=== PATIENT | female | born 1955 | race Caucasian/White ===

== ENCOUNTER → 2020-02-21 11:41 | Outpatient (CLI) | payer MEDICARE, SELFPAY ==
[2013-06-19 18:54] VITALS: BMI 17.9
[2020-02-21 15:34] LABS: Absolute Lymphocyte Count 1.12 X10^3/uL (0.83-4.51); Basophil# 0.03 X10^3/uL; Basophil% 0.5 % (0-1); Eosinophil# 0.05 X10^3/uL; Eosinophils% 0.8 % (0-5); Hematocrit 37.5 % (37-47); Hemoglobin 12.2 g/dL (12.0-15.0); Lymphocyte # 1.12 X10^3/ul (4.0); Mean Corp Hgb Conc 32.5 g/dL (32-36); Mean Corpuscular Hgb 35.7 pg (27.0-32.0); Mean Corpuscular Volume 109.6 fL (81-99); Monocyte# 0.41 X10^3/uL; Monocyte% 6.2 % (0-10); NRBC Flagged by Analyzer 0 % (0-5); Neutrophil # 4.96 X10^3/uL (2.7-7.7); Neutrophil % 75.3 % (47-70); Platelet Count 160 K/mm3 (150-450); RBC Distribution Width CV 12.3 % (11.6-14.6); RBC Distribution Width SD 50.4 fl (35.1-43.9); Red Blood Count 3.42 M/mm3 (4.2-5.4); White Blood Count 6.6 K/mm3 (4.4-11.0)
[2020-02-21 16:02] LABS: ALB/GLOB Ratio 0.8 RATIO (0.9-2.4); AST(SGOT) 82 U/L (15-37); Alanine Aminotransfer ALT/SGPT 47 U/L (13-56); Albumin, Serum 2.8 g/dL (3.2-5.0); Alkaline Phosphatase 290 U/L (45-117); Anion Gap 11 (5-15); BUN 2 mg/dL (7-18); Calcium,Total 8.7 mg/dL (8.5-10.1); Chloride 98 mmol/L (98-107); Cholesterol 123 mg/dL (200); EST Glomerular Filtration Rate 168 mL/min (>60); Est Glom Filt Rate - Afr Amer 203 mL/min (>60); Ferritin 515 ng/mL (8-252); Globulin 3.3 g/dL (2.2-4.2); Glucose 85 mg/dL (74-106); High Density Lipoprotein 61 mg/dL; Potassium 4.1 mmol/L (3.5-5.1); Protein, Total 6.1 g/dL (6.4-8.2); Sodium Level 132 mmol/L (136-145); Thyroid Stim Hormone (TSH) 0.92 uIU/mL (0.358-3.74); Triglycerides 94 mg/dL; Very Low Density Lipoprotein 19 mg/dL (5-40)
[2020-02-21 16:04] LABS: Vitamin B12 1597 pg/mL (211-911); Vitamin D,25 Hydroxy 41.9 ng/mL
== END ==
PROVIDERS: Visit Provider Family Medicine
DX: R53.83 Other fatigue (principal); Z13.220 Encounter for screening for lipoid disorders
CPT/HCPCS: 36415; 80053; 80061; 82306; 82607; 82728; 84443; 85025

== ENCOUNTER → 2020-02-27 14:11 | Outpatient (CLI) | payer MEDICARE, OTHER, SELFPAY ==
--- NOTE | 2020-02-27 14:13 | CT_ITS ---
STUDY: CT CHEST WITHOUT CONTRAST- LOW DOSE SCREENING PROTOCOL REASON FOR EXAM: Female, 64 years old. Current smoker. 52 pack per year history. No current symptoms of lung cancer or pulmonary infection. Shared decision-making with referring PCP documented in patient''s record. RADIATION DOSAGE (If Supplied By Facility): CTDIvol = ( 1.70 ) mGy, DLP = ( 53.82 ) mGycm TECHNIQUE: Low dose screening CT examination performed from the base of the neck to the upper abdomen. Sagittal and coronal reformatted images performed. Sagittal and coronal MIP images provided. The measurements provided are average, rounded measurements per ACR guidelines. COMPARISON: None. FINDINGS: Mild emphysematous changes. Mild bilateral apical scarring. There is no demonstrated pleural abnormality. Normal heart and pericardium. There are calcifications of the coronary arteries. Normal mediastinum. Normal hilar regions. Normal unenhanced pulmonary arteries. There is atherosclerotic calcification of the aortic arch with tortuosity and elongation of the aortic arch and descending thoracic aorta. Normal osseous structures. There is no demonstrated abnormality of the visualized upper abdomen. CT/Low Dose CT Lung Screening IMPRESSION: 1. No significant indeterminate incidental findings requiring additional imaging. 2. Incidental findings include mild emphysema and bilateral apical scarring.. ASSESSMENT CATEGORY: LungRADS 1 - Negative. Continue annual screening with LDCT in 12 months, per established ACR guidelines. Electronically Signed: Brad Osuna MD at 14:44 EST Tel , Service support ,
== END ==
PROVIDERS: PCP Family Medicine; Referring Provider Family Medicine; Visit Provider Family Medicine
DX: F17.210 Nicotine dependence, cigarettes, uncomplicated (principal)
CPT/HCPCS: G0297

== ENCOUNTER → 2020-03-19 09:29 | Outpatient (CLI) | payer MEDICARE, OTHER, SELFPAY ==
[2013-06-19 18:54] VITALS: BMI 17.9
[2020-03-19 10:44] LABS: GGTP 240 U/L (5-55)
[2020-03-20 06:07] LABS: HEPATITIS B SURFACE AG Negative (Negative); Hepatitis A AB, Total Positive (Negative); Hepatitis A IgM Antibody Negative (Negative); Hepatitis B Core AB IgM Negative (Negative); Hepatitis B Core Ab Total Negative (Negative); Hepatitis C Ab 0.1 s/co ratio (0.0-0.9)
[2020-03-20 14:02] LABS: Hep B Surface Antibodies Non Reactive (.)
== END ==
PROVIDERS: PCP Family Medicine; Visit Provider Family Medicine
DX: R79.89 Other specified abnormal findings of blood chemistry (principal); R74.8 Abnormal levels of other serum enzymes
CPT/HCPCS: 36415; 82977; 86704; 86705; 86706; 86708; 86709; 86803; 87340

== ENCOUNTER → 2020-03-23 07:54 | Outpatient (CLI) | payer MEDICARE, OTHER, SELFPAY ==
--- NOTE | 2020-03-23 07:57 | US_ITS ---
STUDY: ABDOMINAL ULTRASOUND - RIGHT UPPER QUADRANT REASON FOR VISIT: Female, 64 years old ELEVATED LIVER ENZYMES -- FATIGUE -- NO APPETITE TECHNIQUE: Ultrasound evaluation of the right upper quadrant was performed with real-time and static campos-scale imaging. TECHNICAL QUALITY: Adequate. COMPARISON: None. FINDINGS: Liver: The liver measures 14.5 cm. There is increased echogenicity consistent with fatty infiltration. The bile ducts are within normal limits. There is hepatic color flow. The direction of portal flow is hepatopetal. There is no demonstrated mass lesion. Gallbladder: Normal distended gallbladder. The gallbladder wall measures 1.5 mm. There is a negative sonographic Denis''s sign. There is no pericholecystic fluid. There are no gallstones. Sludge is seen within the gallbladder lumen. Common Bile Duct (C.B.D.): The common bile duct measures 5.0 mm. Pancreas: Normal size of the head, body and tail of the pancreas. There is normal echogenicity of the pancreas. There is no demonstrated pancreatic mass or cyst. Right Kidney: Normal size of the right kidney. The right kidney measures 9 cm x 4.1 cm x 3.8 cm. Normal renal cortex. The right cortex measures 1.2 cm. There is a 1.6 cm x 1.3 cm x 1.1 cm cyst. There is no right hydronephrosis. US/Abdomen Limited IMPRESSION: Fatty infiltration of the liver. Sludge is seen within the gallbladder lumen. 1.6 cm x 1.3 cm x 1.1 cm right renal cyst Electronically Signed: Jewel Tee, at 8:53 EST , Service support ,
== END ==
PROVIDERS: PCP Family Medicine; Referring Provider Family Medicine; Visit Provider Family Medicine
DX: R79.89 Other specified abnormal findings of blood chemistry (principal)
CPT/HCPCS: 76705

== ENCOUNTER → 2020-05-07 11:19 | Outpatient (CLI) | payer MEDICARE, OTHER, SELFPAY ==
[2013-06-19 18:54] VITALS: BMI 17.9
[2020-05-07 15:14] LABS: Absolute Lymphocyte Count 1.06 X10^3/uL (0.83-4.51); Absolute Neutrophil Count 5.4 X10^3/uL (2.0-7.7); Basophil# 0.02 X10^3/uL; Basophil% 0.3 % (0-1); Eosinophil# 0.02 X10^3/uL; Eosinophils% 0.3 % (0-5); Hematocrit 34.1 % (37-47); Hemoglobin 10.9 g/dL (12.0-15.0); Lymphocyte # 1.06 X10^3/ul (4.0); Lymphocyte % 15.5 % (19-41); Mean Corpuscular Volume 112.5 fL (81-99); Mean Platelet Vol. 12.5 fl (6.2-12.0); Monocyte# 0.37 X10^3/uL; Monocyte% 5.4 % (0-10); NRBC Flagged by Analyzer 0 % (0-5); Neutrophil # 5.35 X10^3/uL (2.7-7.7); Neutrophil % 78.2 % (47-70); Platelet Count 169 K/mm3 (150-450); RBC Distribution Width CV 12.8 % (11.6-14.6); RBC Distribution Width SD 52.9 fl (35.1-43.9); Red Blood Count 3.03 M/mm3 (4.2-5.4); White Blood Count 6.8 K/mm3 (4.4-11.0)
[2020-05-07 15:48] LABS: ALB/GLOB Ratio 0.8 RATIO (0.9-2.4); AST(SGOT) 73 U/L (15-37); Alanine Aminotransfer ALT/SGPT 42 U/L (13-56); Albumin, Serum 2.7 g/dL (3.2-5.0); Alkaline Phosphatase 343 U/L (45-117); Anion Gap 14 (5-15); BUN 4 mg/dL (7-18); BUN/Creat Ratio 6.4 RATIO (10-20); Chloride 95 mmol/L (98-107); Creatinine, Serum 0.62 mg/dL (0.55-1.02); EST Glomerular Filtration Rate 102 mL/min (>60); Est Glom Filt Rate - Afr Amer 123 mL/min (>60); Globulin 3.4 g/dL (2.2-4.2); Glucose 94 mg/dL (74-106); Protein, Total 6.1 g/dL (6.4-8.2); Sodium Level 129 mmol/L (136-145)
== END ==
PROVIDERS: PCP Family Medicine; Referring Provider Family Medicine; Visit Provider Family Medicine
DX: K62.5 Hemorrhage of anus and rectum (principal)
CPT/HCPCS: 36415; 80053; 85025

== ENCOUNTER 2020-05-07 21:49 | Inpatient (IN) | payer MEDICARE, OTHER, SELFPAY ==
[2020-05-07 21:50] VITALS: BP 95/68; PULSE 114; RESP 15; O2SAT 98
[2020-05-07 21:51] VITALS: BP 95/68; PULSE 115; RESP 16; TEMP 36.6; O2SAT 100; BMI 16.7
--- NOTE | 2020-05-07 22:25 | RAD_ITS ---
STUDY: X-RAY - LEFT FEMUR REASON FOR STUDY: Female, 64 years old. S/P FALL -- C/O LT HIP PAIN TECHNIQUE: 2 view(s) of the femur. COMPARISON: None. FINDINGS: Comminuted displaced fracture of the intertrochanteric region of the femur. Femoral shaft is significantly cephalad to the femoral neck. Femoral shaft is also dorsal to the femoral head. Normal femoral shaft and distal femoral metaphysis. Normal visualized soft tissue structure. RAD/Femur Min 2 Views IMPRESSION: Significantly displaced intertrochanteric fracture of the femur. Electronically Signed: Ellis Herrera MD at 23:31 EST , Service support ,
--- NOTE | 2020-05-07 22:26 | EKG12_ITS ---
Test Reason : FALL Blood Pressure : / mmHG Vent. Rate : 095 BPM Atrial Rate : 095 BPM P-R Int : 120 ms QRS Dur : 066 ms QT Int : 376 ms P-R-T Axes : 082 028 060 degrees QTc Int : 472 ms Normal sinus rhythm Normal ECG Confirmed by BRIGIDO CELIS, ANDREY ([id number]), editor book RUBIA CRUZ ([id number]) on 05/09/2020 12:45:48 PM Referred By: LUZMA Confirmed By:ANDREY FOFANA MD
--- NOTE | 2020-05-07 22:26 | RAD_ITS ---
STUDY: X-RAY - PELVIS REASON FOR EXAM: Female, 64 years old. S/P FALL -- C/O LT HIP PAIN TECHNIQUE: One view of the pelvis was obtained. COMPARISON: None. FINDINGS: Comminuted displaced fracture of the intertrochanteric region of the femur. Femoral shaft is significantly cephalad to the femoral neck. Femoral shaft is also dorsal to the femoral head. Normal bilateral iliac wings, sacroiliac joints and visualized sacrum. Normal visualized bilateral superior and inferior pubic rami. Normal pubic symphysis. Normal ischial tuberosities. Normal visualized right femoral head. Normal right acetabulum. Normal right hip joint. RAD/Pelvis 1 or 2 Views IMPRESSION: Significantly displaced intertrochanteric fracture of the femur. Electronically Signed: Ellis Herrera MD at 23:33 EST , Service support ,
[2020-05-07] MEDS: fentaNYL 100 MCG/2 ML Ampul 25 MCG IM (22:38)
[2020-05-07 22:56] VITALS: BP 104/72; PULSE 95; RESP 18; O2SAT 100
[2020-05-07 23:07] LABS: Absolute Neutrophil Count 12.1 X10^3/uL (2.0-7.7); Basophil# 0.03 X10^3/uL; Basophil% 0.2 % (0-1); Eosinophil# 0.02 X10^3/uL; Eosinophils% 0.1 % (0-5); Hematocrit 29.1 % (37-47); Hemoglobin 9.6 g/dL (12.0-15.0); Mean Corpuscular Hgb 36.6 pg (27.0-32.0); Mean Corpuscular Volume 111.1 fL (81-99); Mean Platelet Vol. 12.1 fl (6.2-12.0); Monocyte# 0.92 X10^3/uL; Monocyte% 6.2 % (0-10); NRBC Flagged by Analyzer 0 % (0-5); Neutrophil # 12.05 X10^3/uL (2.7-7.7); Neutrophil % 80.6 % (47-70); Platelet Count 170 K/mm3 (150-450); RBC Distribution Width CV 12.6 % (11.6-14.6); RBC Distribution Width SD 50.4 fl (35.1-43.9); Red Blood Count 2.62 M/mm3 (4.2-5.4)
--- NOTE | 2020-05-07 23:10 | RAD_ITS ---
STUDY: X-RAY CHEST REASON FOR EXAM: Female, 64 years old. preop -- S/P FALL -- C/O LT HIP PAIN TECHNIQUE: Single AP portable view of the chest. COMPARISON: None. FINDINGS: The lungs are clear and expanded. There is no demonstrated pleural abnormality. Normal size heart. Normal mediastinum and maame. Normal visualized pulmonary arteries. Normal visualized aortic arch and descending thoracic aorta. There are diffuse degenerative changes of the visualized thoracic spine. Normal visualized ribs, clavicles, and shoulders. There is no demonstrated abnormality of the visualized soft tissue structures of the upper abdomen. RAD/Chest 1 View (Portable) IMPRESSION: No definite acute or significant abnormality seen. Electronically Signed: Ellis Herrera MD at 23:34 EST , Service support ,
[2020-05-07 23:11] LABS: International Normalized Ratio 1.2; Prothrombin Time (Protime)PT. 14.7 SECONDS (11.7-14.9)
[2020-05-07 23:12] LABS: Partial Thromboplast Time 23.2 Seconds (24.1-36.2)
[2020-05-07 23:16] LABS: Anion Gap 17 (5-15); BUN 4 mg/dL (7-18); BUN/Creat Ratio 5.8 RATIO (10-20); Calcium,Total 8.5 mg/dL (8.5-10.1); Chloride 93 mmol/L (98-107); Creatinine, Serum 0.69 mg/dL (0.55-1.02); EST Glomerular Filtration Rate 90 mL/min (>60); Est Glom Filt Rate - Afr Amer 109 mL/min (>60); Estimated Creatinine Clearance 34.07 ml/min; Glucose 118 mg/dL (74-106); Sodium Level 125 mmol/L (136-145)
--- NOTE | 2020-05-07 23:45 | ED.VIS.FALL ---
History of Present Illness Chief Complaint: Fall Informant: Patient, Family Occurred: Today Mechanism/Context: Same level fall, Trip Usually ambulates: Without assistance Narrative: Patient is a 64-year-old female without any known medical history presenting with left hip pain. Patient was walking inside when she somehow tripped and fell. Patient could not get up and had left hip pain. She states she has pain when she moves her hip. EMS was called and patient was transported to the emergency room. Patient notes she has had a general decline in her health over the past year since her . She lives home alone and ambulates independently at baseline. Patient has been having episodes of diarrhea with blood in her stool. She recently saw her primary care doctor who confirmed the blood. Patient is a consultation appointment to see Dr. Person for further evaluation of this on Thursday, 2 days from now. Patient also had a weight loss over this time. Patient denies associated numbness or tingling. She denies any shortness of breath or difficulty breathing. She does smoke cigarettes daily. She denies any other complaints at this time. Past Medical History - Allergies and Home Meds Allergies/Adverse Reactions: Allergies No Known Allergies Allergy (Verified 05/07/20 21:51) Past Medical History: None Surgical History: noncontributory Lives: Alone Smoking Status: Current every day smoker Alcohol: None Drugs: None Review of Systems General: Reports: Malaise, Weight loss. Denies: Chills, Fever, Sweats Eyes: Denies: Visual changes - bilaterally, Diplopia ENT: Denies: Rhinorrhea, Sore throat Cardiovascular: Denies: Chest pain, Palpitations Respiratory: Reports: Cough - Chronic smoker's cough. Denies: Dyspnea Gastrointestinal: Reports: Hematochezia. Denies: Abdominal pain, Nausea, Vomiting, Diarrhea, Melena Genitourinary: Denies: Dysuria, Hematuria, Frequency Musculoskeletal: Reports: Extremity Pain - Left hip. Denies: Back pain Skin: Denies: Rash, Wounds Neurological: Denies: Headache, Weakness, Numbness Physical Exam Vital Signs/Narrative: Vital Signs Temp Pulse Resp BP Pulse Ox 05/07/20 22:56 95 18 104/72 100 05/07/20 21:51 97.8 F 115 H 16 95/68 100 05/07/20 21:50 114 H 15 95/68 98 Inital Vital Signs reviewed: Yes General: Well developed, Cachectic Head: Normocephalic, Atraumatic Eyes: Perrl, EOMI ENT: TM's clear, No hemotympanum or drainage, No trauma. Negative for: Nasal trauma, Nasal septal hematoma Neck: Nontender, Full ROM. Negative for: Spinal Tenderness, Paraspinal Tenderness Cardiovascular: Regular rate, Regular rhythm, No murmurs, - - 2+ bilateral DP pulses Respiratory: No distress, CTA bilaterally, Chest nontender Abdomen: Soft, Nontender, Nondistended, Normal bowel sounds Back: Nontender Extremeties: Left lower extremity is shortened and externally rotated. She has tenderness palpation with range of motion of the left hip. Also tenderness to palpation over the left greater trochanter. No other deformity or injury is noted. Skin: No rash, Pallor. Negative for: Trauma Neurological: Alert, Oriented x3, Cranial nerves II-XII grossly intact, Normal Strength, Normal Sensation Psychological: Normal affect Diagnostic/Tx/Re-eval Chest X-Ray - ED: 1 View, Read by ED Physician, Read by Radiologist, No Acute Disease Clinical Impression(s) from Imaging Studies Femur X-Ray 05/07/20 22:25 IMPRESSION: Significantly displaced intertrochanteric fracture of the femur. Electronically Signed: Ellis Herrera MD at 23:31 EST , Service support , Pelvis X-Ray 05/07/20 22:26 IMPRESSION: Significantly displaced intertrochanteric fracture of the femur. Electronically Signed: Ellis Herrera MD at 23:33 EST , Service support , Chest X-Ray 05/07/20 23:10 IMPRESSION: No definite acute or significant abnormality seen. Electronically Signed: Ellis Herrera MD at 23:34 EST , Service support , Laboratory Data 05/07/20 05/07/20 05/07/20 22:55 22:55 22:55 WBC 15.0 H RBC 2.62 L Hgb 9.6 L Hct 29.1 L MCV 111.1 H MCH 36.6 H MCHC 33.0 RDW Std Deviation 50.4 H RDW Coeff of Alana 12.6 Plt Count 170 MPV 12.1 H Immature Gran % (Auto) 0.900 Neut % (Auto) 80.6 H Lymph % (Auto) 12.0 L [place] % (Auto) 6.2 Eos % (Auto) 0.1 Baso % (Auto) 0.2 Absolute Neuts (auto) 12.1 H Absolute Lymphs (auto) 1.80 Nucleated RBC % 0 PT 14.7 INR 1.2 APTT 23.2 L Sodium 125 L Potassium 4.0 Chloride 93 L Carbon Dioxide 15.0 L Anion Gap 17 H BUN 4 L Creatinine 0.69 Estim Creat Clear Calc 34.07 Est GFR (MDRD) Af Amer 109 Est GFR (MDRD) Non-Af 90 BUN/Creatinine Ratio 5.8 L Glucose 118 H Calcium 8.5 - Rhythm Strip Rhythm Strip: Sinus Rhythm Rate: 95 Ectopy: None - EKG Initial EKG Interpretation: Sinus Rhythm, - - Normal sinus rhythm at a rate of 95 Normal axis Normal intervals Normal ST segments Interpreted by emergency medicine physician - Medical Decision Making Patient evaluated after mechanical fall. Patient has an obvious deformity of her left hip. X-ray confirms left intertrochanteric fracture with significant displacement. Patient is neuro vastly intact. She is given 25 micrograms of fentanyl for pain control which provides good relief. Patient is given a small fluid bolus. Patient be admitted to medicine service for medical optimization in anticipation of ORIF for her hip. Case is discussed with Ortho on-call, Dr. Mckee. Patient's lab work is remarkable for no leukocytosis and a mild drop in her hemoglobin. I suspect her leukocytosis is reactive from her fall. Patient has been having some ongoing GI bleeding per her history however her BUN is normal. Patient is hyponatremic with a sodium of 125. Patient's anion gap is mildly elevated at 17. I suspect patient has a component of malnutrition and dehydration. ED Disposition - Plan for ED Patient: Disposition: Acute Care Hospital [facility] Diagnosis: Closed left hip fracture, Anemia, Hyponatremia
[2020-05-08] VITALS (18 sets, daily range): BP systolic 102–145; BP diastolic 57–99; PULSE 75–114; RESP 16–18; TEMP 36.1–37; O2SAT 93–100; BMI 15.3
--- NOTE | 2020-05-08 00:11 | PCM.HP.STD ---
Problem List (1) Closed left hip fracture Status: Acute (2) Anemia Status: Chronic (3) Hyponatremia Status: Acute History of Present Illness Date of Admission: 05/08/20 Chief Complaint: fall with closed left hip fracture The patient is a 64 year old female patient with a fall earlier this evening while she was going in her garage to get something from her car the patient describes turning and then suddenly falling to the ground. She denies loss of consciousness no chest pain or shortness of breath at the time of falling or thereafter. The patient does have a history of anemia and and her hemoglobin currently is 9.6. Initial sodium was low at 125 and will be corrected over the night. Orthopedic surgeon has been notified patient will be made n.p.o. pending surgery evaluation. Pain is currently controlled in the ER. Past Medical History Past Medical History (Chronic Problems): Chronic Problems Anemia (Chronic) Allergies No Known Allergies Allergy (Verified 05/07/20 21:51) Home Medications: Ambulatory Orders Medication Instructions Recorded No Known/Unobtainable [No Known 06/19/13 Home Medications] Surgical History: noncontributory Lives: Alone Smoking Status: Current every day smoker Tobacco Use: Cigarettes Alcohol: None Drugs: None - *Family History Maternal History Items: No pertinent history Review of Systems Constitutional: Reports: Weakness, -. Denies: Chills, Fever, Weight Change HEENT: Denies: Head Aches, Sinus Congestion, Sinus Drainage Cardiovascular: Denies: Chest Pain, Palpitations Respiratory: Denies: Cough, Shortness of breath at rest, Sputum production Gastrointestinal: Denies: Abdominal Pain, Nausea, Vomiting Genitourinary: Denies: Dysuria Musculoskeletal: Reports: Joint Pain, Joint Tenderness Skin: Denies: Rash, Wounds Neurological: Denies: Numbness, Tingling, Focal weakness Psychiatric: Denies: Anxiety, Depression, Homicidal Ideations, Suicidal Ideations Hematologic/ Lymphatic: Denies: Easy Bruising, Easy Bleeding VTE Information - Inpt Only VTE Present on Admission: No VTE Mechan Device Prophylaxis: None VTE Pharm Prophylaxis ordered?: Yes Patient Problems: Active and Suspected Problems Closed left hip fracture (Acute) Hyponatremia (Acute) - Physical Exam Vitals/I&O's: Vital Signs Temp Pulse Resp BP Pulse Ox 97.8 F 95 18 104/72 100 05/07/20 21:51 05/07/20 22:56 05/07/20 22:56 05/07/20 22:56 05/07/20 22:56 Oxygen Delivery Method Room Air Weight: 85 lb 15.684 oz Body Mass Index (BMI) 16.7 General: Alert, Oriented x3, Cooperative HEENT: Atraumatic, Normocephalic Neck: Supple Lungs: Clear to auscultation, Normal air movement Cardiovascular: Regular rate, Normal S1, Normal S2, No murmurs Abdomen: Bowel Sounds Present, Soft, Non Tender Extremities: No edema Skin: No rashes Musculoskeletal: Tenderness - left hip Neurological: Neuro grossly intact Psych/Mental Status: Normal Affect, Appropriate Laboratory Results 05/07/20 22:55: WBC 15.0 H, RBC 2.62 L, Hgb 9.6 L, Hct 29.1 L, MCV 111.1 H, MCH 36.6 H, MCHC 33.0, RDW Std Deviation 50.4 H, RDW Coeff of Alana 12.6, Plt Count 170, MPV 12.1 H, Immature Gran % (Auto) 0.900, Neut % (Auto) 80.6 H, Lymph % (Auto) 12.0 L, [place] % (Auto) 6.2, Eos % (Auto) 0.1, Baso % (Auto) 0.2, Absolute Neuts (auto) 12.1 H, Absolute Lymphs (auto) 1.80, Nucleated RBC % 0 05/07/20 22:55: PT 14.7, INR 1.2, APTT 23.2 L 05/07/20 22:55: Sodium 125 L, Potassium 4.0, Chloride 93 L, Carbon Dioxide 15.0 L, Anion Gap 17 H, BUN 4 L, Creatinine 0.69, Estim Creat Clear Calc 34.07, Est GFR (MDRD) Af Amer 109, Est GFR (MDRD) Non-Af 90, BUN/Creatinine Ratio 5.8 L, Glucose 118 H, Calcium 8.5 Assessment/Plan All Active Problems Closed left hip fracture (Acute) Hyponatremia (Acute) Chronic Problems Anemia (Chronic) Plan 1. Left hip fracture?admit patient to general medical floor, consult orthopedic surgeon Dr. Mckee, continue bedrest only, start morphine as needed for pain, make patient n.p.o. pending surgery. IV fluids as below 2. Hyponatremia?IV normal saline at 125 cc/h, repeat BMP in the morning 3. Anemia?repeat CBC in the morning 4. DVT prophylaxis?low molecular weight heparin Inpatient E&M: [id number] Init Hosp L3
[2020-05-08] MEDS: fentaNYL 100 MCG/2 ML Ampul 25 MCG IV (00:23)
[2020-05-08] MEDS: 0.9% Normal Saline 1,000 ML 125 ML IV (01:57)
[2020-05-08] MEDS: 0.9% Saline Lock 10 ML Syringe IV ×3 (02:02→21:19)
[2020-05-08 03:48] LABS: Absolute Lymphocyte Count 1.23 X10^3/uL (0.83-4.51); Absolute Neutrophil Count 5.2 X10^3/uL (2.0-7.7); Basophil# 0.01 X10^3/uL; Basophil% 0.1 % (0-1); Hematocrit 24.8 % (37-47); Hemoglobin 8.2 g/dL (12.0-15.0); Lymphocyte # 1.23 X10^3/ul (4.0); Lymphocyte % 17.8 % (19-41); Mean Corp Hgb Conc 33.1 g/dL (32-36); Mean Corpuscular Hgb 36.1 pg (27.0-32.0); Mean Corpuscular Volume 109.3 fL (81-99); Monocyte# 0.49 X10^3/uL; Monocyte% 7.1 % (0-10); NRBC Flagged by Analyzer 0 % (0-5); Neutrophil # 5.15 X10^3/uL (2.7-7.7); Neutrophil % 74.6 % (47-70); Platelet Count 129 K/mm3 (150-450); RBC Distribution Width CV 12.5 % (11.6-14.6); RBC Distribution Width SD 49.1 fl (35.1-43.9); Red Blood Count 2.27 M/mm3 (4.2-5.4); White Blood Count 6.9 K/mm3 (4.4-11.0)
[2020-05-08 03:54] LABS: International Normalized Ratio 1.4; Prothrombin Time (Protime)PT. 16.7 SECONDS (11.7-14.9)
[2020-05-08 03:56] LABS: Partial Thromboplast Time 29.8 Seconds (24.1-36.2)
[2020-05-08 03:57] LABS: Anion Gap 9 (5-15); BUN 5 mg/dL (7-18); BUN/Creat Ratio 9.8 RATIO (10-20); Calcium,Total 8.1 mg/dL (8.5-10.1); Chloride 96 mmol/L (98-107); Creatinine, Serum 0.51 mg/dL (0.55-1.02); EST Glomerular Filtration Rate 128 mL/min (>60); Est Glom Filt Rate - Afr Amer 155 mL/min (>60); Glucose 99 mg/dL (74-106); Potassium 4.3 mmol/L (3.5-5.1); Sodium Level 128 mmol/L (136-145)
--- NOTE | 2020-05-08 05:55 | NURSING ---
Per lab, blood is ready for this pt if we need it.
--- NOTE | 2020-05-08 07:45 | CON.PCM_ITS ---
Problem List (1) Closed left hip fracture Status: Acute (2) Anemia Status: Chronic Reason for Consult Date of Consultation: 05/08/20 Reason for Consultation: Left hip intertrochanteric fracture History of Present Illness: The patient is a 64 year old F [] Is a pleasant 64-year-old female who was transported via squad to the emergency department as result of the fall sustained at her home, in her garage. Patient states that she has slipped in the garage landing onto her left hip. Patient denies striking her head any loss of consciousness or any other associated injury with this fall. Patient denies any other previous injury to this hip prior to her fall. Patient at this time denies any chest pain, shortness of breath. Patient does admit that she is a smoker and does have a chronic cough. She denies any recent illnesses. Patient denies any head or neck or back pain. Denies any numbness or tingling of the upper extremities. Patient feels she has full range of motion of the right leg. Without limitations. At this time there is no other complaints. I did discuss and review at length in detail 10 review of systems all pertinent positive negatives are noted in the medical record. Past Medical History Past Medical History (Chronic Problems): Chronic Problems Anemia (Chronic) Allergies No Known Allergies Allergy (Verified 05/07/20 21:51) Home Medications: Ambulatory Orders Medication Instructions Recorded No Known/Unobtainable [No Known 06/19/13 Home Medications] Surgical History: noncontributory Lives: Alone Smoking Status: Current every day smoker Tobacco Use: Cigarettes Alcohol: None Drugs: None - *Family History Maternal History Items: No pertinent history Review of Systems Respiratory: Reports: Cough Musculoskeletal: Reports: Leg Pain Patient Problems: Active and Suspected Problems Closed left hip fracture (Acute) Hyponatremia (Acute) Objective: Upon entering the room I found the patient lying in bed awake comfortable, stating her pain is been well managed. Patient does have a productive cough, which she states she has had due to 1 pack a day history of smoking. Cranial nerves II through XII grossly intact. Patient was no obvious respiratory distress and speaking in full sentences. Patient no pain to palpation cervical thoracic lumbosacral spine. Patient full range of motion the upper extremities with good muscle tone and strength. Patient had full range of motion of the right hip knee and ankle without pain. Patient's left leg was slightly externally rotated and shortened. Patient was exquisitely tender to palpation with palpable defect deformity of the left hip. No active range of motion was attempted of the left knee ankle or foot. Patient did actively able to pl antarflex dorsiflex her foot. She had good strong posterior tibial and dorsalis pedis pulses. No paracentesis was reported. Is no obvious trauma noted to the head face and neck. No obvious trauma to the anterior chest wall or abdomen. Overlying tissue of the left hip was intact with no indication of an open fracture or soft tissue trauma. - Physical Exam Vitals/I&O's: Vital Signs Temp Pulse Resp BP Pulse Ox 97.6 F L 91 16 111/71 97 05/08/20 07:26 05/08/20 07:26 05/08/20 07:26 05/08/20 07:26 05/08/20 07:26 Oxygen Delivery Method Room Air Weight: 36.741 kg Body Mass Index (BMI) 15.3 Intake and Output for Last 24 Hours 05/06/20 05/07/20 05/08/20 23:59 23:59 23:59 Intake Total 1179.17 / 1179.17 Balance 1179.17 / 1179.17 General: Alert, Oriented x3, Cooperative HEENT: PERRLA Oral: Moist Mucosa Skin: No rashes Neurological: Cranial nerves II-XII grossly intact Psych/Mental Status: Normal Affect, Alert and oriented to time, place, person, mood and affect Microbiology Past 72 Hours 05/08/20 00:05 Mucosa - Nose SARS-CoV-2 Antigen (Rapid) - Final Laboratory Results 05/07/20 22:55: WBC 15.0 H, RBC 2.62 L, Hgb 9.6 L, Hct 29.1 L, MCV 111.1 H, MCH 36.6 H, MCHC 33.0, RDW Std Deviation 50.4 H, RDW Coeff of Alana 12.6, Plt Count 170, MPV 12.1 H, Immature Gran % (Auto) 0.900, Neut % (Auto) 80.6 H, Lymph % (Auto) 12.0 L, [place] % (Auto) 6.2, Eos % (Auto) 0.1, Baso % (Auto) 0.2, Absolute Neuts (auto) 12.1 H, Absolute Lymphs (auto) 1.80, Nucleated RBC % 0 05/07/20 22:55: PT 14.7, INR 1.2, APTT 23.2 L 05/07/20 22:55: Sodium 125 L, Potassium 4.0, Chloride 93 L, Carbon Dioxide 15.0 L, Anion Gap 17 H, BUN 4 L, Creatinine 0.69, Estim Creat Clear Calc 34.07, Est GFR (MDRD) Af Amer 109, Est GFR (MDRD) Non-Af 90, BUN/Creatinine Ratio 5.8 L, Glucose 118 H, Calcium 8.5 05/08/20 00:05: Blood Type B NEGATIVE, Antibody Screen NEGATIVE 05/08/20 00:15: Crossmatch See Detail 05/08/20 03:14: PT 16.7 H, INR 1.4, APTT 29.8 05/08/20 03:14: WBC 6.9, RBC 2.27 L, Hgb 8.2 L, Hct 24.8 L, MCV 109.3 H, MCH 36.1 H, MCHC 33.1, RDW Std Deviation 49.1 H, RDW Coeff of Alana 12.5, Plt Count 129 L, MPV 12.0, Immature Gran % (Auto) 0.400, Neut % (Auto) 74.6 H, Lymph % (Auto) 17.8 L, [place] % (Auto) 7.1, Eos % (Auto) 0.0, Baso % (Auto) 0.1, Absolute Neuts (auto) 5.2, Absolute Lymphs (auto) 1.23, Nucleated RBC % 0 05/08/20 03:14: Sodium 128 L, Potassium 4.3, Chloride 96 L, Carbon Dioxide 23.0, Anion Gap 9, BUN 5 L, Creatinine 0.51 L, Estim Creat Clear Calc 32.10, Est GFR (MDRD) Af Amer 155, Est GFR (MDRD) Non-Af 128, BUN/Creatinine Ratio 9.8 L, Glucose 99, Calcium 8.1 L Current Medications Sodium Chloride () 1,000 mls @ 125 mls/hr IV .Q8H KOFFI Last Infusion: 05/08/20 07:23 Dose: 0 mls/hr Documented by: Sodium Chloride () 250 mls @ 15 mls/hr IV .[id number] PRN PRN Reason: Saline Flush Sodium Chloride () 500 mls @ 15 mls/hr IV PRN PRN PRN Reason: Blood Transfusion Morphine Sulfate (Morphine 4 Mg/Ml Syringe) 4 mg IV Q3H PRN PRN PRN Reason: Pain Score 6-10 Nutritional Formula (Lactose Free) (Ensure Enlive 120 Ml Liquid) 120 ml PO 4X/DAY KOFFI Last Admin: 05/08/20 07:24 Dose: Not Given Documented by: Ondansetron HCl (Ondansetron 4 Mg/2 Ml Vial) 4 mg IV Q8H PRN PRN PRN Reason: NAUSEA/VOMITING Sodium Chloride (0.9% Saline Lock 10 Ml Syringe) 10 - 40 ml IV UD PRN PRN Reason: SALINE FLUSH Last Admin: 05/08/20 02:02 Dose: 10 ml Documented by: Assessment/Plan All Active Problems Closed left hip fracture (Acute) Hyponatremia (Acute) Impression; left hip intertrochanteric fracture with 100% displacement Plan 1. Continue all pain medications as prescribed 2. Patient receiving 2 units of packed red blood cells as ordered by medicine 3. Patient to undergo open reduction internal fixation of the left hip intertrochanteric fracture. Anticipated date of surgery is 05/09/20 4. Encourage incentive spirometry 5. Continue ice applied to the left hip 6. Medicine will continue to medically manage.
[2020-05-08] MEDS: Morphine 4 MG/ML Syringe IV ×2 (08:36→21:19)
[2020-05-08] MEDS: Ondansetron 4 MG/2 ML Vial IV ×2 (08:37→21:19)
--- NOTE | 2020-05-08 10:55 | CASEMGMT ---
IRINEO COLLINS Face to Face with patient for initial transition planning/care coordination assessment. IRINEO COLLINS introduced self and role at [facility]. Patient lying in bed, alert and oriented. Patient willing to participate in assessment and is able to answer all questions appropriately. Care providers, pharmacy, and demographics verified. Patient wishes to discharge home. Patient states she has no further needs or concerns at this time. CM to follow for discharge planning needs that may arise. PCP: [facility] Specialists: none prior Preferred [facility]acy: [facility] Insurance: Medicare and MMO Prescription Benefit: yes Living Will/HPOA: yes, yes son Sixto Keith LNOK: son Living Arrangements: Patient lives alone in a single story home with 2 steps to enter with rail. Patient reports she was independent. Transportation: son DME/HHC: Patient has a cane at home. She has not had any prior HHC. Patient will need a walker at dc if she dc's home. Disposition Plan: Patient wishes to discharge home with outpt therapy or HHC, family support and follow up plans in place.
--- NOTE | 2020-05-08 11:26 | PCM.HOSP.N ---
Hospitalist Note Patient was seen and examined today briefly, she has no chronic medical problems according to the patient, she takes only vitamins at home. Patient does smoke but she has never been hospitalized for any COPD related illness. Patient received 2 units of packed red blood cells, she seemed unaware that she has a history of anemia even though she is being sent for endoscopy due to blood in her stool by her PCP. Patient has no complaints of any chest pain or shortness of breath at this time, her labs were reviewed, I do not think she needs repeat H&H before surgery, patient's chest x-ray is unremarkable, and her EKG shows a normal sinus rhythm without evidence of ischemic changes. I feel patient is stable for surgery at this time and she is at low risk for complications.
[2020-05-08 12:54] LABS: Hematocrit 39.1 % (37-47); Hemoglobin 13.2 g/dL (12.0-15.0)
--- NOTE | 2020-05-08 13:30 | RAD_ITS ---
STUDY: X-RAY - PELVIS AND LEFT HIP REASON FOR EXAM: Female, 64 years old. IM RODDING TECHNIQUE: 6 views of the pelvis and hip. COMPARISON: None. FINDINGS: Multiple images obtained intraoperatively during left hip pinning. Intertrochanteric fracture is demonstrated. Intramedullary james and compression screws are present. RAD/Hip Min 2 Views (Portable) IMPRESSION: Intraoperative images obtained for hardware localization. Electronically Signed: Cinda Estrada MD at 16:48 EST Tel , Service support ,
[2020-05-08] MEDS: Cefazolin 2 GM in 0.9% Normal Saline 100 ML IV (13:58)
[2020-05-08] MEDS: Lactated Ringers 1,000 ML 100 ML IV (14:05)
--- NOTE | 2020-05-08 14:31 | CASEMGMT ---
Social Work Note SW received consult for Grief/Loss/Bereavement. SW attempted to meet with pt. Pt off floor for surgery. SW will follow up with pt tomorrow. Natalie Linda TEXTILE STYLIST, CHIEF PROCUREMENT OFFICER
--- NOTE | 2020-05-08 15:08 | OP.PCM_ITS ---
Report of Operation Date of Procedure: 05/08/20 Pre-Operative Diagnosis: L HIP IT FRX Post-Operative Diagnosis: L HIP IT FRX Surgery/Procedure Performed:: L CEPHALLOMEDULLARY NAIL Description of Surgical Findings:: STABLE REDUCTION assurance specialist: ALEX MASTERSON Anesthesiologist: Constantine Oleary Special Medications: ANCEF Estimated Blood Loss (mL): 250 Fluids Replaced: 1000 ML Description of Procedure: Components used: 1. [employer]hew InterTAN nail SHORT 11.5MM 125 DEGREE 2. [employer] InterTAN lag screw 80mm 3. [employer]hew 27.5 millimeter interlocking screw Brief history operative indications: After extensive discussion including risk and benefits which include but are not limited to blood loss, PEs, DVTs, neurovascular damage, nonunions, malunions and screw cut out patient has elected to proceed with a L cephalo-medullary nail. Procedure: On the date of the procedure the patient's L hip was marked in the preoperative area and patient was taken back to the operating room. Anesthetic was administered and patient was transferred to the table were all bony prominence identified well-padded and the ipsilateral arm was placed across the chest. Patient was then translated down to the perineal post and the operative leg was placed in the boot while the nonoperative leg was lowered and secured. The operative leg was placed in traction and internal rotation and live fluoroscopy was used to verify adequate reduction. The operative leg was then prepped in a sterile fashion with chlorhexidine while the surgeon scrubbed. Upon reentering the room the operative extremity was draped in the standard orthopedic fashion. Skin incision was marked and a timeout was called. Everyone agreed upon the side, the site, the procedure be performed, patient's identity, and antibiotics given. Skin incision was made and the position of the entry guidepin was verified using live fluoroscopy. Once we were satisfied with our position the pin was advanced in the soft tissue protector was placed over the pin. The entry reamer was then advanced into the proximal portion of the femur. A guidewire was placed down the intramedullary canal and fluoroscopy was used to verify that the anterior cortex had not been breached distally as well as satisfactory distal positioning. We then used live fluoroscopy to verify the length of the nail and a [employer] InterTAN SHORT by 11.5 mm 125 hip nail was selected. The 13 mm reamer was then passed. The nail was then attached to the graphic pre press trades worker and inserted into the intramedullary canal. The appropriate depth was verified and the skin incision for the lag screw was made. The lag screw guidepin was then placed under live fluoroscopy and when a satisfactory position was obtained the length of the screw was measured and the standard technique to drill for the lag screws was performed. The anti-rotation bar was used. At this time a 80MM lag screw was selected with its corresponding compression screw. The lag screw was then passed and traction was left off the leg. The compression screw was then passed and the fracture was compressed. The final position of the lag screw was verified under fluoroscopy. At this point we did not like our reduction on the lateral. The screws and pin were removed and a martin was placed over the inferior anterior neck of the femur and traction was again used to adequately reduce the fracture. The guide pin was again placed under fluoro and the above steps wre repeated to compress the fracture. Attention was then turned to the distal portion of the nail and the extramedullary guide was used to locate the distal interlocking screw and a 27.5 mm distal interlocking screw was placed using this technique. Live fluoroscopy was used to verify the position of the interlocking screw and the final position of the hip components. Once we were satisfied with our positioning the wounds were copiously irrigated out with normal saline skin was closed with 2-0 Vicryl and koffi for final skin closure. A sterile dressing was placed with Xeroform. Patient was then awakened by anesthesia transferred from the fracture table back to their hospital bed and transferred to the PACU for recovery. Postoperative plan: Patient will be weight-bear as tolerated. DVT prophylaxis per primary service with knee-high stockings. Follow up in the office in 2 weeks. - Complications none - Admit VTE Documentation VTE Present on Admission: No VTE Mechan Device Prophylaxis: SCD's, Thigh High ARIN Hose VTE Pharm Prophylaxis ordered?: Yes
[2020-05-08] MEDS: 0.9% Normal Saline 1,000 ML 100 ML IV (21:14)
[2020-05-08] MEDS: Cefazolin 1 GM/50 ML BAG IV (21:18)
[2020-05-09] VITALS (16 sets, daily range): BP systolic 89–144; BP diastolic 58–91; PULSE 76–96; RESP 16–18; TEMP 35.4–37.1; O2SAT 93–99; BMI 15.3
[2020-05-09] MEDS: Acetaminophen 325 MG Tablet 650 MG PO ×4 (01:41→18:07)
[2020-05-09] MEDS: oxyCODONE 5 MG Tablet PO ×3 (01:41→22:59)
[2020-05-09] MEDS: Cefazolin 1 GM/50 ML BAG IV (05:21)
[2020-05-09] MEDS: 0.9% Normal Saline 1,000 ML 100 ML IV (06:45)
[2020-05-09 09:50] LABS: Absolute Lymphocyte Count 1.12 X10^3/uL (0.83-4.51); Absolute Neutrophil Count 4.1 X10^3/uL (2.0-7.7); Eosinophil# 0.03 X10^3/uL; Eosinophils% 0.5 % (0-5); Hematocrit 25.9 % (37-47); Hemoglobin 8.7 g/dL (12.0-15.0); Lymphocyte # 1.12 X10^3/ul (4.0); Lymphocyte % 18.5 % (19-41); Mean Corp Hgb Conc 33.6 g/dL (32-36); Mean Corpuscular Hgb 33.2 pg (27.0-32.0); Mean Corpuscular Volume 98.9 fL (81-99); Mean Platelet Vol. 11.9 fl (6.2-12.0); Monocyte# 0.75 X10^3/uL; Monocyte% 12.4 % (0-10); NRBC Flagged by Analyzer 0 % (0-5); Neutrophil # 4.11 X10^3/uL (2.7-7.7); Neutrophil % 67.9 % (47-70); POSITIVE COUNT YES; POSITIVE MORPHOLOGY YES; Platelet Count 87 K/mm3 (150-450); RBC Distribution Width CV 20.8 % (11.6-14.6); RBC Distribution Width SD 75.2 fl (35.1-43.9); Red Blood Count 2.62 M/mm3 (4.2-5.4); White Blood Count 6.1 K/mm3 (4.4-11.0)
[2020-05-09 09:51] LABS: Differential Indicated SCAN CRITERIA MET
--- NOTE | 2020-05-09 10:00 | NT.THERAPY_ITS ---
Nutrition Therapy Report - History Nutrition Services has been consulted to:: Manage nutrient details of diet order Current diet / nutrition support order:: Regular diet. 240ml leah ensure enlive TID w/ meals. orange magic cup BID w/ lunch and dinner - Anthropometric Measurements Height:: 5 ft 1 in Weight:: 36.7 kg Body Mass Index (BMI):: 15.3 - Relevant Labs Relevant Labs:: WBC 15.0 K/mm3 (4.4-11.0) H 05/07/20 22:55 RBC 2.62 M/mm3 (4.2-5.4) L 05/09/20 09:40 Hgb 8.7 g/dL (12.0-15.0) L 05/09/20 09:40 Hct 25.9 % (37-47) L 05/09/20 09:40 MCV 109.3 fL (81-99) H 05/08/20 03:14 MCH 33.2 pg (27.0-32.0) H 05/09/20 09:40 RDW Std Deviation 75.2 fl (35.1-43.9) H 05/09/20 09:40 RDW Coeff of Alana 20.8 % (11.6-14.6) H 05/09/20 09:40 Plt Count 87 K/mm3 (150-450) L 05/09/20 09:40 MPV 12.1 fl (6.2-12.0) H 05/07/20 22:55 Neut % (Auto) 74.6 % (47-70) H 05/08/20 03:14 Lymph % (Auto) 18.5 % (19-41) L 05/09/20 09:40 [place] % (Auto) 12.4 % (0-10) H 05/09/20 09:40 Absolute Neuts (auto) 12.1 X10^3/uL (2.0-7.7) H 05/07/20 22:55 PT 16.7 SECONDS (11.7-14.9) H 05/08/20 03:14 APTT 23.2 Seconds (24.1-36.2) L 05/07/20 22:55 Sodium 128 mmol/L (136-145) L 05/08/20 03:14 Chloride 96 mmol/L (98-107) L 05/08/20 03:14 Carbon Dioxide 15.0 mmol/L (21.0-32.0) L 05/07/20 22:55 Anion Gap 17 (5-15) H 05/07/20 22:55 BUN 5 mg/dL (7-18) L 05/08/20 03:14 Creatinine 0.51 mg/dL (0.55-1.02) L 05/08/20 03:14 BUN/Creatinine Ratio 9.8 RATIO (10-20) L 05/08/20 03:14 Glucose 118 mg/dL (74-106) H 05/07/20 22:55 Calcium 8.1 mg/dL (8.5-10.1) L 05/08/20 03:14 - Assessment Food / Nutrition-Related History:: Pt reports losing her and sister in the past year and does not feel like eating. Denies difficulty chewing/swallowing but, admits to ongoing poor appetite I want to eat but, I just don't feel like it. Pt reports appt to see a doctor regarding this problem and first appointment was supposed to be today. Pt reports UBW~100 lbs; calculated ~19% wt loss x past 12-14 months along with ongoing poor appetite and +NFPA with muscle and fat wasting in the face, clavicle, legs, arms and upper body. Pt meets criteria for severe pro/ruperto malnutrition and at risk for continued wt loss if intake does not improve at meals. Pt only took liquids from breakfast tray and sipping on leah ensure enlive currently. Appetite and intake remains overall poor at meals. - Nutrition Diagnosis Problem / Etiology / Signs & Symptoms (PES):: Severe protein/calorie malnut rition related to social circumstance (loss of spouse and sister in the past year as evidenced by ~19% wt loss x 12-14 months, consuming less than 50% estimated nutrition needs x past 6 months and +NFPA with muscle and fat wasting in the face, clavicle, legs, arms and upper body. Evidence of Malnutrition Exists:: Yes Severe PCM:: Social & Environmental circumstances - Nutrition Intervention Nutrition Prescription:: Estimated nutrition needs for repletion~8924-3555 kcal (30 kcal/Kg + 300 kcal for wt gain) and ~50-60 gm pro (1.5 gm pro/Kg) per day. Estimated fluid needs~3840-3086 ml/day (38 ml/Kg). - Food / Nutrient Delivery Interventions Summary of nutrition intervention:: Encouraged improved intake at meals--regular diet and will continue 240ml leah ensure enlive TID w/ meals (1050kcal/60 gm pro); will also offer magic cup BID w/ lunch and dinner (580 kcal/18gm pro). If PO remains poor and wt continue to decline, may need to consider enteral nutrition support. Nutrition education provided?: Yes - MNT Monitoring Further MNT monitoring and evaluation required?: Yes MNT Follow-up in:: 3-5 days
[2020-05-09 10:10] LABS: Anion Gap 5 (5-15); BUN 7 mg/dL (7-18); BUN/Creat Ratio 12.1 RATIO (10-20); Calcium,Total 7.5 mg/dL (8.5-10.1); Chloride 103 mmol/L (98-107); Creatinine, Serum 0.58 mg/dL (0.55-1.02); EST Glomerular Filtration Rate 111 mL/min (>60); Est Glom Filt Rate - Afr Amer 134 mL/min (>60); Estimated Creatinine Clearance 32.06 ml/min; Glucose 109 mg/dL (74-106); Potassium 3.9 mmol/L (3.5-5.1); Sodium Level 130 mmol/L (136-145)
[2020-05-09 10:47] LABS: Anisocytosis 1+; Platelet Estimate MOD DEC (ADEQ)
--- NOTE | 2020-05-09 11:06 | CASEMGMT ---
Social Work Note SW received update that pt is agreeable to [facility]. SW placed a call to Isis with [facility] and provided referral. SW in to speak with pt. SW introduced self and role at [facility]. Pt states if you think I can go home, then I prefer to return home. SW informed pt that PT/OT will work with pt and make recommendations. Pt states if she is not able to return home, she would like [facility]. Patient was provided a list of IRF providers including quality and resource use data and consistent with the patient?s preferred geographic region, medical needs, and insurance network. If placement is needed, pt's preferred provider is [facility]. SW spoke with pt regarding consult for Grief/Loss/Bereavement. Pt loss spouse and health has been gradually declining since then. Pt confirms that her spouse in 2019. Pt states her had cancer. Pt states her was on [facility]. SW asked pt if [facility] Mentioned their bereavement services. Pt states they did offer it, but pt declined. Pt states it is hard to open up to people. Pt states they were for 30 years and her was her best friend. SW offered support. SW asked pt if she has been in any another counseling and pt denied. Pt states that her sister also just about three months ago. Pt states her sister unexpectedly due to a heart attack. Supports: Pt states she has a son and granddaughter that live close and they are good support for her. Mental Health Hx: Pt states she has history of anxiety, denied depression. Pt states she used to be on medications for anxiety but denied currently being on any. Pt states her PCP mentioned that her anxiety may be related to her loss in appetite and weight loss. SW asked pt about depression symptoms. Pt states she has had decreased motivation, has been sleeping more than usual, and eating less than usual. Pt states her son and granddaughter want to do things with her and she doesn't have the energy to do that. Pt denied any history of suicidal thoughts/plans/ideations. Pt denied any current suicidal thoughts/plans/ideations. Coping Skills: Pt states she likes to do crossword puzzles and clean her house. Pt states cleaning keeps her busy . Pt states she also has a dog at home. Pt states her son is watching her dog while she is at [facility]. SW provided pt with bereavement and counseling resources. SW informed pt that PT/OT will work with pt and then make recommendations on discharge plans. Pt states understanding. Pt denied additional needs or concerns at this time. Plan: [facility] vs Home Natalie Linda MSW, GENERAL ACCOUNTANT
[2020-05-09] MEDS: 0.9% Normal Saline 1,000 ML 999 ML IV (12:45)
--- NOTE | 2020-05-09 12:51 | PN.ORTHO_ITS ---
Patient Problems: Active and Suspected Problems Closed left hip fracture (Acute) Hyponatremia (Acute) Subjective: Patient sitting up in bed eating lunch. Patient states her pain is been very well managed. Patient states she has not gotten out of bed with therapy yet today. Patient is anxious to begin ambulating. Patient is very agreeable to go to for floor rehab for additional postoperative therapy. Patient denies chest pain, shortness of breath, calf pain, nausea vomiting. Patient this time has no other complaints. Objective: Exam I found patient sitting comfortably in her bed. Patient is no respiratory distress, speaking in full sentences. Dressing is clean dry intact. Negative signs or symptoms of DVT. Vital signs and labs reviewed noted in the medical record. Patient is afebrile. Patient is neurovascular otherwise intact. - Physical Exam Vitals/I&O's: Vital Signs Temp Pulse Resp BP Pulse Ox 95.8 F L 76 16 118/63 95 05/09/20 12:06 05/09/20 12:06 05/09/20 12:06 05/09/20 12:06 05/09/20 12:06 Oxygen Flow Rate (L/min) 2 Oxygen Delivery Method Room Air Weight: 36.7 kg Body Mass Index (BMI) 15.3 Intake and Output for Last 24 Hours 05/07/20 05/08/20 05/09/20 23:59 23:59 23:59 Intake Total 3279.58 / 3279.58 2066.67 / 2066.67 Output Total 425 / 425 Balance 3279.58 / 3279.58 1641.67 / 1641.67 General: Alert, Oriented x3, Cooperative HEENT: PERRLA Oral: Moist Mucosa Skin: No rashes Neurological: Cranial nerves II-XII grossly intact Psych/Mental Status: Normal Affect, Alert and oriented to time, place, person, mood and affect Microbiology Past 72 Hours 05/08/20 00:05 Mucosa - Nose SARS-CoV-2 Antigen (Rapid) - Final Laboratory Results 05/08/20 12:10: Hgb 13.2, Hct 39.1 05/09/20 09:40: WBC 6.1, RBC 2.62 L, Hgb 8.7 L, Hct 25.9 L, MCV 98.9 D, MCH 33.2 H, MCHC 33.6, RDW Std Deviation 75.2 H, RDW Coeff of Alana 20.8 H, Plt Count 87 L, MPV 11.9, Immature Gran % (Auto) 0.700, Neut % (Auto) 67.9, Lymph % (Auto) 18.5 L, [place] % (Auto) 12.4 H, Eos % (Auto) 0.5, Baso % (Auto) 0.0, Absolute Neuts (auto) 4.1, Absolute Lymphs (auto) 1.12, Nucleated RBC % 0, Platelet Estimate MOD DEC, Anisocytosis 1+ 05/09/20 09:40: Sodium 130 L, Potassium 3.9, Chloride 103, Carbon Dioxide 22.0, Anion Gap 5, BUN 7, Creatinine 0.58, Estim Creat Clear Calc 32.06, Est GFR (MDRD) Af Amer 134, Est GFR (MDRD) Non-Af 111, BUN/Creatinine Ratio 12.1, Glucose 109 H, Calcium 7.5 L Current Medications Acetaminophen (Acetaminophen 325 Mg Tablet) 650 mg PO Q4H PRN PRN PRN Reason: fever, pain 1-10 Last Admin: 05/09/20 07:39 Dose: 650 mg Documented by: Sodium Chloride () 1,000 mls @ 125 mls/hr IV .Q8H KOFFI Last Infusion: 05/09/20 12:46 Dose: 0 mls/hr Documented by: Sodium Chloride () 250 mls @ 15 mls/hr IV .[id number] PRN PRN Reason: Saline Flush Sodium Chloride () 500 mls @ 15 mls/hr IV PRN PRN PRN Reason: Blood Transfusion Last Infusion: 05/08/20 10:48 Dose: Infused Documented by: Sodium Chloride () 1,000 mls @ 999 mls/hr IV .Q1H1M ONE Stop: 05/09/20 13:25 Last Admin: 05/09/20 12:45 Dose: 999 mls/hr Documented by: Morphine Sulfate (Morphine 4 Mg/Ml Syringe) 4 mg IV Q3H PRN PRN PRN Reason: Pain Score 6-10 Last Admin: 05/08/20 21:19 Dose: 4 mg Documented by: Ondansetron HCl (Ondansetron 4 Mg/2 Ml Vial) 4 mg IV Q8H PRN PRN PRN Reason: NAUSEA/VOMITING Last Admin: 05/08/20 21:19 Dose: 4 mg Documented by: Oxycodone HCl (Oxycodone 5 Mg Tablet) 5 mg PO Q4H PRN PRN PRN Reason: Pain Score 6-10 Last Admin: 05/09/20 01:41 Dose: 5 mg Documented by: Sodium Chloride (0.9% Saline Lock 10 Ml Syringe) 10 - 40 ml IV UD PRN PRN Reason: SALINE FLUSH Last Admin: 05/08/20 21:19 Dose: 10 ml Documented by: Medical Necessity - Tobacco Use Smoking Status: Current every day smoker Tobacco Use: Cigarettes Assessment/Plan All Active Problems Closed left hip fracture (Acute) Hyponatremia (Acute) Impression; status post open reduction internal fixation of a left hip intertrochanteric fracture/stable Chronic anemia\stable Plan 1. Continue all pain medications as prescribed 2. Begin physical therapy, weight-bear as tolerated with walker. 3. Continue postop anticoagulation for postop DVT prophylaxis as directed by medicine 4. Encourage incentive spirometry 5. Continue ice applied to the left hip 6. Medicine will continue to medically manage 7. Patient is orthopedically stable, can be discharged and admitted to [facility] for for rehab when cleared with medicine. 8. Patient can shower on 05/12/2020 9. [place] to be removed on 05/21/2020 10. Patient to follow up with Dr. Ye in 2 weeks. Patient is to call office for appointment. Phone number [phone]
[2020-05-09] MEDS: Ondansetron 4 MG/2 ML Vial IV (13:55)
--- NOTE | 2020-05-09 16:21 | CASEMGMT ---
Social Work Note SW received message from Isis with [facility] stating [facility] is able to accept pt. SW reviewed chart, no PT/OT available at this time. SW to follow up with pt tomorrow. Natalie Linda PANTS CUTTER, POSTAL TRANSPORTATION CLERK
[2020-05-09 16:56] LABS: Hematocrit 23.8 % (37-47); Hemoglobin 7.5 g/dL (12.0-15.0)
--- NOTE | 2020-05-09 17:09 | PN_ITS ---
Patient Problems: Active and Suspected Problems Closed left hip fracture (Acute) Hyponatremia (Acute) Subjective: Patient was seen and examined today, her urine output has been low today and I have given the patient fluid boluses and increased her IV rate. Patient's platelet count was also low today as was her hemoglobin, at the time of this dictation, I have ordered a stat H&H to recheck her hemoglobin today due to her blood pressure being low this afternoon. Patient has decided she would like to go into a rehab facility for short-term rehab rather than go home directly from the hospital. - Physical Exam Vitals/I&O's: Vital Signs Temp Pulse Resp BP Pulse Ox 97.7 F L 90 18 98/69 98 05/09/20 16:03 05/09/20 16:13 05/09/20 16:03 05/09/20 16:13 05/09/20 16:03 Oxygen Flow Rate (L/min) 2 Oxygen Delivery Method Room Air Weight: 36.7 kg Body Mass Index (BMI) 15.3 Intake and Output for Last 24 Hours 05/07/20 05/08/20 05/09/20 23:59 23:59 23:59 Intake Total 3279.58 / 3279.58 3066.67 / 3066.67 Output Total 900 / 900 Balance 3279.58 / 3279.58 2166.67 / 2166.67 General: Alert, Oriented x3, Cooperative, No apparent distress, Well developed HEENT: Atraumatic, PERRLA, EOMI, Normocephalic Oral: Moist Mucosa Neck: Supple, No JVD, Trachea Midline, Thyroid Normal Size and Texture Lungs: Clear to auscultation, Normal air movement, No rhonchi, No wheeze, No rales Cardiovascular: Regular rate, Regular Rhythm, Normal S1, Normal S2, No murmurs, PMI Normal, No rub noted Abdomen: Bowel Sounds Present, Soft, Non Tender, Non-Distended Extremities: No clubbing, No cyanosis, Capillary Refill Less than 3 Seconds Skin: No rashes, No breakdown Neurological: Cranial nerves II-XII grossly intact, Neuro grossly intact, Sensory exam intact to light touch and pain, Coordination normal Psych/Mental Status: Normal Affect, Appropriate, Alert and oriented to time, place, person, mood and affect Microbiology Past 72 Hours 05/08/20 00:05 Mucosa - Nose SARS-CoV-2 Antigen (Rapid) - Final Laboratory Results 05/09/20 09:40: WBC 6.1, RBC 2.62 L, Hgb 8.7 L, Hct 25.9 L, MCV 98.9 D, MCH 33.2 H, MCHC 33.6, RDW Std Deviation 75.2 H, RDW Coeff of Alana 20.8 H, Plt Count 87 L, MPV 11.9, Immature Gran % (Auto) 0.700, Neut % (Auto) 67.9, Lymph % (Auto) 18.5 L, [place] % (Auto) 12.4 H, Eos % (Auto) 0.5, Baso % (Auto) 0.0, Absolute Neuts (auto) 4.1, Absolute Lymphs (auto) 1.12, Nucleated RBC % 0, Platelet Estimate MOD DEC, Anisocytosis 1+ 05/09/20 09:40: Sodium 130 L, Potassium 3.9, Chloride 103, Carbon Dioxide 22.0, Anion Gap 5, BUN 7, Creatinine 0.58, Estim Creat Clear Calc 32.06, Est GFR (MDRD) Af Amer 134, Est GFR (MDRD) Non-Af 111, BUN/Creatinine Ratio 12.1, Glucose 109 H, Calcium 7.5 L 05/09/20 16:47: Hgb 7.5 L, Hct 23.8 L Current Medications Acetaminophen (Acetaminophen 325 Mg Tablet) 650 mg PO Q4H PRN PRN PRN Reason: fever, pain 1-10 Last Admin: 05/09/20 13:55 Dose: 650 mg Documented by: Sodium Chloride () 1,000 mls @ 125 mls/hr IV .Q8H KOFFI Last Infusion: 05/09/20 13:47 Dose: 125 mls/hr Documented by: Sodium Chloride () 250 mls @ 15 mls/hr IV .[id number] PRN PRN Reason: Saline Flush Sodium Chloride () 500 mls @ 15 mls/hr IV PRN PRN PRN Reason: Blood Transfusion Last Infusion: 05/08/20 10:48 Dose: Infused Documented by: Morphine Sulfate (Morphine 4 Mg/Ml Syringe) 4 mg IV Q3H PRN PRN PRN Reason: Pain Score 6-10 Last Admin: 05/08/20 21:19 Dose: 4 mg Documented by: Ondansetron HCl (Ondansetron 4 Mg/2 Ml Vial) 4 mg IV Q8H PRN PRN PRN Reason: NAUSEA/VOMITING Last Admin: 05/09/20 13:55 Dose: 4 mg Documented by: Oxycodone HCl (Oxycodone 5 Mg Tablet) 5 mg PO Q4H PRN PRN PRN Reason: Pain Score 6-10 Last Admin: 05/09/20 13:55 Dose: 5 mg Documented by: Polyethylene Glycol (Polyethylene Glycol 3350 17 Gm Packet) 17 gm PO DAILY KOFFI Sodium Chloride (0.9% Saline Lock 10 Ml Syringe) 10 - 40 ml IV UD PRN PRN Reason: SALINE FLUSH Last Admin: 05/08/20 21:19 Dose: 10 ml Documented by: Medical Necessity - Tobacco Use Smoking Status: Current every day smoker Tobacco Use: Cigarettes Assessment/Plan All Active Problems Closed left hip fracture (Acute) Hyponatremia (Acute) #1 left intertrochanteric hip fracture secondary to osteoporosis-postop day #1 insertion of the left cephalic medullary nail-PT and OT will continue, anticipate short-term placement in a rehab facility at the time of discharge from the hospital #2 acute on chronic anemia-etiology unclear, patient's repeat H&H this afternoon showed a hemoglobin of 7.5, I will transfuse the patient 2 units of packed red blood cells #3 probable COPD #4 osteoporosis #5 thrombocytopenia-etiology unclear, I will recheck the patient's CBC tomorrow Inpatient E&M: 94856 Subs Hosp L2
[2020-05-09] MEDS: Pantoprazole Sodium 40 MG Tablet PO (18:08)
[2020-05-09] MEDS: Polyethylene Glycol 3350 17 GM PACKET PO (20:52)
[2020-05-09] MEDS: Mirtazapine 15 MG Tablet PO (20:52)
[2020-05-10] VITALS (8 sets, daily range): BP systolic 123–164; BP diastolic 72–103; PULSE 78–103; RESP 16–18; TEMP 36.6–37; O2SAT 94–98
[2020-05-10] MEDS: 0.9% Normal Saline 1,000 ML 125 ML IV ×2 (00:19→08:48)
[2020-05-10 05:49] LABS: Absolute Lymphocyte Count 1.39 X10^3/uL (0.83-4.51); Basophil# 0.03 X10^3/uL; Basophil% 0.5 % (0-1); Eosinophils% 1.6 % (0-5); Hematocrit 40.6 % (37-47); Lymphocyte # 1.39 X10^3/ul (4.0); Lymphocyte % 22.5 % (19-41); Mean Corp Hgb Conc 34.5 g/dL (32-36); Mean Corpuscular Hgb 32.3 pg (27.0-32.0); Mean Corpuscular Volume 93.8 fL (81-99); Mean Platelet Vol. 12.5 fl (6.2-12.0); Monocyte# 0.59 X10^3/uL; Monocyte% 9.5 % (0-10); NRBC Flagged by Analyzer 0 % (0-5); Neutrophil # 4.03 X10^3/uL (2.7-7.7); Neutrophil % 65.3 % (47-70); POSITIVE COUNT YES; Platelet Count 61 K/mm3 (150-450); RBC Distribution Width CV 18.6 % (11.6-14.6); RBC Distribution Width SD 61.4 fl (35.1-43.9); Red Blood Count 4.33 M/mm3 (4.2-5.4); White Blood Count 6.2 K/mm3 (4.4-11.0)
[2020-05-10 06:08] LABS: Anion Gap 6 (5-15); BUN 7 mg/dL (7-18); BUN/Creat Ratio 16.2 RATIO (10-20); Calcium,Total 7.6 mg/dL (8.5-10.1); Chloride 110 mmol/L (98-107); Creatinine, Serum 0.43 mg/dL (0.55-1.02); EST Glomerular Filtration Rate 155 mL/min (>60); Est Glom Filt Rate - Afr Amer 188 mL/min (>60); Estimated Creatinine Clearance 32.06 ml/min; Glucose 75 mg/dL (74-106); Potassium 4.2 mmol/L (3.5-5.1); Sodium Level 132 mmol/L (136-145)
[2020-05-10] MEDS: Pantoprazole Sodium 40 MG Tablet PO (08:52)
[2020-05-10] MEDS: Calcium Carb/Vitamin D 1 TABLET Tablet PO (08:52)
[2020-05-10] MEDS: oxyCODONE 5 MG Tablet PO (09:00)
[2020-05-10] MEDS: Acetaminophen 325 MG Tablet 650 MG PO (11:50)
--- NOTE | 2020-05-10 13:32 | CASEMGMT ---
Addendum entered by Natalie Linda 05/10/20 15:38: Discharge is in for pt. SW in to speak with pt. SW updated pt that she will be discharged today. Pt states her son Sixto knew that pt would be go to [facility] but was unsure when pt would be moved. SW asked pt if this worker could call her son to update and pt gave this worker permission to do so. Pt asked this worker to tell Sixto to call his sister to update her. SW did update pt that Sixto will not be able to visit pt on [facility] due to no visitation policy. Pt states understanding. SW placed a call to pt's son Sixto and updated him pt will be moved to [facility] today. SW also informed Sixto that pt requests he call his sister to update her. Sixto states he will do so. Plan: [facility] today Original Note: Social Work Note PT/OT updated this worker that [facility] is being recommended and pt's son is wanting information on [facility]. SW in to speak with pt. Pt states she requested [facility]. SW informed pt that [facility] is able to accept pt, pt can admit whenever medically cleared. Pt also confirms that pt's son, who just left, is requesting information on [facility]. SW provided pt with [facility] information. Pt states her son will be in tomorrow or the next day to get information. SW informed pt that she will likely discharge to [facility] today, pt's son will not be able to see pt while she is on [facility]. Pt asked how she is going to get information to her son to review. SW informed pt that her son could come back today to get information or she could call her son to review information. Pt tried to call her son Sixto and no answer. SW informed pt that she could send picture of information to her son via text. Pt states I don't know how to do that. SW assisted pt with taking picture and sending picture of [facility] information to her son via text. Pt thanked this worker. Physician states pt can discharge to [facility] today. SW placed a call to Isis with [facility] and updated her. Plan: [facility] today Natalie Linda DEPARTMENT ASSISTANT, PRETZEL TWISTER
--- NOTE | 2020-05-10 15:18 | DCINST_ITS ---
- Discharge Diagnoses Current Active Problems: Current Active and Chronic Problems Closed left hip fracture (Acute) Anemia (Chronic) Hyponatremia (Acute) You will use the following diet at home:: No restrictions Your food should be the consistency of: Regular Your liquids should be the consistency of: Regular/Thin Discharge Activity: Use Walker - weight bearing as tolerated May shower in (days): 2 Additional Instructions: Remove koffi on 05/21/[address] Ye in 2 weeks Allergies/Adverse Reactions: Allergies No Known Allergies Allergy (Verified 05/07/20 21:51) Medications to take at Discharge Acetaminophen [Tylenol Tablet] 650 mg PO Q4H PRN PRN tab 05/10/20 Calcium Carb/Vitamin D [Os-Abner 500MG + D] 1 tab PO BIDCM tab 05/10/20 Mirtazapine [Remeron] 15 mg PO QHS tab 05/10/20 Oxycodone [Oxyir] 5 mg PO Q4H PRN PRN 7 Days #1 tab 05/10/20 Polyethylene Glycol 3350 [Miralax] 17 gm PO DAILY packet 05/10/20 Primary Care Physician: Yoandy Rousseau MD [Primary Care Provider] - Test Results: Test results from this visit will be discussed in further detail at your follow- up appointment, if applicable.
--- NOTE | 2020-05-10 17:06 | NURSING ---
REPORT GIVEN TO REHAB UNIT
--- NOTE | 2020-05-10 17:19 | NURSING ---
Late entry: Student documentation reviewed.
--- NOTE | 2020-05-11 17:48 | DS.PCM_ITS ---
Discharge Date and Diagnosis - Problem List Patient Problems: Active and Suspected Problems Closed left hip fracture (Acute) Hyponatremia (Acute) Date of Admission: 05/08/20 Date of Discharge: 05/10/20 - Primary Discharge Diagnosis Acute Problems: Active Problems #1 left intertrochanteric hip fracture secondary to osteoporosisl #2 acute on chronic anemia-secondary to expected blood loss from left intertrochanteric hip fracture #3 probable COPD #4 osteoporosis #5 thrombocytopenia-etiology unclear #6 severe protein and caloric malnutrition #7 hyponatremia - Secondary Discharge Diagnosis Chronic Problems: Chronic Problems Anxiety and depression (Chronic) Since her passsed away from [facility] 2019 Tobacco dependence (Chronic) Gallbladder sludge (Chronic) Renal cyst, right (Chronic) Macrocytic anemia (Chronic) Abnormal LFTs (Chronic) Emphysema lung (Chronic) With hyperinflation Fatty infiltration of liver (Chronic) Family history of breast cancer in first degree relative (Chronic) Severe protein-calorie malnutrition (Chronic) Hospital Course and Treatment Operations: - - Insertion of left cephalo medullary nail Procedures: Blood transfusion Summary of Care Provided: The patient is a 64 year old F who was seen in the emergency room at [facility] following a fall at home with complaints of left hip pain. Patient stated that she somehow tripped and fell and could not get up due to left hip pain. Work-up in the emergency room included femur x-rays of the left femur which showed a displaced intertrochanteric fracture of the femur. Labs were remarkable for a white blood cell count of 15, hemoglobin was low at 9.6, platelet count was 170,000. Sodium was low at 125. Patient was admitted to [place] [id number] and seen in consultation by orthopedic surgery, she required transfusion of a total of 4 units of packed red blood cells hospitalization and she underwent insertion of a left cephalo medullary nail to stabilize her hip fracture. Patient was seen by PT and OT, she was felt to benefit from inpatient rehab and patient agreed to this and she was accepted at the rehab unit at [facility]. On 05/10/2019, patient was seen and examined:General: Alert, Oriented x3, Cooperative, No apparent distress, Well developed HEENT: Atraumatic, PERRLA, EOMI, Normocephalic Oral: Moist Mucosa Neck: Supple, No JVD, Trachea Midline, Thyroid Normal Size and Texture Lungs: Clear to auscultation, Normal air movement, No rhonchi, No wheeze, No rales Cardiovascular: Regular rate, Regular Rhythm, Normal S1, Normal S2, No murmurs, PMI Normal, No rub noted Abdomen: Bowel Sounds Present, Soft, Non Tender, Non-Distended Extremities: No clubbing, No cyanosis, Capillary Refill Less than 3 Seconds Skin: No rashes, No breakdown Neurological: Cranial nerves II-XII grossly intact, Neuro grossly intact, Sensory exam intact to light touch and pain, Coordination normal Psych/Mental Status: Normal Affect, Appropriate, Alert and oriented to time, place, person, mood and affect Patient appears stable for discharge to the rehab unit at [facility] on 05/10/2019. Patient Problems: Active and Suspected Problems Closed left hip fracture (Acute) Hyponatremia (Acute) - Physical Exam Vitals/I&O's: Vital Signs Temp Pulse Resp BP Pulse Ox 98.0 F 103 H 16 135/92 H 97 05/10/20 15:42 05/10/20 15:42 05/10/20 15:42 05/10/20 15:42 05/10/20 15:42 Oxygen Flow Rate (L/min) 2 Oxygen Delivery Method Room Air Weight: 36.7 kg Body Mass Index (BMI) 15.3 Intake and Output for Last 24 Hours 05/09/20 05/10/20 05/11/20 23:59 23:59 23:59 Intake Total 4448.34 / 4448.34 2087.5 / 2087.5 Output Total 700 / 700 550 / 550 Balance 3748.34 / 3748.34 1537.5 / 1537.5 Discharge Activity: Use Walker - weight bearing as tolerated May shower in (days): 2 Home Medications: Medications to take at Discharge Acetaminophen [Tylenol Tablet] 650 mg PO Q4H PRN PRN tab 05/10/20 Calcium Carb/Vitamin D [Os-Abner 500MG + D] 1 tab PO BIDCM 05/10/20 Mirtazapine [Remeron] 15 mg PO QHS 05/10/20 Oxycodone [Oxyir] 5 mg PO Q4H PRN PRN 7 Days #14 tab 05/10/20 Following Prescriptions Were Given to Patient: Oxycodone [Oxyir] 5 mg PO Q4H PRN PRN 7 Days #14 tab PRN Reason: Pain Score 1-10 Prescription Printed Primary Care Physician: Yoandy Rousseau MD [Primary Care Provider] - Disposition: Inpt Rehab Unit/Facility Minutes spent on discharge:: 33 Patient Condition:: Stable Medical Necessity - Tobacco Use Smoking Status: Current every day smoker Tobacco Use: Cigarettes Meaningful Use Info Meaningful Use Diagnoses (Choose all that apply): None applicable Inpatient E&M: 02559 Disch Hosp
== END 2020-05-10 16:05 | DRG 480 ==
LOC: ED 22:28 → MS3 23:58
PROVIDERS: Orthopaedic Surgery; Specialist; Admitting Provider Family Medicine; Emergency Provider Emergency Medicine; PCP Family Medicine; Visit Provider Internal Medicine
PROC: 0QS704Z Reposition Left Upper Femur with Internal Fixation Device, Open Approach (ICD-10-PCS; CPT 27245; principal; 2020-05-08 13:30)
DX: M80.052A Age-related osteoporosis with current pathological fracture, left femur, initial encounter for fracture (principal); E43 Unspecified severe protein-calorie malnutrition; E87.1 Hypo-osmolality and hyponatremia; Z68.1 Body mass index [BMI] 19.9 or less, adult; K62.5 Hemorrhage of anus and rectum; W01.0XXA Fall on same level from slipping, tripping and stumbling without subsequent striking against object, initial encounter; Y93.01 Activity, walking, marching and hiking; Y92.9 Unspecified place or not applicable; D69.6 Thrombocytopenia, unspecified; F17.210 Nicotine dependence, cigarettes, uncomplicated; J44.9 Chronic obstructive pulmonary disease, unspecified; D64.9 Anemia, unspecified; N28.1 Cyst of kidney, acquired; K76.0 Fatty (change of) liver, not elsewhere classified; Z78.0 Asymptomatic menopausal state
CPT/HCPCS: 36415; 71045; 72170; 73502; 73552; 76000; 80048; 80053; 85014; 85018; 85025; 85610; 85730; 86850; 86900; 86901; 86920; 86922; 87426; 93005; 97162; 97166; 97802; 99285; 99406; C1713; C1776; J7030; J7040; J7120; P9016; A4216; J2405

== ENCOUNTER 2020-05-10 16:30 | Inpatient (IN) | payer MEDICARE, OTHER, SELFPAY ==
[2020-05-09 10:05] VITALS: BMI 15.3
[2020-05-10 17:08] VITALS: BP 136/87; PULSE 96; RESP 16; TEMP 36.2; O2SAT 96; BMI 15.3
--- NOTE | 2020-05-10 17:18 | HP.PCM_ITS ---
Problem List (1) Anxiety and depression Status: Chronic Comment: Since her passsed away from esophageal CA 2019 (2) Hematochezia Status: Acute (3) Tobacco dependence Status: Chronic (4) Gallbladder sludge Status: Chronic (5) Renal cyst, right Status: Chronic (6) Macrocytic anemia Status: Chronic (7) Metabolic acidosis Status: Acute (8) Hypocalcemia Status: Acute (9) Abnormal LFTs Status: Chronic (10) Emphysema lung Status: Chronic Qualifiers: Emphysema type: unspecified Qualified Code(s): J43.9 - Emphysema, unspecified Comment: With hyperinflation (11) Coronary artery calcification of [place] artery Status: Acute (12) Fatty infiltration of liver Status: Chronic (13) Closed left hip fracture Status: Acute Qualifiers: Encounter type: subsequent encounter (14) Hyponatremia Status: Acute (15) Family history of breast cancer in first degree relative Status: Chronic (16) Severe protein-calorie malnutrition Status: Chronic (17) Hypophosphatemia Status: Acute (18) Ketonuria Status: Acute History of Present Illness Date of Admission: 05/10/20 Chief Complaint: Physical debility secondary to recent left hip fracture sustained in a fall with placement of cephalomedullary nail on 05/08/2020. The patient is a 64 year old F with a past medical history of anxiety/depression, tobacco dependence, right renal cyst, gallbladder sludge, abnormal LFTs and hematochezia who feel onto her left hip on 05/08/20 (she does not know what happened) and sustained a severely displaced left intertrochanteric hip fracture. She underwent ORIF with placement of a cephalomedullary nail on 05/08/[address] Kyaw Ye. She was transferred to the acute inpatient rehab unit at [facility] on 05/09/2020 for greater than 3 hours of therapy daily to restore her at or near her prior level of function. She is a pt of Dr. Rousseau and she presented to him in February of 2020 with a complaint of bloody loose stool. The stool was actually semiformed and the blood was bright red and in the toilet water and on the stool. She denies any history of hemorrhoids. She denies constipation and denies any problem with diarrhea prior to that. He has never had a colonoscopy. There is no family history of colon cancer. Her hemoglobin in February was 12.2. At presentation to the hospital on 05/07/2020 her hemoglobin was 10.9. She had macrocytic indices with a MCV of 112.5. Recent TSH is normal. B12 was normal. She did not have a reticulocyte count or a folate. A ferritin was done and was within normal limits however she did not have a serum iron, TIBC or percent iron saturation done. She had to be transfused with 4 units of PRBC's in the hospital. Other significant lab included a low serum bicarb at 20 at admission which subsequently dropped to 15. It went back up to within normal limits however today it is once again low at 16. Sodium has been low since February and today is 132. Anion gap today is within normal limits. The BUN is 7 and the creatinine is 0.43. GGTP is markedly elevated in March at 240 and the AST is also elevated at 73. The alkaline phosphatase at presentation to the hospital was 343 and it was also elevated in February at 290 and that was prior to the fracture. She had a recent ultrasound of the abdomen which showed a normal pancreas, gallbladder with sludge but no stones and fatty infiltration of the liver. Review of her lipid panel shows normal triglycerides and a normal LDL with an HDL of 61. She had a screening CT scan of the chest in February 2020 that showed emphysematous changes and scarring in the apices. She has never had a DEXA. Her father of emphysema.....he was a smoker. Past Medical History Past Medical History (Chronic Problems): Chronic Problems Anxiety and depression (Chronic) Since her passsed away from [facility] 2019 Tobacco dependence (Chronic) Gallbladder sludge (Chronic) Renal cyst, right (Chronic) Macrocytic anemia (Chronic) Abnormal LFTs (Chronic) Emphysema lung (Chronic) With hyperinflation Fatty infiltration of liver (Chronic) Family history of breast cancer in first degree relative (Chronic) Severe protein-calorie malnutrition (Chronic) Allergies No Known Allergies Allergy (Verified 05/07/20 21:51) Home Medications: Ambulatory Orders Medication Instructions Recorded Acetaminophen [Tylenol Tablet] 650 mg PO Q4H PRN PRN tab 05/10/20 Calcium Carb/Vitamin D [Os-Abner 1 tab PO BIDCM 05/10/20 500MG + D] Mirtazapine [Remeron] 15 mg PO QHS 05/10/20 Oxycodone [Oxyir] 5 mg PO Q4H PRN PRN 7 Days #14 tab 05/10/20 Surgical History: - - ORIF of left hip fracture on 05/08/[address] Kyaw Ye with placement of a cephalomedullary nail. Psychiatric History: Anxiety, Depression HEAD OF IT History: No pertinent HEAD OF IT history, - - She tells me she has not had a Pap smear in 5 years but she has no history of abnormal Pap smears. Lives: Alone - Her 1 year ago of esophageal cancer. Smoking Status: Current every day smoker - 1 pack/day for 14 years Tobacco Use: Cigarettes Alcohol: Occasional - She has been drinking approximately one sixpack a week to help her sleep. Drugs: None - *Family History Maternal History Items: - Paternal History Items: COPD Sibling History Items: Cancer - Sister of breast cancer approximately 1 to 2 months aftercynthia's ., Heart Disease - Her brother had bypass surgery. Review of Systems Constitutional: Reports: Anorexia - she has lost about 20 lbs in the past year.......she feels hungry but when the food comes she looks at eat and does not eat it., Weight Change. Denies: Chills, Fever Eyes: Denies: Double vision, Vision Change HEENT: Denies: Difficulty Hearing, Difficulty Swallowing, Head Aches, Nasal Congestion, Sinus Congestion, Sinus Drainage, Sore Throat Cardiovascular: Denies: Chest Pain, Edema, Light Headedness, Palpitations, Syncope Respiratory: Reports: Cough - in the AM - attributes this to smoking. Denies: Hemoptysis, Shortness of Breath, Shortness of breath at rest, Shortness of breath upon exertion, Sputum production, Wheezing Gastrointestinal: Reports: Hematochezia. Denies: Abdominal Pain, Constipation, Dyspepsia, Nausea, Vomiting Genitourinary: Denies: Dysuria, Hematuria, Incontinence Gynecological: Reports: - - She went through menopause at approximately 43 years of age. She denies any vaginal bleeding.. Denies: Breast symptoms - Her last mammogram was approximately 5 years ago and she states that it was normal., Vaginal bleeding, Vaginal discharge Musculoskeletal: Reports: Joint Tenderness - Left hip secondary to recent fracture and ORIF. Denies: Joint Pain, Neck Pain Skin: Reports: Dryness. Denies: Jaundice, Rash, Wounds Neurological: Denies: Balance problems, Change in Speech, Slurred speech, Confusion, Focal weakness, Headaches, Numbness, Tingling, Tremor, Seizures Psychiatric: Reports: Anxiety, Depression. Denies: Homicidal Ideations, Suicidal Ideations Endocrine: Denies: Heat/ Cold Intolerance, Hx of Thyroiditis Hematologic/ Lymphatic: Denies: Easy Bruising, Easy Bleeding, Hx of blood clot VTE Information - Inpt Only VTE Present on Admission: No VTE Mechan Device Prophylaxis: SCD's, Knee High ARIN Hose VTE Pharm Prophylaxis ordered?: No Reason prophylaxis not ordered:: Medical Contraindication - thrombocytopenia Patient Problems: Active and Suspected Problems Closed left hip fracture (Acute) Hyponatremia (Acute) Hematochezia (Acute) Metabolic acidosis (Acute) Hypocalcemia (Acute) Coronary artery calcification of pen[place] artery (Acute) - Physical Exam Vitals/I&O's: Weight: 80 lb 14.554 oz Body Mass Index (BMI) 15.3 General: Alert, Oriented x3, Cooperative, No apparent distress, Well developed, - - Appears older than her stated age. She has some muscle wasting. HEENT: Atraumatic, PERRLA, EOMI, Normocephalic Oral: Moist Mucosa, No Gingival or Mucosal Lesions/ Ulcerations Neck: Supple, No JVD, Negative Carotid Bruits, No Nodes, Trachea Midline, - - Brisk carotid upstroke with good pulse volume Lungs: Clear to auscultation, No rhonchi, No wheeze, No rales, Diminished Cardiovascular: Regular rate, Regular Rhythm, Normal S1, Normal S2, No murmurs, No rub noted, No Gallop, - - having a few premature beats Abdomen: Bowel Sounds Present, Soft, Non Tender, Distended - Mild with increased Tympany, no guarding with palpation Extremities: No clubbing, No cyanosis, No edema, Capillary Refill Less than 3 Seconds, Diminished Peripheral Pulses - in the LE's Skin: No rashes, No breakdown, - - many bruises Musculoskeletal: No Tenderness to Palpation of Joints or Extremities, Arthritic Changes, Muscle Wasting Neurological: Cranial nerves II-XII grossly intact, Neuro grossly intact Psych/Mental Status: Appropriate, Flat Affect Current Medications Bisacodyl (Bisacodyl 10 Mg Suppository) 10 mg RECTAL .PRN X 1 PRN PRN Reason: Constipation Magnesium Hydroxide (Magnesium Hydroxide 30 Ml Udc) 30 ml PO .PRN X 1 PRN PRN Reason: Constipation Senna/Docusate Sodium (Senna/Docusate Sodium 1 Tablet) 2 tablet PO BID [facility] Assessment/Plan All Active Problems Closed left hip fracture (Acute) Hyponatremia (Acute) Hematochezia (Acute) Metabolic acidosis (Acute) Hypocalcemia (Acute) Coronary artery calcification of pen[place] artery (Acute) Hypophosphatemia (Acute) Ketonuria (Acute) Impressions 1. Physical debility secondary to recent left hip fracture 2. Status post ORIF of the left hip on 05/08/[address] Kyaw Ye with a cephalomedullary nail 3. Hyponatremia 4. Macrocytic anemia 5. Thrombocytopenia 6. Metabolic acidosis - due to ketosis? 7. Severe protein/calorie malnutrition 8. Inanition secondary to depression 9. Depression/anxiety - she tried Remeron for 1 month and she did not feel any better and so she did not refill the medication 10. Hematochezia 11. Fatty infiltration of the liver with abnormal LFTs 12. Emphysema noted on CT scan of the chest 13. Tobacco dependence 14. Gallbladder sludge 15. Right renal cyst 16. Calcified pen[place]ot coronary arteries with calcification in the aortic arch as well 17. Insomnia - has a lot of trouble going to sleep but once she goes to sleep she can stay asleep PLAN PT for gait stability OT for ADL's Analgesics as needed Bowel protocol Fall precautions Assess for Anxiety/Depression - has never had therapy after her 's passing. Will find out if he was on hospice and if he was suggest counselling through hospice OR if he was not on hospice will have the provided resources available to counselling GI prophylaxis not at this time.....she has no N/V/epigastric pain and the blood in the stool was bright red DVT prophylaxis with SCDs and thigh-high ARIN hose. When the thrombocytopenia resolves will start ASA 81 mg p.o. twice daily. [] Follow up with Dr. Rousseau and Dr. Ye following DC from Rehab. Follow up with Dr. Person following discharge to be evaluated for hematochezia. AM lab including CMP, CBC, Mag and Phos Start sertraline 25 mg p.o. every morning for treatment of anxiety/depression Dronabinol 2.5 mg p.o. nightly for insomnia and to stimulate appetite vitamins 1 p.o. daily Inpatient E&M: 65332 Init Hosp L3
--- NOTE | 2020-05-10 17:49 | PCM.RU.PYE ---
Admission Information Primary Diagnosis:: Physical debility secondary to recent left hip fracture and subsequent ORIF of the left hip. Status Changes from Prescreening?: No changes Identified Actual Problem List:: Falls, Skin Intergrity, Pain, ALteration in Cmfrt, Depression, Alteration in Sleep, Mobility Impaired, Self Care Deficit, Diabetes, Hypoglycemia - due to severe protein/calorie malnutrition, Fluid Change-Dehydration, Alteration-Leisure Activ. Potential Problem List:: DVT, Bleeding, Infection, UTI, Aspiration, Falls, Skin Integrity, Depression Risk of Complications DVT: ARIN Hose, Sequential Compression Device, - - heme + stools and thrombocytopenia preclude LMWH Bleeding: Monitor Lab Values, Nursing to Teach Precautions for anti-coagulation therapy., Wound, if applicable, to be assessed every shift., Stroke patients assessed for lethargy or change in status. Infection: Clinical Staff to Monitor for S/S of infection:, S/S of infection include fever, redness, warmth, etc. Urinary Tract Infection: Monitor for frequency, burning, discomfort, or incontinence., Nursing will obtain urine sample for urinalysis and C&S when ordered. Aspiration: Clinical staff will monitor for coughing, drooling, congestion., Speech will evaluate swallowing and dsyphasia., Nursing will monitor patient swallowing during meals. Falls: Patient will be evaluated for Fall Precautions, Patient will be placed on Fall Precautions as indicated per protocol. Skin Breakdown: Nursing will assess skin daily using assessment tool., Nursing will place on Skin Breakdown Precautions as indicated. Pain: Clinical staff will assess patient's pain level per protocol., Medications will be given, if needed, and the pain level reassessed., Other methods: Massage, distraction, decrease stimulus, etc. used PRN. Plan of Care Patient requires physician specializing in physical medicine and rehab oversight to provide close medical supervision of rehab issues including: Pain Management, Sleep Problems, Bowel and Bladder, Medical and co-morbidity Management, DVT prophylaxis, Rehabilitation Leadership, Coordination of treatment team Patient needs Physical Therapy: For a minimum of 1 hour, At least 5 out of 7 days Patient needs Physical Therapy to improve:: Mobility, Mobility, Mobility, Strengthening, Transfers, Stretching, ROM, Endurance, Stairs, Gait, Balance Patient needs Occupational Therapy: For a minimum of 1 hour, At least 5 out of 7 days Patient needs Occupational Therapy to improve ADL's incl.: Eating, Grooming, Bathing, Dressing, Toileting, Toilet transfers, Community Reintegration, Higher functioning activities, Household tasks, Adaptive Equipment, Splinting, Other activities as determined Patient requires 24/7 Rehabilitation Nursing for: Pain Issues, Identifying and preventing risk factors, Monitoring and reporting current medical conditions, Assisting with ambulation, transfer, and all ADL's, Teaching patients about disease process and medications, Family teaching, Providing safe environment, Bowel and Bladder Issues, Skin integrity, Medication Management Patient needs [employer]/ Case Management for: Discharge Planning, Arranging Home Equipment or Services, Family Interventions Patient needs Dietary and Nutrition Services for: Adequate Nutrition, Nutritional Supplements, Nutritional Education Goals Patient will remain: free from falls, or injury at time of discharge. Patient will perform bed mobility at: MOD I level of assist. Patient will complete transfers from bed to chair at: MOD I level of assist. Patient will ambulate: with MOD I assist, with LRD, - - 50 feet Patient will complete upper body dressing at: MOD I level of assist. Patient will complete lower body dressing at: MOD I level of assist. Patient will complete toileting at: MOD I level of assist. Patient will perform bathing at: MOD I level of assist. Patient will complete grooming at: MOD I level of assist. Patient will complete home management skills at: MOD I level of assist. Patient will achieve: at MOD I assist, - - 3 stairs Patient will have pain level of: of 3 or less Patient's skin will: remain intact, free from infection. Patient will receive: adequate nutrition. Discharge Planning Pt Prognosis for Sig. Practical Improv. w/in Reasonable Time: Good Estimated Length of stay (days): 21 - increased days required due to severe protein/calorie malnutrition, severe depression, severe deconditioning and weakness Anticipated D/C Destination: Home with Home Health Was Preadmission Assessment Accurate?: Yes
[2020-05-10 19:35] VITALS: BP 132/77; PULSE 96; RESP 18; TEMP 36.8; O2SAT 96
[2020-05-10] MEDS: Senna/Docusate Sodium 1 Tablet 2 TABLET PO (22:58)
[2020-05-10] MEDS: Mirtazapine 15 MG Tablet PO (22:58)
[2020-05-10] MEDS: Dronabinol 2.5 MG Capsule PO (22:59)
[2020-05-11 05:58] LABS: Hematocrit 33.6 % (37-47); Hemoglobin 11.1 g/dL (12.0-15.0); Mean Corpuscular Hgb 31.7 pg (27.0-32.0); Mean Platelet Vol. 11.4 fl (6.2-12.0); POSITIVE COUNT YES; POSITIVE MORPHOLOGY YES; Platelet Count 88 K/mm3 (150-450); RBC Distribution Width CV 19.2 % (11.6-14.6); RBC Distribution Width SD 65.2 fl (35.1-43.9); White Blood Count 5.6 K/mm3 (4.4-11.0)
[2020-05-11 05:59] LABS: Scan Indicated on CBC? Y/N YES- FLAGS NOTED
[2020-05-11 06:30] LABS: ALB/GLOB Ratio 0.7 RATIO (0.9-2.4); AST(SGOT) 39 U/L (15-37); Alanine Aminotransfer ALT/SGPT 26 U/L (13-56); Albumin, Serum 1.6 g/dL (3.2-5.0); Alkaline Phosphatase 179 U/L (45-117); Anion Gap 6 (5-15); BUN 6 mg/dL (7-18); BUN/Creat Ratio 27.3 RATIO (10-20); Calcium,Total 7.6 mg/dL (8.5-10.1); Chloride 110 mmol/L (98-107); Creatinine, Serum 0.22 mg/dL (0.55-1.02); EST Glomerular Filtration Rate 337 mL/min (>60); Est Glom Filt Rate - Afr Amer 408 mL/min (>60); Estimated Creatinine Clearance 32.06 ml/min; Globulin 2.2 g/dL (2.2-4.2); Glucose 69 mg/dL (74-106); Magnesium 1.8 mg/dL (1.6-2.6); Phosphorus 1.9 mg/dL (2.5-4.9); Potassium 3.7 mmol/L (3.5-5.1); Protein, Total 3.8 g/dL (6.4-8.2); Sodium Level 137 mmol/L (136-145)
[2020-05-11 06:41] LABS: Differential Comment SCANNED
[2020-05-11] MEDS: oxyCODONE 5 MG Tablet PO ×2 (06:48→21:08)
[2020-05-11 06:52] LABS: Bacteria 0 SEEN /hpf (None Seen); Mucous, Urine 0 SEEN /hpf (<or=2+); Squamous Epithelial Cells - UA 0 SEEN /hpf (5-10); White Blood Cells 0 SEEN /hpf (0-5)
[2020-05-11 06:55] LABS: Color, Urine Amber (Yellow); Glucose, Dipstick Normal (Normal); Ketone-Dipstick 15 mg/dl (Negative); Leukocyte Esterase-Dipstick 25 /ul (Negative); Nitrite-Dipstick Negative (Negative); Occult Blood-Urine 50 /ul (Negative); Protein-Dipstick 15 mg/dl (Negative); Urine Clarity Sl. Cloudy (Clear); Urine Urobilinogen 8 mg/dl (Normal)
[2020-05-11 06:56] LABS: Urine Bilirubin Dipstick 3 mg/dL (Negative)
[2020-05-11 07:03] LABS: Red Blood Cells-Urine 0-5 SEEN /hpf (0-5)
[2020-05-11 07:04] LABS: Amorphous Sediment RARE
[2020-05-11] MEDS: Sertraline 50 MG Tablet 25 MG PO (08:51)
[2020-05-11] MEDS: Calcium Carb/Vitamin D 1 TABLET Tablet PO ×2 (08:52→17:04)
[2020-05-11] MEDS: Senna/Docusate Sodium 1 Tablet 2 TABLET PO ×2 (08:52→21:15)
--- NOTE | 2020-05-11 09:31 | PCM.PN.BLA ---
Progress Note Afebrile VSS Maintaining appropriate oxygen saturation on RA Oral intake is poor Discussed with nursing - She had a small loose brown stool yesterday with no blood but it was Hemoccult positive. she asked the nurses last night about who the little girl was sitting in the corner......so far has had no further hallucinations that I know of........may have have pain medication prior to transfer to rehab Reviewed the PT/OT/ST notes Medication list reviewed. All labs personally reviewed. Hemoglobin is mildly decreased at 11.1 and the platelets are up to 88,000 from 61,000 yesterday. From cytopenia is most likely secondary to low molecular weight heparin. Blood sugar is low at 69 today. Calcium corrected for hypoalbuminemia is within normal limits. Phosphorus is low at 1.9 and magnesium is 1.8 today. AST is down to 39 and the alkaline phosphatase is down to 179. Albumin is very low at 1.6. UA yesterday was positive for ketones and protein. 0 WBCs. There was no bacteria. Hemoccult stool is positive. Serum bicarb is up to 21 today. She tells me that she slept well last night She did not eat breakfast but she tells me that she is not a morning person. she plans on eating lunch. No complaints today alert and oriented X 3 Flat affect, pleasant, appropriate Lungs - CTA anterior with good air exchange H - regular with resting tachycardia, no MM and no gallop, occasional premature beat abd - soft and NT no peripheral edema no calf tenderness incision is intact without erythema Impressions 1. Severe depression 2. Physical debility secondary to severe malnutrition coupled with recent hip fracture due to a fall 3. Hemoccult positive stool 4. Severe hypoalbuminemia 5. Metabolic acidosis secondary to starvation ketosis 6. Acute blood loss anemia 7. Tobacco dependence 8. Hypophosphatemia A PPI to her current drug regimen Supplement phosphorus Continue to encourage increased fluid intake, BUN/creatinine ratio is 27.3 today. Consider placing a corpak or TPN if she does not start eating. DC mirtazapine-it did not work for her. Continue sertraline 25 mg p.o. daily and if she is tolerating it this over the next 5 days will increase to 50 mg daily. Sign continue Marinol Will follow up with Dr. Person for endoscopy post discharge. Inpatient E&M: 12096 Subs Hosp L2
--- NOTE | 2020-05-11 09:52 | CASEMGMT ---
Social Work Met with patient for initial assessment. Discussed code status. Pt confirmed full code. Pt states son, Sixto, is HCPOA. HCPOA is not on file. Will ask son to provide at Team meeting. Dtr lives in [place]. Explained Medicare benefit and Team meeting. Pt expressed concern about going home, however, tearful about wanting to be home soon. Explained Once SW receives MC days, pt will have DC date already. SW to assist with DC planning and will explain options if pt is not ready to DC home at that time. Pt expressed relief. Discussed more depth about meals - pt cooks pasta usually. Offered MOW resources - pt agreed. Offered [employer] resources. Pt stated children were looking into getting her one already and is accepting of resources. The goal is for pt to return home alone with 2 steps to enter. Pt used no AD prior. Laundry is in basement but pt states son can assist. Son works from home doing woodcarving. Will continue to follow. Lita Lugo, UI APPLICATION DEVELOPER [employer] SWITCH ADJUSTER
[2020-05-11 10:00] VITALS: BP 135/77; PULSE 99; RESP 16; TEMP 37; O2SAT 93
[2020-05-11] MEDS: Acetaminophen 325 MG Tablet 650 MG PO (10:13)
[2020-05-11] MEDS: Pantoprazole Sodium 40 MG Tablet PO ×2 (10:31→21:10)
[2020-05-11 11:28] VITALS: O2SAT 98
[2020-05-11] MEDS: Prenatal Vits Tablet 1 TABLET PO (11:48)
--- NOTE | 2020-05-11 14:32 | PCM.NTREPORT ---
Nutrition Therapy Report - History Nutrition Services has been consulted to:: Manage nutrient details of diet order Current diet / nutrition support order:: Regular diet. 3-day calorie count in progress 05/11, 05/12, 05/13 - Anthropometric Measurements Height:: 5 ft 1 in Weight:: 36.7 kg Body Mass Index (BMI):: 15.3 - Relevant Labs Relevant Labs:: RBC 3.50 M/mm3 (4.2-5.4) L 05/11/20 05:20 Hgb 11.1 g/dL (12.0-15.0) L 05/11/20 05:20 Hct 33.6 % (37-47) L 05/11/20 05:20 RDW Std Deviation 65.2 fl (35.1-43.9) H 05/11/20 05:20 RDW Coeff of Alana 19.2 % (11.6-14.6) H 05/11/20 05:20 Plt Count 88 K/mm3 (150-450) L 05/11/20 05:20 Chloride 110 mmol/L (98-107) H 05/11/20 05:20 BUN 6 mg/dL (7-18) L 05/11/20 05:20 Creatinine 0.22 mg/dL (0.55-1.02) L 05/11/20 05:20 BUN/Creatinine Ratio 27.3 RATIO (10-20) H 05/11/20 05:20 Glucose 69 mg/dL (74-106) L 05/11/20 05:20 Calcium 7.6 mg/dL (8.5-10.1) L 05/11/20 05:20 Phosphorus 1.9 mg/dL (2.5-4.9) L 05/11/20 05:20 Total Bilirubin 2.00 mg/dL (0.20-1.00) H 05/11/20 05:20 AST 39 U/L (15-37) H 05/11/20 05:20 Alkaline Phosphatase 179 U/L (45-117) H 05/11/20 05:20 Total Protein 3.8 g/dL (6.4-8.2) L 05/11/20 05:20 Albumin 1.6 g/dL (3.2-5.0) L 05/11/20 05:20 Albumin/Globulin Ratio 0.7 RATIO (0.9-2.4) L 05/11/20 05:20 - Assessment Food / Nutrition-Related History:: Pt familiar to this RD from [facility]--UBW~100 lbs approx 1 year ago and lost her and sister in the past year. PO/mikaela have not been good--pt reports that she wants to eat but, she just has no appetite. Since admit to rehab, pt reports today that she feels as though appetite is slightly better & willing to take leah ensure and orange magic cup w/ meals--will provide as per pt request and encouraged improved intake at meals. PO/mikaela have been overall poor for 6-12 months now and reports UBW~100 lbs; calculated~19% wt loss and continued suboptimal intake at meals. +NFPA with obvious muscle and fat wasting in the face, clavicle, arms and upper body. Pt meets criteria for severe pro/ruperto malnutrition. Pt denies difficulty chewing/swallowing. Pt agreeable to ONS and will try harder to improve intake at meals as tolerated. - Nutrition Diagnosis Problem / Etiology / Signs & Symptoms (PES):: Severe pro/ruperto malnutrition in the context of social circumstance related to ongoing poor appetite and anorexia as evidenced by 19% wt loss x 1 year, BMI 15.3, poor PO at meals x past 6 months and +NFPA with muscle and fat wasting in the face, clavicle, arms and upper body. Evidence of Malnutrition Exists:: Yes Severe PCM:: Social & Environmental circumstances - Nutrition Intervention Nutrition Prescription:: Estimated nutrition needs for repletion~9331-5985 kcal (38 kcal/Kg) and ~50-60 gm protein (1.5 gm pro/kg) per day. Estimated fluid needs~2669-1565 ml/day (1ml/Kcal) - Food / Nutrient Delivery Interventions Summary of nutrition intervention:: Will provide 240ml leah ensure enlive TID w/ meals (to provide additional 1050 kcal and 60gm protein) and orange magic cup BID w/ lunch and dinner (to provide additional 580 kcal and 18 gm protein). Will continue liberalized regular diet to optimize intake at meals. 3-day calorie count in progress 05/11, 05/12, 05/13--will assess daily. Nutrition support ordered as / adjusted to:: May need to consider TF support for energy/pro repletion if PO remains suboptimal/inadequate and wt continues to decline. Nutrition education provided?: Yes - MNT Monitoring Further MNT monitoring and evaluation required?: Yes MNT Follow-up in:: 5-7 days - ruperto count follow-up Q day 05/11-05/13
[2020-05-11 14:33] VITALS: BMI 15.3
[2020-05-11 19:42] VITALS: BP 151/86; PULSE 88; RESP 16; TEMP 36.4; O2SAT 96
[2020-05-11] MEDS: Dronabinol 2.5 MG Capsule PO (21:10)
[2020-05-11] MEDS: 0.9% Saline Lock 10 ML Syringe IV (21:17)
[2020-05-12] MEDS: oxyCODONE 5 MG Tablet PO ×2 (06:01→17:45)
[2020-05-12 06:34] VITALS: O2SAT 92
[2020-05-12 07:30] VITALS: BP 150/91; PULSE 101; RESP 16; TEMP 36.6; O2SAT 95
[2020-05-12 08:01] LABS: Hematocrit 43.1 % (37-47); Hemoglobin 13.4 g/dL (12.0-15.0); Mean Corp Hgb Conc 31.1 g/dL (32-36); Mean Corpuscular Hgb 32.7 pg (27.0-32.0); Mean Corpuscular Volume 105.1 fL (81-99); POSITIVE MORPHOLOGY YES; Platelet Count 129 K/mm3 (150-450); RBC Distribution Width CV 19.5 % (11.6-14.6); RBC Distribution Width SD 72.5 fl (35.1-43.9); White Blood Count 7.6 K/mm3 (4.4-11.0)
[2020-05-12 08:04] LABS: Scan Indicated on CBC? Y/N YES- FLAGS NOTED
[2020-05-12] MEDS: Acetaminophen 325 MG Tablet 650 MG PO ×2 (08:04→20:24)
[2020-05-12] MEDS: Pantoprazole Sodium 40 MG Tablet PO ×2 (08:05→20:24)
[2020-05-12] MEDS: Calcium Carb/Vitamin D 1 TABLET Tablet PO ×2 (08:05→17:45)
[2020-05-12] MEDS: Sertraline 50 MG Tablet 25 MG PO (08:06)
[2020-05-12] MEDS: Prenatal Vits Tablet 1 TABLET PO (13:08)
[2020-05-12] MEDS: 0.9% Saline Lock 10 ML Syringe IV (17:46)
[2020-05-12 19:50] VITALS: BP 130/75; PULSE 84; RESP 18; TEMP 36.7; O2SAT 97
[2020-05-12] MEDS: Dronabinol 2.5 MG Capsule PO (20:24)
[2020-05-13] MEDS: oxyCODONE 5 MG Tablet PO ×3 (04:36→21:33)
[2020-05-13] MEDS: 0.9% Saline Lock 10 ML Syringe IV ×2 (04:39→11:12)
--- NOTE | 2020-05-13 04:45 | NURSING ---
pt rings to get up to the bsc, pt is noted to be saturated from hip dressing, staff changed bed linen, gown. pt dressing removed for a large amt of sero-sang drainage. incisions were cleansed with ns then 4 abds were applied , 2 alexa wraps were applied to hip and thigh to give some compression to the area to slow drainage and keep abds in place. polar care was then applied to the hip. rn aware
[2020-05-13 06:11] LABS: Hematocrit 35.4 % (37-47); Hemoglobin 11.5 g/dL (12.0-15.0); Mean Corp Hgb Conc 32.5 g/dL (32-36); Mean Corpuscular Hgb 32.8 pg (27.0-32.0); Mean Corpuscular Volume 100.9 fL (81-99); Mean Platelet Vol. 10.9 fl (6.2-12.0); POSITIVE MORPHOLOGY YES; Platelet Count 124 K/mm3 (150-450); RBC Distribution Width CV 18.6 % (11.6-14.6); RBC Distribution Width SD 66.4 fl (35.1-43.9); Red Blood Count 3.51 M/mm3 (4.2-5.4); White Blood Count 5.9 K/mm3 (4.4-11.0)
[2020-05-13 06:22] LABS: POSITIVE DIFFERENTIAL YES; Scan Indicated on CBC? Y/N YES- FLAGS NOTED
[2020-05-13 07:02] LABS: Differential Comment SCANNED
[2020-05-13 07:30] VITALS: BP 130/76; PULSE 92; RESP 18; TEMP 36.4; O2SAT 93
[2020-05-13] MEDS: Pantoprazole Sodium 40 MG Tablet PO ×2 (11:00→21:34)
[2020-05-13] MEDS: Prenatal Vits Tablet 1 TABLET PO (11:00)
[2020-05-13] MEDS: Calcium Carb/Vitamin D 1 TABLET Tablet PO ×2 (11:00→16:31)
[2020-05-13] MEDS: Sertraline 50 MG Tablet 25 MG PO (11:01)
[2020-05-13] MEDS: Acetaminophen 325 MG Tablet 650 MG PO ×2 (11:06→21:32)
[2020-05-13 11:24] VITALS: O2SAT 94
--- NOTE | 2020-05-13 17:29 | NURSING ---
offered to assist pt to ambulate today and pt refused. pt did sit up in chair.
[2020-05-13] MEDS: Dronabinol 2.5 MG Capsule PO (21:41)
[2020-05-13 21:59] VITALS: BP 105/64; PULSE 69; RESP 16; TEMP 36.3; O2SAT 97
[2020-05-14 06:30] VITALS: O2SAT 95
[2020-05-14 06:47] LABS: Anion Gap 5 (5-15); BUN 13 mg/dL (7-18); BUN/Creat Ratio 48.7 RATIO (10-20); Chloride 108 mmol/L (98-107); Creatinine, Serum 0.27 mg/dL (0.55-1.02); EST Glomerular Filtration Rate 270 mL/min (>60); Est Glom Filt Rate - Afr Amer 327 mL/min (>60); Estimated Creatinine Clearance 32.06 ml/min; Glucose 76 mg/dL (74-106); Phosphorus 2.3 mg/dL (2.5-4.9); Potassium 4.5 mmol/L (3.5-5.1); Sodium Level 137 mmol/L (136-145)
[2020-05-14] MEDS: Calcium Carb/Vitamin D 1 TABLET Tablet PO ×2 (08:09→16:06)
[2020-05-14] MEDS: Menthol/Lanolin/Calamine/Znox 113 GM Tube 1 APPLIC TOPICAL ×3 (08:09→22:32)
[2020-05-14] MEDS: Pantoprazole Sodium 40 MG Tablet PO ×2 (08:09→22:16)
[2020-05-14] MEDS: oxyCODONE 5 MG Tablet PO ×2 (08:09→15:16)
[2020-05-14] MEDS: Sertraline 50 MG Tablet 25 MG PO (08:10)
[2020-05-14 09:06] VITALS: BP 127/74; PULSE 99; RESP 16; TEMP 36.7; O2SAT 95
--- NOTE | 2020-05-14 11:35 | PN_ITS ---
Progress Note Doreen was seen on team rounds today. Her son Sixto participated by phone. All questions were answered. Afebrile VSS Maintaining appropriate oxygen saturation on RA Oral intake is poor I reviewed the calorie counts. On 05/11/2020 she consumed 659 ruperto and on 05/12/2020 she consumed 820 ruperto. Yesterday she had even less and tells the communication center coordinator she only wants liquids. She is roughly meeting only 58% or less of her estimated calorie needs. Discussed with nursing - There is serois frainage from the incision - more likely than not due to severe hypoalbuminemia. Reviewed the PT/OT/ST notes Medication list reviewed. All lab was personally reviewed. The hemoglobin is stable at 11.5. Platelets are 124,000. BUN is 13 with a creatinine of 0.27. Sodium and potassium are within normal limits. Phosphorus is still low at 2.3. Calcium corrected for hypoalbuminemia is within normal limits. Sixto tells us that even prior to her dying she was not eating. He wonders if there is not a problem that we are not addressing that could be causing the inanition? She has heme + stool and she was scheduled to see Dr. Person for endoscopy but fell and broke her hip prior to that appt. She tells me that she has been taking Motrin as an OP. She denies N/V/Abd pain. She was started on a PPI last week. She is alert today and even smiled a few times. She tells me that she is sleeping well at night now. Lungs - She his not tachypneic and she has no conversational dyspnea. Lungs are clear to auscultation. Breath sounds are diminished bilaterally. Heart-regular rate and rhythm, no murmurs, no gallop Abdomen-soft, no guarding with palpation, no masses palpated, unremarkable bowel sounds Having serous drainage of the incision. No purulent DC no rashes Affect is a little better today. she smiled when I said her son could visit more often because I feel it is important for emotional support. she is tearful when I talk to her about a feeding tube. She tells me that her was on hospice. She has not reached out to them for counselling. She is not opposed to talking with the SW at hospice for counselling Impressions 1. Physical debility secondary to recent left hip fracture 2. Status post ORIF of the left hip on 05/08/[address] Kyaw Ye with a cephalomedullary nail 3. Hyponatremia-resolved 4. Macrocytic anemia-more likely than not secondary to increased reticulocytes from recent acute blood loss secondary to surgery 5. Thrombocytopenia-improving with discontinuation of low molecular weight heparin. Currently on aspirin 81 mg twice daily for DVT prophylaxis 6. Metabolic acidosis -suspect secondary to ketosis. Metabolic acidosis has resolved. 7. Severe protein/calorie malnutrition 8. Inanition secondary to depression most likely however, she was taking Motrin at home and she could be suffering from PUD.....She was started on a PPI the end of last week 9. Depression/anxiety - she tried Remeron for 1 month and she did not feel any better and so she did not refill the medication and has been off this medication 10. Hematochezia - may be due to hemorrhoids but she has brown stool with no visible blood that is also heme + 11. Fatty infiltration of the liver with abnormal LFTs 12. Emphysema noted on CT scan of the chest 13. Tobacco dependence 14. Gallbladder sludge - If she continues to not eat will consider doing a HIDA scan 15. Right renal cyst 16. Calcified blackfeet coronary arteries with calcification in the aortic arch as well 17. Insomnia - resolved with the initiation of Marinol 18. Hypophosphatemia 19. Serous drainage from the incision secondary to severe hypoalbuminemia Increase dronabinol to 2.5 mg p.o. twice daily Increase sertraline to 50 mg p.o. daily Change weights to every 72 hours She will need to reschedule with Dr. Person for upper and lower endoscopy post discharge. She should have a DEXA post discharge to evaluate her bone density in light of smoking, age and severe malnutrition. Continue the phosphorus supplement HIDA if the poor appetite continues to r/o GB dysfunction as the etiology of the not eating......pain could be masked by Motrin at home and Oxycodone in the hospital. No pain when I palpate the RUQ. STROKE Vital Signs/Narrative: Vital Signs Temp Pulse Resp BP Pulse Ox 05/14/20 09:06 98.0 F 99 16 127/74 H 95 Inpatient E&M: 36347 Subs Hosp L2
--- NOTE | 2020-05-14 12:20 | CASEMGMT ---
Social Work IDT met with patient and son via conference call for Team meeting. Discussed patient's progress in therapy and nursing. Pt progressing in therapy with extra time. ST working on cognition, sequencing and planning. Pt still reports poor appetite. changed and increased medications, as well as changing depression meds. hopefully those changes will improve pt's mood and sleep; however, did discuss the possibility of peg tube placement in the future. reports pt is very malnourished and weak. Explained Medicare approved 15 days with EDC 05/25. The goal is for pt to return home alone, however, pt is realistic about possibility needing continued therapy and nursing after day 15. SW to assist with DC plans. Will ReTeam next week. Lita Lugo, SECURITY INFRASTRUCTURE ENGINEER BARREL FILLER
[2020-05-14] MEDS: Prenatal Vits Tablet 1 TABLET PO (12:26)
--- NOTE | 2020-05-14 13:29 | CASEMGMT ---
Addendum entered by Lita Lugo 05/15/20 11:36: Followed up with [facility] - left message. Original Note: Social Work Left message with [facility] inquiring about pt getting grief counseling services from whom using their services about a year ago. Pt agreeable to speak with rep on services. Lita Lugo, ANJEL MORALES
[2020-05-14 19:58] VITALS: BP 122/81; PULSE 94; RESP 18; TEMP 36.8; O2SAT 95
[2020-05-14] MEDS: 0.9% Saline Lock 10 ML Syringe IV (20:06)
[2020-05-14] MEDS: Na Biphos/Potassium Phosphate PACKET 1 PACKET PO (22:15)
[2020-05-14] MEDS: Dronabinol 2.5 MG Capsule PO (22:15)
[2020-05-15] MEDS: oxyCODONE 5 MG Tablet PO ×4 (04:49→23:05)
[2020-05-15] MEDS: Na Biphos/Potassium Phosphate PACKET 1 PACKET PO ×3 (05:21→22:05)
[2020-05-15] MEDS: Menthol/Lanolin/Calamine/Znox 113 GM Tube 1 APPLIC TOPICAL ×3 (05:22→23:02)
[2020-05-15] MEDS: Multivitamins,Therapeutic Tablet 1 TABLET PO (07:55)
[2020-05-15] MEDS: Pantoprazole Sodium 40 MG Tablet PO ×2 (07:55→22:05)
[2020-05-15] MEDS: Senna/Docusate Sodium 1 Tablet 2 TABLET PO ×2 (07:55→22:06)
[2020-05-15] MEDS: Sertraline 50 MG Tablet PO (07:55)
[2020-05-15] MEDS: Calcium Carb/Vitamin D 1 TABLET Tablet PO ×2 (07:56→17:25)
[2020-05-15 08:01] VITALS: BP 117/68; PULSE 95; RESP 16; TEMP 36.4; O2SAT 95
[2020-05-15] MEDS: Dronabinol 2.5 MG Capsule PO ×2 (09:13→22:05)
--- NOTE | 2020-05-15 10:42 | PCM.PN.BLA ---
Progress Note Afebrile since admission VSS-blood pressures well controlled Maintaining appropriate oxygen saturation on RA Oral intake is poor The weight today is 81 pounds and 9 ounces, up from 80 pounds and 14 ounces at admission to the rehab unit. She is incontinent of urine. Etiology? Discussed with nursing - no problems that need addressed other than poor intake. Reviewed the PT/OT/ST notes Medication list reviewed. I discussed with ST the possibility that she may have had a CVA and they feel this is a definite possibility. She has moderate cognitive?linguistic deficits on the MARIA ESTHER 3. she danilo the clock backwards for the OT. She has trouble with visuospatial orientation. She has hallucinations also. She could have dementia....possibly Lewy Body with the hallucinations. She is sleepy and looks very weak. Lungs are diminished but clear. No cough, no conversational dyspnea and no tachypnea. H - resting HR is high.....more likely than not due to dehydration abd - flat, soft, no guarding with palpation, no masses no edema Impressions 1. Physical debility secondary to recent fall resulting in a left hip fracture 2. Status post cephalomedullary nail to the left hip on 05/08/2020 3. Hyponatremia-resolved 4. Thrombocytopenia-most likely secondary to low molecular weight heparin 5. Hemoccult positive stool 6. Hypophosphatemia 7. Severe protein calorie malnutrition 8. Dehydration 9. Major depression Increase sertraline to 50 mg p.o. daily Continue phosphorus supplementation Continue therapy STROKE Vital Signs/Narrative: Vital Signs Temp Pulse Resp BP Pulse Ox 05/15/20 08:01 97.6 F L 95 16 117/68 95 Inpatient E&M: 91881 Subs Hosp L2
--- NOTE | 2020-05-15 10:58 | CT_ITS ---
STUDY: CT BRAIN WITHOUT CONTRAST REASON FOR EXAM: Female, 64 years old. Cognitive dysfunction RADIATION DOSAGE (If Supplied By Facility): CTDIvol = ( 44.99 ) mGy, DLP = ( 796.11 ) mGycm TECHNIQUE: Transaxial CT imaging of the brain was performed without administration of intravenous contrast material. Individualized dose optimization techniques were used for this CT. COMPARISON: No relevant priors. FINDINGS: Normal soft tissue structures. Normal calvarium. There is mild cerebral atrophy with widening of the extra-axial spaces and ventricular dilatation. There are areas of decreased attenuation within the white matter tracts of the supratentorial brain, consistent with microvascular disease changes. There are small punctate calcifications of the basal ganglia which are seen in the aging brain as a normal variant. Normal brainstem. There is mild cerebellar atrophy. There is no intracranial hemorrhage. There are no findings of an acute ischemic infarction. Normal visualized paranasal sinuses. CT/Brain/Head without Contrast IMPRESSION: Chronic involutional changes of the brain. Electronically Signed: Jewel Tee MD at 12:40 EST , Service support ,
--- NOTE | 2020-05-15 11:25 | NURSING ---
off unit to ct of the brain per orders
[2020-05-15 21:55] VITALS: BP 128/78; PULSE 105; RESP 16; TEMP 36.8; O2SAT 92
[2020-05-16] MEDS: Menthol/Lanolin/Calamine/Znox 113 GM Tube 1 APPLIC TOPICAL ×3 (06:05→22:12)
[2020-05-16] MEDS: Acetaminophen 325 MG Tablet 650 MG PO (06:05)
[2020-05-16] MEDS: Na Biphos/Potassium Phosphate PACKET 1 PACKET PO ×2 (06:06→22:12)
[2020-05-16] MEDS: Multivitamins,Therapeutic Tablet 1 TABLET PO (08:33)
[2020-05-16] MEDS: Pantoprazole Sodium 40 MG Tablet PO ×2 (08:33→22:13)
[2020-05-16] MEDS: Dronabinol 2.5 MG Capsule PO (08:33)
[2020-05-16] MEDS: Calcium Carb/Vitamin D 1 TABLET Tablet PO ×2 (08:33→16:57)
[2020-05-16] MEDS: Sertraline 50 MG Tablet PO (08:33)
[2020-05-16] MEDS: oxyCODONE 5 MG Tablet PO (08:47)
[2020-05-16 08:54] VITALS: BP 131/66; PULSE 98; RESP 16; TEMP 36.4; O2SAT 95
--- NOTE | 2020-05-16 11:09 | PCM.PN.BLA ---
Progress Note CT scan of the brain yesterday showed mild cerebral atrophy and mild cerebellar atrophy. There are areas of decreased attenuation within the white matter tracts of the supratentorial brain consistent with microvascular disease. There are small punctate calcifications of the basal ganglion which can be seen in the aging brain as a normal variant. Remains afebrile Heart rate is consistently in the 90s and last night was 105. Blood pressure is controlled. She is maintaining an oxygen saturation of 92 to 95% on room air with no tachypnea. Oral intake remains very poor. I reviewed the dietitians note from yesterday and discussed with her. She observed the patient eating and she loads her fork but will not bring it to her mouth without cueing. She observe the patient for 10 minutes and the patient ingested no actual food during that 10 minutes. fatigued, in bed when not doing therapy does not make good eye contact Depressed affect Lungs - CTA H - regular with an increased resting HR no edema, no calf pain Impressions 1. Physical debility secondary to recent fall resulting in a left hip fracture 2. Status post cephalomedullary nail to the left hip on 05/08/2020 3. Hyponatremia-resolved 4. Thrombocytopenia-most likely secondary to low molecular weight heparin 5. Hemoccult positive stool 6. Hypophosphatemia 7. Severe protein calorie malnutrition 8. Dehydration 9. Major depression I am not entirely sure of the etiology of the cognitive-linguistic deficits and the hallucinations. The CT of the head had mild atrophy with no evidence NPH or masses. the TSH is WNL. B12 is normal. She needs max cueing to manage the walker, a calculator and writing? She needs cueing to take a bite of food? Hold dronabinol DC oxycodone Scheduled Tylenol 1 g p.o. every 8 hours Doubt vasculitis - will check an ESR and if it is not significantly elevated then will not get an HU at this time. STROKE Vital Signs/Narrative: Vital Signs Temp Pulse Resp BP Pulse Ox 05/16/20 08:54 97.6 F L 98 16 131/66 H 95 Inpatient E&M: [id number] Subs Hosp L2
[2020-05-16 11:39] VITALS: BP 118/79; BP 118/84; BP 143/93; PULSE 101; PULSE 103; PULSE 115
[2020-05-16 12:40] LABS: Erythrocyte Sedimentation Rate 15 mm/hr (0-30)
[2020-05-16] MEDS: Dext 5%-0.45% NS 1,000 ML 60 ML IV (13:27)
[2020-05-16] MEDS: 0.9% Saline Lock 10 ML Syringe IV (13:27)
[2020-05-16] MEDS: Acetaminophen 500 MG Tablet 1000 MG PO ×2 (13:57→22:12)
[2020-05-16 19:33] VITALS: BP 129/86; PULSE 88; RESP 16; TEMP 36.5; O2SAT 97
[2020-05-16 22:00] VITALS: PULSE 88; RESP 16; O2SAT 97
--- NOTE | 2020-05-17 03:32 | NURSING ---
Reviewed and agree with COMMERCIAL REAL ESTATE AGENT documentation and charting.
[2020-05-17] MEDS: Acetaminophen 500 MG Tablet 1000 MG PO ×3 (05:30→22:52)
[2020-05-17] MEDS: Menthol/Lanolin/Calamine/Znox 113 GM Tube 1 APPLIC TOPICAL ×3 (05:31→22:52)
[2020-05-17] MEDS: Na Biphos/Potassium Phosphate PACKET 1 PACKET PO ×3 (05:31→22:52)
[2020-05-17 06:00] VITALS: BP 100/71; BP 119/73; BP 94/74; PULSE 105; PULSE 93; PULSE 96
[2020-05-17] MEDS: Dext 5%-0.45% NS 1,000 ML 60 ML IV (06:03)
[2020-05-17 07:49] VITALS: BP 119/73; PULSE 100; RESP 93; TEMP 36.6; O2SAT 98
[2020-05-17] MEDS: Multivitamins,Therapeutic Tablet 1 TABLET PO (07:53)
[2020-05-17] MEDS: Pantoprazole Sodium 40 MG Tablet PO ×2 (07:54→22:51)
[2020-05-17] MEDS: Sertraline 50 MG Tablet PO (07:54)
[2020-05-17] MEDS: Calcium Carb/Vitamin D 1 TABLET Tablet PO ×2 (07:54→16:21)
[2020-05-17 19:45] VITALS: BP 101/64; PULSE 84; RESP 18; TEMP 36.8; O2SAT 94
[2020-05-17] MEDS: 0.9% Saline Lock 10 ML Syringe IV (23:02)
[2020-05-18] MEDS: 0.9% Saline Lock 10 ML Syringe IV (00:55)
[2020-05-18] MEDS: Dext 5%-0.45% NS 1,000 ML 60 ML IV (01:16)
[2020-05-18] MEDS: Acetaminophen 500 MG Tablet 1000 MG PO ×3 (05:24→21:31)
[2020-05-18] MEDS: Na Biphos/Potassium Phosphate PACKET 1 PACKET PO ×3 (05:24→21:32)
[2020-05-18] MEDS: Menthol/Lanolin/Calamine/Znox 113 GM Tube 1 APPLIC TOPICAL ×3 (05:25→21:32)
[2020-05-18] MEDS: Loperamide 2 MG Capsule PO (05:46)
[2020-05-18 06:00] VITALS: BP 111/66; BP 113/69; BP 99/68; PULSE 101; PULSE 87
[2020-05-18 08:23] VITALS: BP 116/74; PULSE 90; RESP 16; TEMP 36.4; O2SAT 95
[2020-05-18] MEDS: Pantoprazole Sodium 40 MG Tablet PO (08:29)
[2020-05-18] MEDS: Calcium Carb/Vitamin D 1 TABLET Tablet PO ×2 (08:29→18:09)
[2020-05-18] MEDS: Multivitamins,Therapeutic Tablet 1 TABLET PO (08:29)
[2020-05-18] MEDS: Sertraline 50 MG Tablet PO (08:30)
--- NOTE | 2020-05-18 10:09 | PN_ITS ---
Progress Note Afebrile Resting heart rate is in the 80s today. Orthostatics are mildly positive despite hydration. She is maintaining an appropriate oxygen saturation on room air. Nursing encouraged her at meals to at least drink the ensure and she actually took 1240 PO yesterday. She had liquid diarrhea yesterday. Fecal leukocytes and the enteric pathogen panel were negative. She has responded well to Imodium. 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 This illuminates why she had hallucinations and confusion at admission because it was likely secondary to acute alcohol withdrawal. Doreen tells me that she drinks a sixpack of beer daily and denies any use of hard liquor. She is vague when I asked her how long she has been drinking. She tells me that she has tried to stop on her own in the past and actually got off alcohol for a few weeks but then went back to daily drinking. She cannot tell me why she resumed drinking. She has never had any counseling for alcohol abuse and is never been to AA. She is also not had any counseling for depression. eligibility worker has reached out to [facility] and we are trying to set up video conferencing so that she can have some counseling while she is in the hospital here. She tells me she is not sleeping well at night. She still has no appetite. She denies having any hallucinations and she is more lucid. She denies any suicidality and tells me that she does not want to .......she is at a loss for how to help herself and she is so depressed that she has no motivation. She is willing to have counselling and wants help. She is pale. she is more talkative today and talking more than 1 word sentences. Still not making eye [id number] when we started to talk about her drinking. she is lying nearly flat in bed with no SOB, tachypnea or conversational dyspnea H- RRR, no nearly as tachycardic since she has been hydrated, no gallop abd - soft and non-distended no pitting peripheral edema some serous drainage from the incision, no purulent DC Impressions 1. Physical debility secondary to recent fall resulting in a left hip fracture 2. Status post cephalomedullary nail to the left hip on 05/08/2020 3. Hyponatremia-resolved 4. Thrombocytopenia-most likely secondary to low molecular weight heparin 5. Hemoccult positive stool 6. Hypophosphatemia 7. Severe protein calorie malnutrition 8. Dehydration 9. Major depression 10. insomnia Add Elavil 25 mg Q HS COntinue the Sertraline 50 mg daily and if she continues to tolerate this well will increase to 100 mg daily in 1 week D/W with the exceptional children teacher. They recommend trying enteral feeding tube before considering PPN however, she is immunocompromised and I do not want to risk a sinus infection. She also is having diarrhea which is likely due to sloughing of the intestinal brush border due to severe protein calorie malnutrition and we do not have an elemental formula. It is my hope that if we can use the PPN for a week to 10 days that the antidepressant will kick in and she will start eating better.......she dd better yesterday. If the nutrition improves the intestine will function better. CMP, CBC, mag, Phos, triglycerides in the a.m. Discussed with the elementary school social worker who will provide information regarding inpatient and outpatient counseling for alcohol abuse and depression.....I would favor her going inpt initially because unless the depression is being managed, which will not happen immediately, she will be at very high risk of going home and continuing in the same manner she was prior to the fall. Continue with daily discussions with her about why she drinks, what she can do to help herself and how important asking for help and learning to trust that people will help her is. STROKE Vital Signs/Narrative: Vital Signs Temp Pulse Resp BP Pulse Ox 05/18/20 08:23 97.5 F L 90 16 116/74 95 Inpatient E&M: [id number] Subs Hosp L3
--- NOTE | 2020-05-18 11:07 | PCM.NTREPORT ---
Nutrition Therapy Report - History Nutrition Services has been consulted to:: Manage parenteral nutrition Current diet / nutrition support order:: Regular diet. 240ml leah Ensure Enlive TID w/ meals. Leslie Magic Cup BID w/ lunch and dinner. [ End ] - Anthropometric Measurements Height:: 5 ft 1 in Weight:: 37 kg Body Mass Index (BMI):: 15.4 - Relevant Labs Relevant Labs:: RBC 3.51 M/mm3 (4.2-5.4) L 05/13/20 Unknown Hgb 11.5 g/dL (12.0-15.0) L 05/13/20 Unknown Hct 35.4 % (37-47) L 05/13/20 Unknown MCV 100.9 fL (81-99) H 05/13/20 Unknown MCH 32.8 pg (27.0-32.0) H 05/13/20 Unknown MCHC 31.1 g/dL (32-36) L D 05/12/20 07:47 RDW Std Deviation 66.4 fl (35.1-43.9) H 05/13/20 Unknown RDW Coeff of Alana 18.6 % (11.6-14.6) H 05/13/20 Unknown Plt Count 124 K/mm3 (150-450) L 05/13/20 Unknown Chloride 108 mmol/L (98-107) H 05/14/20 05:56 BUN 6 mg/dL (7-18) L 05/11/20 05:20 Creatinine 0.27 mg/dL (0.55-1.02) L 05/14/20 05:56 BUN/Creatinine Ratio 48.7 RATIO (10-20) H 05/14/20 05:56 Glucose 69 mg/dL (74-106) L 05/11/20 05:20 Calcium 8.0 mg/dL (8.5-10.1) L 05/14/20 05:56 Phosphorus 2.3 mg/dL (2.5-4.9) L 05/14/20 05:56 Total Bilirubin 2.00 mg/dL (0.20-1.00) H 05/11/20 05:20 AST 39 U/L (15-37) H 05/11/20 05:20 Alkaline Phosphatase 179 U/L (45-117) H 05/11/20 05:20 Total Protein 3.8 g/dL (6.4-8.2) L 05/11/20 05:20 Albumin 1.6 g/dL (3.2-5.0) L 05/11/20 05:20 Albumin/Globulin Ratio 0.7 RATIO (0.9-2.4) L 05/11/20 05:20 - Assessment Food / Nutrition-Related History:: Per Dr. Rahman - need for parenteral nutrition support d/t pt unable to absorb ONS w/ meals aeb frequent diarrhea. Enteral route not feasible d/t pt confusion/agitation and likely will pull tube out. Pt is a total feed and needs cueing for each bite. Attempted marinol to help encourage increased appetite, but not effective so d/c. Pt po intake has been <50% since adm 05/11/20. [ End ] - Nutrition Diagnosis Problem / Etiology / Signs & Symptoms (PES):: Chronic condition or condition of malnutrition in the context of social circumstance related to ongoing poor appetite and anorexia as evidenced by 19% wt loss x 1 year, BMI 15.3, poor PO at meals x past 6 months and +NFPA with muscle and fat wasting in the face, clavicle, arms and upper body. Inadequate oral intake r/t suspected depression aeb PO intake meeting <50% of estimated nutritional needs at meals. [ End ]. [ End ]. [ End ] Evidence of Malnutrition Exists:: Yes Severe PCM:: Chronic Illness - Nutrition Intervention Nutrition Prescription:: Estimated nutrition needs for repletion~0404-4812 kcal (38 kcal/Kg) and ~50-60 gm protein (1.5 gm pro/kg) per day. Estimated fluid needs~9802-9774 ml/day (1ml/Kcal). [ End ] - Food / Nutrient Delivery Interventions Summary of nutrition intervention:: Will continue regular diet. Will continue 240 ml ensure enlive TID w/ meals and magic cup BID w/ lunch and dinner. Will order parenteral nutrition to supplement PO intake. [ End ] Nutrition support ordered as / adjusted to:: Ordered 1L 4.25% AA/10% Dextrose to provide ~ 510 ruperto / 42 gm pro/day with goal to increase to 2L 4.25%AA/10% Dextrose to provide ~ 1020 ruperto/84 gm pro/day in addition to po intake. [ End ] - MNT Monitoring Further MNT monitoring and evaluation required?: Yes MNT Follow-up in:: 1-2 days - please call RD/LD if questions/concerns at [phone]
[2020-05-18 11:14] VITALS: BMI 15.4
[2020-05-18 11:15] LABS: Bedside Glucose 88 mg/dL (70-110)
[2020-05-18 17:16] LABS: Bedside Glucose 95 mg/dL (70-110)
[2020-05-18 19:52] VITALS: BP 105/62; PULSE 82; RESP 16; TEMP 36.3; O2SAT 96
[2020-05-18] MEDS: Amitriptyline 25 MG Tablet PO (21:32)
[2020-05-18 23:40] LABS: Bedside Glucose 129 mg/dL (70-110)
[2020-05-19 05:23] VITALS: BP 113/84; BP 124/72; BP 125/71; PULSE 109; PULSE 90; PULSE 97
[2020-05-19] MEDS: Acetaminophen 500 MG Tablet 1000 MG PO ×3 (05:46→21:28)
[2020-05-19] MEDS: Na Biphos/Potassium Phosphate PACKET 1 PACKET PO ×3 (05:46→21:29)
[2020-05-19] MEDS: Menthol/Lanolin/Calamine/Znox 113 GM Tube 1 APPLIC TOPICAL ×3 (05:47→21:29)
[2020-05-19 06:56] LABS: Bedside Glucose 99 mg/dL (70-110)
[2020-05-19 07:16] LABS: Hematocrit 33.2 % (37-47); Hemoglobin 10.7 g/dL (12.0-15.0); Mean Corp Hgb Conc 32.2 g/dL (32-36); Mean Corpuscular Hgb 33.6 pg (27.0-32.0); Mean Corpuscular Volume 104.4 fL (81-99); Mean Platelet Vol. 9.9 fl (6.2-12.0); POSITIVE MORPHOLOGY YES; Platelet Count 325 K/mm3 (150-450); RBC Distribution Width SD 72.2 fl (35.1-43.9); Red Blood Count 3.18 M/mm3 (4.2-5.4); White Blood Count 7.5 K/mm3 (4.4-11.0)
[2020-05-19 07:33] LABS: Scan Indicated on CBC? Y/N YES- FLAGS NOTED
[2020-05-19 07:43] LABS: ALB/GLOB Ratio 0.5 RATIO (0.9-2.4); AST(SGOT) 32 U/L (15-37); Alanine Aminotransfer ALT/SGPT 20 U/L (13-56); Albumin, Serum 1.6 g/dL (3.2-5.0); Alkaline Phosphatase 179 U/L (45-117); Anion Gap 4 (5-15); BUN 10 mg/dL (7-18); BUN/Creat Ratio 25.3 RATIO (10-20); Calcium,Total 7.9 mg/dL (8.5-10.1); Chloride 106 mmol/L (98-107); EST Glomerular Filtration Rate 171 mL/min (>60); Est Glom Filt Rate - Afr Amer 207 mL/min (>60); Estimated Creatinine Clearance 33.02 ml/min; Globulin 3.1 g/dL (2.2-4.2); Glucose 93 mg/dL (74-106); Magnesium 1.8 mg/dL (1.6-2.6); Phosphorus 3.5 mg/dL (2.5-4.9); Potassium 4.2 mmol/L (3.5-5.1); Protein, Total 4.7 g/dL (6.4-8.2); Sodium Level 138 mmol/L (136-145); Triglycerides 109 mg/dL
[2020-05-19] MEDS: Thiamine Hydrochloride 100 MG Tablet PO (07:58)
[2020-05-19] MEDS: Calcium Carb/Vitamin D 1 TABLET Tablet PO ×2 (07:58→16:18)
[2020-05-19] MEDS: Sertraline 50 MG Tablet PO (07:59)
[2020-05-19] MEDS: Loperamide 2 MG Capsule PO (08:01)
--- NOTE | 2020-05-19 09:24 | NURSING ---
Pt re-weighed prior to breakfast x2. Weight increased from prior weights, Physician notified and aware. No new order at this time.
[2020-05-19 09:27] LABS: Differential Comment SCANNED
[2020-05-19 09:41] VITALS: BP 125/71; PULSE 90; RESP 16; TEMP 37; O2SAT 93
[2020-05-19 12:10] LABS: Bedside Glucose 107 mg/dL (70-110)
[2020-05-19] MEDS: 0.9% Saline Lock 10 ML Syringe IV (15:33)
[2020-05-19 16:56] LABS: Bedside Glucose 104 mg/dL (70-110)
[2020-05-19 19:44] VITALS: BP 107/68; PULSE 93; RESP 16; TEMP 36.8; O2SAT 96
[2020-05-19] MEDS: Amitriptyline 25 MG Tablet PO (21:29)
[2020-05-19 21:35] LABS: Bedside Glucose 105 mg/dL (70-110)
[2020-05-20] MEDS: Acetaminophen 500 MG Tablet 1000 MG PO ×3 (05:20→20:47)
[2020-05-20] MEDS: Menthol/Lanolin/Calamine/Znox 113 GM Tube 1 APPLIC TOPICAL ×3 (05:21→20:48)
[2020-05-20] MEDS: Na Biphos/Potassium Phosphate PACKET 1 PACKET PO ×3 (05:21→20:48)
[2020-05-20 07:15] LABS: Bedside Glucose 104 mg/dL (70-110)
[2020-05-20 07:49] VITALS: BP 120/71; PULSE 99; RESP 16; TEMP 37.2; O2SAT 93
[2020-05-20] MEDS: Sertraline 50 MG Tablet PO (09:52)
[2020-05-20] MEDS: Calcium Carb/Vitamin D 1 TABLET Tablet PO ×2 (09:52→16:41)
[2020-05-20] MEDS: Thiamine Hydrochloride 100 MG Tablet PO (09:53)
[2020-05-20] MEDS: Loperamide 2 MG Capsule PO (09:53)
[2020-05-20 11:21] LABS: Bedside Glucose 105 mg/dL (70-110)
[2020-05-20 17:05] LABS: Bedside Glucose 113 mg/dL (70-110)
[2020-05-20 18:55] VITALS: BP 123/67; PULSE 103; RESP 16; TEMP 36.6; O2SAT 95
[2020-05-20] MEDS: Amitriptyline 25 MG Tablet PO (20:51)
[2020-05-20 21:35] LABS: Bedside Glucose 99 mg/dL (70-110)
[2020-05-21] MEDS: Acetaminophen 500 MG Tablet 1000 MG PO ×2 (04:45→14:17)
[2020-05-21] MEDS: Menthol/Lanolin/Calamine/Znox 113 GM Tube 1 APPLIC TOPICAL ×3 (04:46→23:20)
[2020-05-21] MEDS: Na Biphos/Potassium Phosphate PACKET 1 PACKET PO ×3 (04:46→21:50)
[2020-05-21 07:11] LABS: Bedside Glucose 91 mg/dL (70-110)
[2020-05-21] MEDS: Sertraline 50 MG Tablet PO (07:26)
[2020-05-21] MEDS: Thiamine Hydrochloride 100 MG Tablet PO (07:26)
[2020-05-21] MEDS: Calcium Carb/Vitamin D 1 TABLET Tablet PO ×2 (07:26→16:27)
[2020-05-21 08:11] VITALS: BP 129/68; PULSE 103; RESP 16; TEMP 37; O2SAT 92
[2020-05-21 11:25] LABS: Bedside Glucose 105 mg/dL (70-110)
--- NOTE | 2020-05-21 14:02 | CASEMGMT ---
Social Work IDT met with patient and son via conference call for Team meeting. Discussed patient's progress in therapy and nursing. Pt is progressing well but IDT recommend continued therapy at a SNF. Pt and son agree pt will not be safe at home alone at this time. Explained Medicare coverage at a SNF. Pt denied list and stated just give it to my son. Emailed list of SNFs that provides include quality and resource data that is consistent with the pt's preferred geographic region, medical needs and insurance networks. Pt will DC from [facility] 05/25. Encouraged son to provide 2-3 choices soon for SW to refer to. Son agreeable. Plan: DC 05/25 to SNF skilled [facility] Quis[facility]
--- NOTE | 2020-05-21 15:14 | PCM.PN.BLA ---
Progress Note Doreen was seen on team rounds today. Her son Sixto participated by phone. Afebrile VSS Maintaining appropriate oxygen saturation on RA Oral intake is improving but she is only taking liquids. She is drinking only Ensure offered to her. I am having trouble believing that she has gone from 80 pounds and 14 ounces at admission to 105 pounds and 3 ounces today? She remains incontinent of urine. Discussed with nursing - no problems that need addressed. She is requiring a 2 person assist from nursing to get her into and out of bed and onto the BSC. Reviewed the PT/OT/ST notes Medication list reviewed. All lab from Thursday was reviewed. White blood cell count is within normal limits and the hemoglobin is 10.7 which is mildly decreased, likely secondary to hydration. Platelets are now within normal limits at 325,000. Potassium was 4.2 and the sodium is 138. BUN is 10 with a creatinine of 0.4. Calcium corrected for hypoalbuminemia is within normal limits. The bilirubin is now normal at 0.7. Albumin is 1.6. Triglycerides were 109. the belt maker decreased the PPN to 1 liter daily since she has been drinking all of the Ensure. Doreen tells me that she is sleeping well now. therapy tells me that she is doing better with following instructions. she denies SOB, nausea/vomiting, chest pain, palpitations, abdominal pain. She does have early satiety. Sixto continues to maintain that Doreen was independent with all ADL's prior to admission to the hospital and she had no cognitive dysfunction. She may have Wernicke's encephalopathy due to combined severe protein calorie malnutrition and chronic ETOH abuse. It was not immediately recognized as WE because the patient denied ETOH use at admission and her son did not mention it until 05/17/20. I also feel she likely had hallucinations due to acute alcohol withdrawal. alert, smiling, more with it today. Less fatigued. Tells me she will try a grilled cheese and a bowl of vegetable soup for lunch. Lungs are decreased but CTA H - increased resting HR even with hydration.....this could be due to WE no rashes, the incision is intact with persistent swelling......likely related to severe hypoalbuminemia no calf pain. Impressions 1. tachycardia despite hydration - TSH was normal in Feb 2. suspected DT's with hallucinations 3. suspected WE - delayed diagnosis because she denies any ETOH consumption at admission to the hospital 4. Debility secondary to recent fall resulting in hip fracture. Also secondary to severe protein/calorie malnutrition and severe depression. 5. History of daily alcohol abuse 6. Acute blood loss anemia secondary to ORIF of hip fracture 7. Severe hypoalbuminemia secondary to protein/calorie nutrition with third spacing of fluids around the incision 8. major depression Thiamin 500 mg IV now and then 250 mg daily X5 and then restart 1 mg BID Change the Ensure to between meals and at bedtime so that she is not full at mealtime and can hopefully eat something. Continue PPN 1 L daily recheck lab on Thursday She did take 25-49% of her lunch today....this is an improvement. Continue therapy Patient will not be strong enough at discharge to return home by herself. She is agreeable to SNF until she is strong enough to go home by herself......mentation will have to improve significantly if this is going to happen Inpatient E&M: 110[address] [facility] Hosp L2
[2020-05-21] MEDS: 0.9% Saline Lock 10 ML Syringe IV (16:40)
[2020-05-21 16:50] LABS: Bedside Glucose 109 mg/dL (70-110)
[2020-05-21 19:39] VITALS: BP 111/67; PULSE 100; RESP 16; TEMP 36.7; O2SAT 98
[2020-05-21] MEDS: Acetaminophen 325 MG Tablet 650 MG PO (21:50)
[2020-05-21] MEDS: Amitriptyline 25 MG Tablet PO (21:50)
[2020-05-21 22:00] VITALS: PULSE 103; RESP 18; O2SAT 97
[2020-05-21 23:05] LABS: Bedside Glucose 108 mg/dL (70-110)
--- NOTE | 2020-05-21 23:17 | NURSING ---
18 koffi removed from left hip and EMOTIONAL SUPPORT TEACHER. Pt tolerated fair. Incision site cleansed with soap and water, then dried.
[2020-05-22] MEDS: Acetaminophen 325 MG Tablet 650 MG PO ×3 (05:00→21:44)
[2020-05-22] MEDS: Na Biphos/Potassium Phosphate PACKET 1 PACKET PO ×3 (05:00→21:44)
[2020-05-22] MEDS: Menthol/Lanolin/Calamine/Znox 113 GM Tube 1 APPLIC TOPICAL ×3 (05:05→21:46)
[2020-05-22 05:48] LABS: Hematocrit 31.7 % (37-47); Hemoglobin 10.1 g/dL (12.0-15.0)
[2020-05-22 06:22] LABS: Anion Gap 6 (5-15); BUN 14 mg/dL (7-18); BUN/Creat Ratio 40.7 RATIO (10-20); Calcium,Total 8.1 mg/dL (8.5-10.1); Chloride 105 mmol/L (98-107); Creatinine, Serum 0.34 mg/dL (0.55-1.02); EST Glomerular Filtration Rate 201 mL/min (>60); Est Glom Filt Rate - Afr Amer 244 mL/min (>60); Estimated Creatinine Clearance 41.67 ml/min; Glucose 93 mg/dL (74-106); Phosphorus 3.2 mg/dL (2.5-4.9); Potassium 3.9 mmol/L (3.5-5.1); Sodium Level 139 mmol/L (136-145)
[2020-05-22 06:40] LABS: Bedside Glucose 98 mg/dL (70-110)
[2020-05-22 07:37] VITALS: PULSE 110
[2020-05-22] MEDS: Calcium Carb/Vitamin D 1 TABLET Tablet PO ×2 (07:49→17:24)
[2020-05-22] MEDS: Sertraline 50 MG Tablet PO (07:49)
[2020-05-22 10:00] VITALS: BP 116/65; PULSE 98; RESP 16; TEMP 36.7; O2SAT 95
--- NOTE | 2020-05-22 10:22 | NURSING ---
CONSENT OBTAINED FROM KEVIN CEE TO INSERT MIDLINE VERIFIED BY KYLE KNOX LPN.
--- NOTE | 2020-05-22 13:39 | PCM.NTREPORT ---
Nutrition Therapy Report - History Nutrition Services has been consulted to:: Manage nutrient details of diet order, Manage parenteral nutrition, Conduct nutrition education Current diet / nutrition support order:: Regular-ensure enlive w/ meals, magic cup BID. Ensure enlive 120mL 4x/day. TPN- 1L 4.25% dextrose/10% AA to provide 510 calories, 42 g protein/day - Anthropometric Measurements Height:: 5 ft 1 in Weight:: 47.718 kg Body Mass Index (BMI):: 19.8 - Relevant Labs Relevant Labs:: RBC 3.18 M/mm3 (4.2-5.4) L 05/19/20 07:10 Hgb 10.1 g/dL (12.0-15.0) L 05/22/20 05:38 Hct 31.7 % (37-47) L 05/22/20 05:38 MCV 104.4 fL (81-99) H 05/19/20 07:10 MCH 33.6 pg (27.0-32.0) H 05/19/20 07:10 MCHC 31.1 g/dL (32-36) L D 05/12/20 07:47 RDW Std Deviation 72.2 fl (35.1-43.9) H 05/19/20 07:10 RDW Coeff of Alana 19.0 % (11.6-14.6) H 05/19/20 07:10 Plt Count 124 K/mm3 (150-450) L 05/13/20 Unknown Chloride 108 mmol/L (98-107) H 05/14/20 05:56 Anion Gap 4 (5-15) L 05/19/20 07:10 BUN 6 mg/dL (7-18) L 05/11/20 05:20 Creatinine 0.34 mg/dL (0.55-1.02) L 05/22/20 05:38 BUN/Creatinine Ratio 40.7 RATIO (10-20) H 05/22/20 05:38 Glucose 69 mg/dL (74-106) L 05/11/20 05:20 Calcium 8.1 mg/dL (8.5-10.1) L 05/22/20 05:38 Phosphorus 2.3 mg/dL (2.5-4.9) L 05/14/20 05:56 Total Bilirubin 2.00 mg/dL (0.20-1.00) H 05/11/20 05:20 AST 39 U/L (15-37) H 05/11/20 05:20 Alkaline Phosphatase 179 U/L (45-117) H 05/19/20 07:10 Total Protein 4.7 g/dL (6.4-8.2) L 05/19/20 07:10 Albumin 1.6 g/dL (3.2-5.0) L 05/19/20 07:10 Albumin/Globulin Ratio 0.5 RATIO (0.9-2.4) L 05/19/20 07:10 - Assessment Food / Nutrition-Related History:: Family reporting hx of alcohol abuse; 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 Plans for central line placement today. Continues to consume <50% of meals, accepting of Ensure. Ensure adjusted to 4x/day in between meals to promote PO intake at mealtimes. Wt stable since last review. Suspect wt gain r/t fluid status/edema. - Nutrition Diagnosis Evidence of Malnutrition Exists:: Yes Severe PCM:: Social & Environmental circumstances - Nutrition Intervention Nutrition Prescription:: 1830-8210 kcal (38 kcal/Kg). 50-60 gm protein (1.5 gm pro/kg) per day. 7605-3387 ml/day (1ml/Kcal). *concerns for refeeding syndrome, recommend gradual increase of protein/calories - Food / Nutrient Delivery Interventions Summary of nutrition intervention:: Discussed w/ Dr. Rahman. With central line placement, can increase to 1L 5% AA/20% dextrose solution tomorrow 05/23/20 to increase calories/protein provided w/o increasing fluid given. Will renew TPN for today as ordered. Visited w/ pt while she was eating lunch. Encouragement provided. Pt w/ no questions. Nutrition support ordered as / adjusted to:: Continue regular diet; will d/c ensure enlive w/ meals and continue ensure w/ medpass to encourage PO intake at meals. Will continue magic cup BID w/ lunch and dinner. Will continue TPN- 1L 4.25% AA/10% dextrose to provide an additional 510 calories, 42 g protein/day.
[2020-05-22 13:42] VITALS: BMI 19.8
--- NOTE | 2020-05-22 14:24 | CASEMGMT ---
Addendum entered by Lita Lugo 05/23/20 17:33: [facility] accepted and this is first choice. 7000 completed. Son to transport. Plan: DC to [facility] 05/25. Original Note: Social Work Son provided several SNFs to refer to. Referrals made to [facility] and [facility]. Will continue to follow. Lita Lugo, [facility] GARCIAW
--- NOTE | 2020-05-22 14:33 | PCM.PN.BLA ---
Progress Note AF VSS wt continues to increase - due to fluid retention she ate a little soup yesterday and a small piece of a grilled cheese. She continues to say she is not hungry. She denies orthopnea, SOB at rest. no calf pain and no rashes. alert, smiling, making good eye contact with me today She is cooperating with therapy. Still very weak. Lungs are diminished, samia in the bases today. No wheezes, rales or rhonchi She has anasarca due to third spacing of fluids H- regular with an increased HR no rashes Impressions 1. Severe malnutrition-she is drinking her Ensure but still not eating much. I told her to at least eat a few bites of the things on her plate......we are giving the Ensure between meals now and the manager union is going to take the Ensure off her trays 2. Wernicke's encephalopathy 3. anasarca due to severe hypoalbuminemia....m ore likely than not she also has pleural effusions 4. depression - improving.....making better eye contact and she is not as sleepy. Still very weak and requiring a lot of assistance Doreen realizes she is not going to be able to go home when she is discharged from rehab. She is OK with this. She still maintains she wants to stop drinking. Continue the PPN to keep caloric intake at about 1500 calories a day. AlB 25 GM X 1 today followed by 2o mg of IV Lasix Recheck a BMP and mag in the AM Continue the Sertraline and the Elavil Continue the high dose thiamine Inpatient E&M: [id number] Subs Hosp L2
[2020-05-22] MEDS: Albumin Human 25% (100 mL) 25 GM/100 ML BAG IV (15:05)
[2020-05-22 16:21] LABS: Bedside Glucose 108 mg/dL (70-110)
[2020-05-22] MEDS: 0.9% Saline Lock 10 ML Syringe IV ×2 (17:22→21:46)
[2020-05-22] MEDS: Furosemide 20 MG/2 ML VIAL IV (17:22)
[2020-05-22 21:14] VITALS: BP 128/78; PULSE 102; RESP 18; TEMP 37.1; O2SAT 94
[2020-05-22] MEDS: Amitriptyline 25 MG Tablet PO (21:44)
[2020-05-22 22:10] LABS: Bedside Glucose 128 mg/dL (70-110)
[2020-05-22 22:30] VITALS: PULSE 102
[2020-05-23] MEDS: Na Biphos/Potassium Phosphate PACKET 1 PACKET PO ×3 (05:28→22:44)
[2020-05-23] MEDS: Acetaminophen 325 MG Tablet 650 MG PO ×3 (05:28→22:44)
[2020-05-23] MEDS: Menthol/Lanolin/Calamine/Znox 113 GM Tube 1 APPLIC TOPICAL ×3 (05:29→22:45)
[2020-05-23 06:41] LABS: Anion Gap 7 (5-15); BUN 13 mg/dL (7-18); BUN/Creat Ratio 32.4 RATIO (10-20); Calcium,Total 8.3 mg/dL (8.5-10.1); Chloride 105 mmol/L (98-107); EST Glomerular Filtration Rate 169 mL/min (>60); Est Glom Filt Rate - Afr Amer 204 mL/min (>60); Estimated Creatinine Clearance 41.69 ml/min; Glucose 114 mg/dL (74-106); Magnesium 2.2 mg/dL (1.6-2.6); Potassium 3.7 mmol/L (3.5-5.1); Sodium Level 138 mmol/L (136-145)
[2020-05-23 06:46] LABS: Bedside Glucose 110 mg/dL (70-110)
[2020-05-23 07:30] VITALS: BP 120/72; PULSE 107; RESP 16; TEMP 37.6; O2SAT 92
[2020-05-23] MEDS: Sertraline 50 MG Tablet PO (08:04)
[2020-05-23] MEDS: Calcium Carb/Vitamin D 1 TABLET Tablet PO ×2 (08:04→18:38)
--- NOTE | 2020-05-23 09:23 | PCM.PN.BLA ---
Progress Note Afebrile VSS -heart rate is persistently elevated and has ranged from 98-1 07 over the past 3 days. Blood pressure is within normal limits. Maintaining appropriate oxygen saturation on RA Oral intake on 05/22/2020 was 1335. Still incontinent of urine so I&O is not possible Weight today is 102.9 pounds which is down from 105 pounds and 3 ounces yesterday. Discussed with nursing - no problems that need addressed Reviewed the PT/OT/ST notes Medication list reviewed. All lab was personally reviewed today. Sodium is 138 and the potassium is 3.7. Serum bicarb is 26. BUN is 13 and the creatinine today 0.4. A magnesium is normal at 2.2 today. Review of blood sugars shows no hypoglycemia no blood sugar higher than 150. she can not even tell me what she would like to eat for lunch today. We have to make suggestions and then she will say what sounds good. the nurses or dietary has been putting in a diet for her because she can not. She is pleasant and she is more conversant than she was at admission. she is not as fatigued during the day and is sleeping less during the day H- increased resting HR, no MM and no gallop Lungs - diminished but, CTA ab - not distended + anasarca no focal neurologic deficits no calf apin Impressions 1. Severe malnutrition-she is drinking her Ensure but still not eating much. I told her to at least eat a few bites of the things on her plate......we are giving the Ensure between meals now and the credit and loan collections supervisor is going to take the Ensure off her trays 2. Wernicke's encephalopathy? I do not know how recently her son saw her to be able to say the confusion is new since she was admitted to the hospital. she is obviously malnourished and extremely weak and this has been going on for quite a while. We did not find out that she is a alcoholic until about 10days after admission to the hospital. We have no other family or friends to check this out with 3. anasarca due to severe hypoalbuminemia....more likely than not she also has pleural effusions but she denies SOB and orthopnea and her pulse ox is OK on RA 4. depression - improving a little ....making better eye contact and she is not as sleepy. Still very weak and requiring a lot of assistance. she needs psychotherapy if she is going to make any significant progress with depression/addiction DC the Accu-Cheks Continue the PPN 1 L daily Accurate account of what percentage of her meal she is eating Lasix 20 mg BID and Potassium 20 MEQ BID Continue the Thiamine supplementation IV she is tolerating the Elavil without somnolence during the day....consider increasing to 37.5 mg Q HS or to switching to Abilify which may help to stimulate the appetite as well as help her sleep Recheck CMP and a phos in the AM Albumin 25 GM today STROKE Vital Signs/Narrative: Vital Signs Pulse Resp BP Pulse Ox 05/23/20 09:16 107 H 16 120/72 92 Inpatient E&M: 98473 Subs Hosp L3
[2020-05-23 09:57] LABS: Albumin, Serum 2.3 g/dL (3.2-5.0)
[2020-05-23] MEDS: Furosemide 20 MG/2 ML VIAL IV ×2 (10:44→18:38)
[2020-05-23 10:53] VITALS: TEMP 37.3
[2020-05-23] MEDS: Albumin Human 25% (100 mL) 25 GM/100 ML BAG IV (11:41)
[2020-05-23 11:46] LABS: Bedside Glucose 96 mg/dL (70-110)
--- NOTE | 2020-05-23 14:40 | NURSING ---
pt uses call light and staff responds to assist pt at this time. pt noted to be on the floor on knees in front of recliner. prior to fall pt was sitting in recliner with PA attached. pt denies any areas or pain or discomfort. pt assisted into bed. pt assessed from head to toe, knees noted to be pink in color at this time. midline catheter still remains intact. vital signs stable. blood glucose assessed. pt remains alert to self and place. pt apologetic and states she was trying to get PJ's on. Pt has PA attached, call light within reach and hi-lo bed in low position with x3 siderails up. Dr. Rahman, Kristen- speaking unit assembler aware of fall. will continue to monitor pt for injury or distress.
[2020-05-23 14:45] VITALS: BP 114/70; PULSE 93; RESP 18; TEMP 37; O2SAT 100
[2020-05-23 15:12] LABS: Mucous, Urine 0 SEEN /hpf (<or=2+); Squamous Epithelial Cells - UA 0 SEEN /hpf (5-10)
[2020-05-23 15:26] LABS: Color, Urine Yellow (Yellow); Glucose, Dipstick Normal (Normal); Ketone-Dipstick Negative (Negative); Leukocyte Esterase-Dipstick 500 /ul (Negative); Nitrite-Dipstick Negative (Negative); Occult Blood-Urine 150 /ul (Negative); Protein-Dipstick 30 mg/dl (Negative); Urine Bilirubin Dipstick Negative (Negative); Urine Clarity Sl. Cloudy (Clear); Urine Urobilinogen Normal (Normal); Urine pH 6.5 (5.0 - 8.0)
[2020-05-23 15:30] LABS: Bedside Glucose 138 mg/dL (70-110)
[2020-05-23 15:38] LABS: White Blood Cells 50-100 SEEN /hpf (0-5)
[2020-05-23 15:39] LABS: Bacteria 1+ /hpf (None Seen); Red Blood Cells-Urine 0-5 SEEN /hpf (0-5)
[2020-05-23] MEDS: Potassium Chloride Oral Tablet 20 MEQ PO (18:37)
--- NOTE | 2020-05-23 19:19 | NURSING ---
ate only bites of each meal today. did drink 120cc of ensure at 1000, 1400, and 1800.
[2020-05-23 19:30] VITALS: BP 123/67; PULSE 105; RESP 18; TEMP 36.6; O2SAT 96
[2020-05-23] MEDS: 0.9% Saline Lock 10 ML Syringe IV ×2 (22:24→23:55)
[2020-05-23 22:30] VITALS: PULSE 105
[2020-05-23] MEDS: levoFLOXacin IV 250 MG/50 ML BAG 50 MG IV (22:43)
[2020-05-23] MEDS: Amitriptyline 25 MG Tablet PO (22:44)
[2020-05-23] MEDS: Senna/Docusate Sodium 1 Tablet 2 TABLET PO (22:44)
[2020-05-23 23:11] LABS: Bedside Glucose 121 mg/dL (70-110)
[2020-05-24] MEDS: Acetaminophen 325 MG Tablet 650 MG PO ×3 (05:59→22:23)
[2020-05-24] MEDS: Na Biphos/Potassium Phosphate PACKET 1 PACKET PO ×3 (05:59→22:24)
[2020-05-24] MEDS: Menthol/Lanolin/Calamine/Znox 113 GM Tube 1 APPLIC TOPICAL ×3 (05:59→22:24)
[2020-05-24 06:24] LABS: ALB/GLOB Ratio 0.7 RATIO (0.9-2.4); AST(SGOT) 32 U/L (15-37); Alanine Aminotransfer ALT/SGPT 22 U/L (13-56); Albumin, Serum 2.3 g/dL (3.2-5.0); Alkaline Phosphatase 280 U/L (45-117); Anion Gap 5 (5-15); BUN 13 mg/dL (7-18); BUN/Creat Ratio 44.4 RATIO (10-20); Calcium,Total 8.2 mg/dL (8.5-10.1); Chloride 103 mmol/L (98-107); Creatinine, Serum 0.29 mg/dL (0.55-1.02); EST Glomerular Filtration Rate 242 mL/min (>60); Est Glom Filt Rate - Afr Amer 293 mL/min (>60); Estimated Creatinine Clearance 41.69 ml/min; Globulin 3.2 g/dL (2.2-4.2); Glucose 98 mg/dL (74-106); Phosphorus 3.1 mg/dL (2.5-4.9); Potassium 3.4 mmol/L (3.5-5.1); Protein, Total 5.5 g/dL (6.4-8.2); Sodium Level 138 mmol/L (136-145)
[2020-05-24] MEDS: Potassium Chloride Oral Tablet 20 MEQ PO ×3 (08:13→16:16)
[2020-05-24] MEDS: Senna/Docusate Sodium 1 Tablet 2 TABLET PO (08:13)
[2020-05-24] MEDS: Sertraline 50 MG Tablet PO (08:13)
[2020-05-24] MEDS: Calcium Carb/Vitamin D 1 TABLET Tablet PO ×2 (08:13→16:16)
[2020-05-24] MEDS: Furosemide 20 MG/2 ML VIAL IV ×2 (08:16→16:17)
[2020-05-24] MEDS: 0.9% Saline Lock 10 ML Syringe IV ×4 (08:27→22:23)
[2020-05-24 10:00] VITALS: BP 123/68; PULSE 105; RESP 18; TEMP 36.7; TEMP 37.1; O2SAT 93
[2020-05-24] MEDS: Loperamide 2 MG Capsule PO ×2 (12:32→22:23)
[2020-05-24] MEDS: Potassium Chloride Oral Tablet 20 MEQ 40 MEQ PO (12:33)
[2020-05-24] MEDS: levoFLOXacin IV 250 MG/50 ML BAG 50 MG IV (13:54)
--- NOTE | 2020-05-24 15:05 | NURSING ---
pt found to have a skin tear to her rt forearm. pt stated I must of hit it on the rail. [id number], minimal bleeding. adaptic and Mepilex place.
[2020-05-24 18:59] VITALS: BP 116/75; PULSE 90; RESP 16; TEMP 36.1; O2SAT 96
[2020-05-24] MEDS: Amitriptyline 25 MG Tablet PO (22:24)
[2020-05-25] MEDS: Acetaminophen 325 MG Tablet 650 MG PO ×2 (04:48→14:23)
[2020-05-25] MEDS: Menthol/Lanolin/Calamine/Znox 113 GM Tube 1 APPLIC TOPICAL ×2 (04:48→14:22)
[2020-05-25] MEDS: Na Biphos/Potassium Phosphate PACKET 1 PACKET PO ×2 (04:48→14:22)
[2020-05-25 07:30] VITALS: BP 107/75; PULSE 90; RESP 18; TEMP 36.9; O2SAT 92
[2020-05-25] MEDS: Sertraline 50 MG Tablet PO (08:29)
[2020-05-25] MEDS: Calcium Carb/Vitamin D 1 TABLET Tablet PO ×2 (08:29→16:48)
[2020-05-25] MEDS: Potassium Chloride Oral Tablet 20 MEQ PO ×3 (08:30→17:00)
[2020-05-25] MEDS: levoFLOXacin IV 250 MG/50 ML BAG 50 MG IV (08:49)
--- NOTE | 2020-05-25 09:34 | TREXTCAR_ITS ---
- Diet 05/10/20 17:12 Diet: Regular - General Food consistency:: Regular Liquid Consistency:: Regular/Thin Type of Dietary Supplement:: Magic Cup Dessert Diet Comments: orange/pabon magic cup BID w/lunch & dinner - Routine Orders/Code Status Enema Type: Fleetz Enema Frequency: Daily PRN Suppository Type: Dulcolax 10mg Suppository Frequency: Daily PRN O2 Liters per Minute: 1-2 O2 Frequency: PRN Keep PO Greater than or Equal to (%): 90 Routine Lab Work: - - HH, BMP, mag, phos on 05-29-20 Code Status: Full Code - Wound(s) left hip Wound Type: Surgical Incision right elbow Wound Type: Skin Tear RFA Wound Type: Skin Tear - Therapies Weight Bearing: Weight bearing as tolerated - Problem/Diagnosis (1) Anxiety and depression Status: Chronic Comment: Since her passsed away from esophageal CA 2020 followed by the of her sister 1 month later (2) Hematochezia Status: Acute Comment: due to hemorrhoidal disease (3) Tobacco dependence Status: Chronic (4) Gallbladder sludge Status: Chronic (5) Renal cyst, right Status: Chronic (6) Macrocytic anemia Status: Chronic Comment: suspect related to ETOH abuse. (7) Metabolic acidosis Status: Acute (8) Hypocalcemia Status: Acute Comment: started on a supplement and Vitamin D (9) Abnormal LFTs Status: Chronic Comment: more likely than not due to ETOH abuse with fatty infiltration of the liver (10) Emphysema lung Status: Chronic Comment: With hyperinflation (11) Coronary artery calcification of bill [place] artery Status: Chronic (12) Fatty infiltration of liver Status: Chronic (13) Closed left hip fracture Status: Acute Comment: 05/08/20 (14) Hyponatremia Status: Suspected (15) Family history of breast cancer in first degree relative Status: Chronic (16) Severe protein-calorie malnutrition Status: Chronic (17) Hypophosphatemia Status: Resolved (18) Ketonuria Status: Acute (19) Anasarca Status: Acute (20) Hypoalbuminemia Status: Acute (21) Wernickes encephalopathy Status: Acute (22) Hypokalemia Status: Acute (23) Urinary tract infection due to Proteus Status: Acute (24) Delirium Status: Acute Comment: with hallucinations due to ETOH withdrawal (25) EtOH dependence Status: Chronic (26) Acute blood loss anemia Status: Acute (27) Physical debility Status: Acute Comment: acute on chronic due to fall with Fracture of the left hip on chronic debility due to ETOH dependence and severe protein calorie malnutrition (28) Status post open reduction and internal fixation (ORIF) of fracture Status: Acute (29) Insomnia Status: Chronic (30) Inanition Status: Chronic (31) Thrombocytopenia Status: Resolved Comment: More likely than not secondary to low molecular weight heparin +/- ETOH abuse - Allergies/Procedures Done in Hospital Allergies/Adverse Reactions: Allergies No Known Allergies Allergy (Verified 05/07/20 21:51) Procedures: - - midline placement for PPN - Type of Care/Length of Stay Estimated LOS: Convalescent Care Less Than 30 days Type of Care Needed: Skilled Rehab Potential: Good Prognosis: Fair - Additional Orders/Day of Discharge Additional Orders: She has major depression. She needs to follow up with a SW or a psychologist for counselling. Her was on hospice prior to dying and Doreen has never sought out any counselling from hospice but, this would be a good place to start. She will not select her menu. She has very particular tastes and if she does not like what is ordered for her she will not eat. She drinks chocolate Ensure 4 times a day. She has started to eat a little and she likes vegetable soup, grilled cheese, bagels, pizza, mac and cheese. She wants help to stop drinking and is willing to go to [facility] in [place] for support and counselling post DC from SNF. H&P will serve as current which was dated: 05/10/20 Day of Discharge: 05/25/20 - Dietary and Speech Recommendations Dietitian Recommendations/Changes: Continue regular diet; ensure enlive w/ medpass to encourage PO intake at meals. Will continue magic cup BID w/ lunch and dinner. - Follow Up Care Primary Care Physician: Yoandy Rousseau MD [Primary Care Provider] - Please follow up with your Primary Care Physician in: Dr. Yoandy Rousseau Please Follow Up With: Kyaw Ye MD When: Please Follow Up With: Hospice SW for psychotherapy Please Follow Up With: [facility] ETOH rehab after DC from SNF
[2020-05-25 10:13] LABS: Hematocrit 29.7 % (37-47); Hemoglobin 9.4 g/dL (12.0-15.0)
--- NOTE | 2020-05-25 10:30 | PCM.DC.SUM ---
Discharge Date and Diagnosis - Problem List Patient Problems: Active and Suspected Problems Closed left hip fracture (Acute) 05/08/20 Hyponatremia (Suspected) Hematochezia (Acute) due to hemorrhoidal disease Metabolic acidosis (Acute) Hypocalcemia (Acute) started on a supplement and Vitamin D Ketonuria (Acute) Anasarca (Acute) Hypoalbuminemia (Acute) Wernickes encephalopathy (Acute) Hypokalemia (Acute) Urinary tract infection due to Proteus (Acute) Delirium (Acute) with hallucinations due to ETOH withdrawal Acute blood loss anemia (Acute) Physical debility (Acute) acute on chronic due to fall with Fracture of the left hip on chronic debility due to ETOH dependence and severe protein calorie malnutrition Status post open reduction and internal fixation (ORIF) of fracture (Acute) Date of Admission: 05/10/20 Date of Discharge: 05/25/20 - Primary Discharge Diagnosis Acute Problems: Active Problems Physical debility (Acute) acute on chronic due to fall with Fracture of the left hip on chronic debility due to ETOH dependence and severe protein calorie malnutrition Closed left hip fracture (Acute) 05/08/20 Status post open reduction and internal fixation (ORIF) of fracture (Acute) Hematochezia (Acute) due to hemorrhoidal disease Metabolic acidosis (Acute) - resolved, due to starvation ketosis Hypocalcemia (Acute) started on a calcium supplement and Vitamin D Ketonuria (Acute) Anasarca (Acute) - due to severe protein calorie malnutrition with third spacing of fluids Severe Hypoalbuminemia with an albumin of 1.6(Acute) Wernickes encephalopathy (Acute) Hypokalemia (Acute) Urinary tract infection due to Proteus (Acute) Delirium (Acute) with hallucinations due to ETOH withdrawal and possibly acute Wernicke's encephalopathy Acute blood loss anemia (Acute) Heme + stool Suspected Problems: Suspected Problems - Secondary Discharge Diagnosis Chronic Problems: Chronic Problems Anxiety and depression (Chronic) Since her from esophageal CA early in 2019 followed by the of her sister 1 month later, exacerbated by isolation due to COVID pandemic Tobacco dependence (Chronic) Gallbladder sludge (Chronic) Renal cyst, right (Chronic) Macrocytic anemia (Chronic) suspect related to ETOH abuse. Abnormal LFTs (Chronic) more likely than not due to ETOH abuse with fatty infiltration of the liver Emphysema lung (Chronic) With hyperinflation Coronary artery calcification of [place] artery (Chronic) Fatty infiltration of liver (Chronic) Family history of breast cancer in first degree relative (Chronic) Severe protein-calorie malnutrition (Chronic) EtOH dependence (Chronic) Insomnia (Chronic) Inanition (Chronic) Hospital Course and Treatment Imaging Results: Clinical Impression(s) from Imaging Studies Brain CT 05/15/20 10:58 IMPRESSION: Chronic involutional changes of the brain. Electronically Signed: Jewel Tee MD at 12:40 EST , Service support , Laboratory Last Values WBC 7.5 K/mm3 (4.4-11.0) 05/19/20 07:10 RBC 3.18 M/mm3 (4.2-5.4) L 05/19/20 07:10 Hgb 9.4 g/dL (12.0-15.0) L 05/25/20 09:57 Hct 29.7 % (37-47) L 05/25/20 09:57 MCV 104.4 fL (81-99) H 05/19/20 07:10 MCH 33.6 pg (27.0-32.0) H 05/19/20 07:10 MCHC 32.2 g/dL (32-36) 05/19/20 07:10 RDW Std Deviation 72.2 fl (35.1-43.9) H 05/19/20 07:10 RDW Coeff of Alana 19.0 % (11.6-14.6) H 05/19/20 07:10 Plt Count 325 K/mm3 (150-450) 05/19/20 07:10 MPV 9.9 fl (6.2-12.0) 05/19/20 07:10 Differential Comment SCANNED 05/19/20 07:10 ESR 15 mm/hr (0-30) 05/16/20 12:15 Sodium 142 mmol/L (136-145) 05/25/20 09:57 Potassium 3.9 mmol/L (3.5-5.1) 05/25/20 09:57 Chloride 109 mmol/L (98-107) H 05/25/20 09:57 Carbon Dioxide 26.0 mmol/L (21.0-32.0) 05/25/20 09:57 Anion Gap 7 (5-15) 05/25/20 09:57 BUN 10 mg/dL (7-18) 05/25/20 09:57 Creatinine 0.43 mg/dL (0.55-1.02) L 05/25/20 09:57 Estim Creat Clear Calc 40.36 ml/min 05/25/20 09:57 Est GFR (MDRD) Af Amer 189 mL/min (>60) 05/25/20 09:57 Est GFR (MDRD) Non-Af 157 mL/min (>60) 05/25/20 09:57 BUN/Creatinine Ratio 23.4 RATIO (10-20) H 05/25/20 09:57 Glucose 102 mg/dL (74-106) 05/25/20 09:57 Calcium 8.5 mg/dL (8.5-10.1) 05/25/20 09:57 Phosphorus 3.1 mg/dL (2.5-4.9) 05/24/20 05:45 Magnesium 2.2 mg/dL (1.6-2.6) 05/23/20 05:53 Total Bilirubin 0.50 mg/dL (0.20-1.00) 05/24/20 05:45 AST 32 U/L (15-37) 05/24/20 05:45 ALT 22 U/L (13-56) 05/24/20 05:45 Alkaline Phosphatase 280 U/L (45-117) H 05/24/20 05:45 Total Protein 5.5 g/dL (6.4-8.2) L 05/24/20 05:45 Albumin 2.3 g/dL (3.2-5.0) L 05/24/20 05:45 Globulin 3.2 g/dL (2.2-4.2) 05/24/20 05:45 Albumin/Globulin Ratio 0.7 RATIO (0.9-2.4) L 05/24/20 05:45 Triglycerides 109 mg/dL (-199) 05/19/20 07:10 Urine Color Yellow (Yellow) 05/23/20 14:45 Urine Clarity Sl. Cloudy (Clear) 05/23/20 14:45 Urine pH 6.5 (5.0 - 8.0) 05/23/20 14:45 Ur Specific [place] 1.010 (1.002-1.030) 05/23/20 14:45 Urine Protein 30 mg/dl (Negative) H 05/23/20 14:45 Urine Glucose (UA) Normal mg/dl (Normal) 05/23/20 14:45 Urine Ketones Negative mg/dl (Negative) 05/23/20 14:45 Urine Occult Blood 150 /ul (Negative) H 05/23/20 14:45 Urine Nitrite Negative (Negative) 05/23/20 14:45 Urine Bilirubin Negative mg/dL (Negative) 05/23/20 14:45 Urine Urobilinogen Normal mg/dl (Normal) 05/23/20 14:45 Ur Leukocyte Esterase 500 /ul (Negative) H 05/23/20 14:45 Urine RBC 0-5 SEEN /hpf (0-5) 05/23/20 14:45 Urine WBC 50-100 SEEN /hpf (0-5) 05/23/20 14:45 Ur Squamous Epith Cells 0 SEEN /hpf (5-10) 05/23/20 14:45 Amorphous Sediment RARE 05/11/20 06:10 Urine Bacteria 1+ /hpf (None Seen) 05/23/20 14:45 Urine Mucus 0 SEEN /hpf (<or=2+) 05/23/20 14:45 POC Glucose 121 mg/dL (70-110) H 05/23/20 22:35 Microbiology 05/23/20 14:45 Urine Catheter - Catheter Urine Culture - Final Proteus vulgaris sensitive to Levaquin, R to ampicillin, cefazolin and nitrofurantoin. 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 Hyponatremia since February 2020 and hematochezia who fell onto her left hip on 05/08/20 (she does not know what happened) and sustained a severely displaced left intertrochanteric hip fracture. She underwent ORIF with placement of a cephalomedullary nail on 05/08/[address] Kyaw Ye. She was transferred to the acute inpatient rehab unit at [facility] on 05/09/2020 for greater than 3 hours of therapy daily to restore her at or near her prior level of function. At presentation to the hospital she had metabolic acidosis (likely due to starvation ketosis). Urine was + for ketones. She was seen and evaluated by the dietitian during her acute hospital stay and diagnosed with severe protein calorie malnutrition. Oral nutritional supplements were ordered. Raji admitted to being depressed since her about 1 year prior to admission to rehab. Her sister just 1 month after her . Her was on hospice when he passed but, Doreen never took advantage of the counselling services offered to the family by hospice after the patient passes away. She had never had psychotherapy in the past. Dr. Rousseau had placed her on Remeron for 1 month but, Doreen did not think this was helping and she never refilled the RX after the first month. When Doreen first came to rehab she was quite confused and was having visual hallucinations for the first few days. She denies any ETOH use to me and also to Dr. Alfaro when she was admitted to the acute side of the hospital. 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 He also reported that the confusion was new and she was managing her own finances and her ADL's fine prior to admission to the hospital. She was started on thiamine at that time for possible Wernicke's encephalopathy. She was also started on Sertraline at 25 mg daily. Doreen complained that she was not sleeping well at night and this had been going on for quite some time. Elavil 25 mg was added at HS to help with depression and insomnia. ST saw her daily for cognitive dysfunction. She tolerated the Sertraline without any adverse side effects and the dose was increased to 50 mg daily after several days. she started at least drinking Ensure 4 times a day but food intake failed to improve. She was started on PPN to supplement her caloric intake and keep it at about 1500 calories daily to avoid refeeding S. Unfortunately the ALB was only 1.6 and with the increased fluids she developed edema with wt gain. She was given IV albumin and diuresed with Lasix. The edema is improving and her weight is decreasing slowly. She is chronically incontinent of urine and I&O's are inaccurate. A urine was checked on 05/23/2020 due to a mildly elevated temperature and the UA revealed 50-100 WBCs per high-power field with 1+ bacteria. It was a straight cath specimen. She was started on Levaquin 250 mg p.o. daily. Urine culture grew Proteus vulgaris which was resistant to ampicillin, cefazolin and nitrofurantoin. It was sensitive to Levaquin and she was placed on a 7-day course of treatment. Doreen is very weak and still has significant cognitive dysfunction although this has showed some improvement. Prior to discharge she was able to a send and descend 2 small steps with minimal assistance and 2 handrails. She has been able to ambulate 20 feet at contact-guard assist with a wheeled walker prior to discharge. She completed 3 sit to stands in 30 seconds. She requires verbal cueing for hand placement during sit to stand transfers. At discharge she was supervision/set up for grooming and required only minimal assistance with bathing. She required minimal assistance for upper body dressing but maximum assistance with lower body dressing. She requires max assistance with toileting and moderate assistance with toilet transfer onto the [facility]. On 05/24/2020 she continued to require maximal assistance completing attention and organization tasks such as check register and check writing. She continues to have severe impairment in basic attention and organizational skills. On 05/24/2020 she was not oriented to day, month, date, year or place. Continued skilled speech therapy services were recommended at discharge along with PT/OT. She continues to eat only a few bites of some meals and at others she just moves the food around the plate. We have discontinued Elavil and started her on Abilify in addition to the Sertraline prior to DC./ Abilify will help her sleep as well as stimulate appetite. She needs psychotherapy for major depression as well as counselling for substance abuse. I can not say with any certainty if the cognitive dysfunction is due to Wernicke's encephalopathy related to receiving glucose prior to thiamine supplementation in this alcoholic or if it is due to major depression. It is likely multifactorial. At this point in time she is unable to care for herself and she was discharged to [facility] on 05/25/20 for continued OT/PT/ST. She has expressed to me that she does not want to and she wants help with ETOH cessation. Alert, pleasant, making better eye contact than at admission. Oriented to person only. NAD appears older than her stated age. Lungs - diminished throughout with no rales, rhonchi, wheezes. She is not tachypneic and has no conversational dyspnea. Heart-regular rate and rhythm, no murmurs, no ectopy, no rub, no gallop She has pitting edema of the extremities that is improving. The incision is intact with no evidence of infection. The incision and the area around it is swollen. She has many bruises in various stages of healing. Generalized weakness throughout, no focal neurologic deficits. This note was generated with [employer]ation software. It may contain incorrect words, spelling, and punctuation that were not noted in checking the note before signing. Patient Problems: Active and Suspected Problems Closed left hip fracture (Acute) 05/08/20 Hyponatremia (Suspected) Hematochezia (Acute) due to hemorrhoidal disease Metabolic acidosis (Acute) Hypocalcemia (Acute) started on a supplement and Vitamin D Ketonuria (Acute) Anasarca (Acute) Hypoalbuminemia (Acute) Wernickes encephalopathy (Acute) Hypokalemia (Acute) Urinary tract infection due to Proteus (Acute) Delirium (Acute) with hallucinations due to ETOH withdrawal Acute blood loss anemia (Acute) Physical debility (Acute) acute on chronic due to fall with Fracture of the left hip on chronic debility due to ETOH dependence and severe protein calorie malnutrition Status post open reduction and internal fixation (ORIF) of fracture (Acute) - Physical Exam Vitals/I&O's: Vital Signs Temp Pulse Resp BP Pulse Ox 96.9 F L 90 16 116/75 96 05/24/20 18:59 05/24/20 18:59 05/24/20 18:59 05/24/20 18:59 05/24/20 18:59 Oxygen Delivery Method Room Air Weight: 101 lb 13.657 oz Body Mass Index (BMI) 19.8 Orthostatic Vital Signs Start: 05/16/20 11:39 Freq: Status: Active Protocol: Activity Type Activity Date Activity User E-Sign Co-Sign Detail Recorded Client Recorded Date Recorded By Document 05/19/20 05:23 [facility] [id number] 05/19/20 05:35 [facility] 05/19/20 05:23 Orthostatic Vitals Standing -Blood Pressure (90/60-120/80 mm Hg) 113/84 H -Extremity Use Left Arm -Pulse Rate (60-100 beats/min) 109 H Sitting -Blood Pressure (90/60-120/80 mm Hg) 124/72 H -Extremity Use Left Arm -Pulse Rate (60-100 beats/min) 97 Lying -Blood Pressure (90/60-120/80 mm Hg) 125/71 H -Extremity Use Left Arm -Pulse Rate (60-100 beats/min) 90 Intake and Output for Last 24 Hours 05/23/20 05/24/20 05/25/20 23:59 23:59 23:59 Intake Total 1485.2 / 1485.2 170 / 170 Output Total 250 / 250 Balance 1235.2 / 1235.2 170 / 170 Microbiology Past 72 Hours 05/23/20 14:45 Urine Catheter - Catheter Urine Culture - Final Proteus vulgaris 05/23/20 05:53 Interface Orders SARS-CoV-2 Antigen (Rapid) - Final Laboratory Results 05/25/20 09:57: Sodium Pending, Potassium Pending, Chloride Pending, Carbon Dioxide Pending, Anion Gap Pending, BUN Pending, Creatinine Pending, Est GFR (MDRD) Af Amer Pending, Est GFR (MDRD) Non-Af Pending, BUN/Creatinine Ratio Pending, Glucose Pending, Calcium Pending 05/25/20 09:57: Hgb 9.4 L, Hct 29.7 L Current Medications Acetaminophen (Acetaminophen 325 Mg Tablet) 650 mg PO Q8 [facility] Last Admin: 05/25/20 04:48 Dose: 650 mg Documented by: Amitriptyline HCl (Amitriptyline 25 Mg Tablet) 25 mg PO QHS [facility] Last Admin: 05/24/20 22:24 Dose: 25 mg Documented by: Bisacodyl (Bisacodyl 10 Mg Suppository) 10 mg RECTAL .PRN X 1 PRN PRN Reason: Constipation Calamine/Phenol (Menthol/Lanolin/Calamine/Znox 113 Gm Tube) 1 applic TOPICAL TID [facility]; Protocol Last Admin: 05/25/20 04:48 Dose: 1 applicatio Documented by: Calcium/Vitamin D (Calcium Carb/Vitamin D 1 Tablet Tablet) 1 tablet PO BIDCM [facility] Last Admin: 05/25/20 08:29 Dose: 1 tablet Documented by: Furosemide (Furosemide 20 Mg/2 Ml Vial) 20 mg IV BID@1000,1800 [facility] Last Admin: 05/24/20 16:17 Dose: 20 mg Documented by: Thiamine HCl 250 mg/ Sodium (Chloride) 52.5 mls @ 105 mls/hr IV DAILY [facility] Stop: 05/27/20 10:01 Last Admin: 05/25/20 10:14 Dose: 105 mls/hr Documented by: Levofloxacin (Levaquin Iv) 250 mg in 50 mls @ 50 mls/hr IV DAILY [facility] Last Infusion: 05/25/20 10:19 Dose: Infused Documented by: Sodium Chloride () 250 mls @ 15 mls/hr IV .[id number] PRN PRN Reason: Saline Flush Sodium Chloride () 250 mls @ 15 mls/hr IV .[id number] PRN PRN Reason: Additional IVPB Infusion Loperamide HCl (Loperamide 2 Mg Capsule) 2 mg PO Q2H PRN PRN PRN Reason: Diarrhea Last Admin: 05/24/20 22:23 Dose: 2 mg Documented by: Magnesium Hydroxide (Magnesium Hydroxide 30 Ml Udc) 30 ml PO .PRN X 1 PRN PRN Reason: Constipation Nutritional Formula (Lactose Free) (Ensure Enlive 120 Ml Liquid) 120 ml PO 4X/DAY [facility] Last Admin: 05/25/20 08:30 Dose: 120 ml Documented by: Potassium Chloride (Potassium Chloride Oral Tablet 20 Meq) 20 meq PO TIDCM [facility] Last Admin: 05/25/20 08:30 Dose: 20 meq Documented by: Potassium Phos/Sodium Phos (Na Biphos/Potassium Phosphate Packet) 1 packet PO TID [facility] Last Admin: 05/25/20 04:48 Dose: 1 packet Documented by: Senna/Docusate Sodium (Senna/Docusate Sodium 1 Tablet) 2 tablet PO BID [facility] Last Admin: 05/25/20 08:31 Dose: Not Given Documented by: Sertraline HCl (Sertraline 50 Mg Tablet) 50 mg PO DAILY [facility] Last Admin: 05/25/20 08:29 Dose: 50 mg Documented by: Sodium Chloride (0.9% Saline Lock 10 Ml Syringe) 10 - 40 ml IV UD PRN PRN Reason: SALINE FLUSH Last Admin: 05/24/20 22:23 Dose: 10 ml Documented by: Thiamine HCl (Thiamine Hydrochloride 100 Mg Tablet) 100 mg PO BIDCM [facility] Home Medications: Medications to take at Discharge Acetaminophen [Tylenol Tablet] 650 mg PO Q4H PRN PRN tab 05/10/20 Calcium Carb/Vitamin D [Os-Abner 500MG + D] 1 tab PO BIDCM 05/10/20 Aripiprazole [Abilify] 2 mg PO QHS #1 tab 05/25/20 Bisacodyl [Dulcolax] 10 mg RECTAL .PRN X 1 PRN suppos. 05/25/20 Furosemide [Lasix] 20 mg PO BIDLX #1 tab 05/25/20 Hydrocortisone Acetate [Anusol-Hc] 25 mg RC BID #10 supp.rect 05/25/20 Loperamide [Imodium] 2 mg PO Q2H PRN PRN cap 05/25/20 Magnesium Hydroxide [Milk Of Magnesia] 30 ml PO .PRN X 1 PRN udc 05/25/20 Menthol/Lanolin/Calamine/Znox [Calmoseptine Ointment] 1 applic TOPICAL TID tube 05/25/20 Potassium Chloride Oral Tablet [K-Dur] 20 meq PO BID tab 05/25/20 Sertraline HCl [Zoloft] 75 mg PO DAILY tab 05/25/20 Thiamine Hydrochloride [Vitamin B1] 100 mg PO BIDCM tab 05/25/20 levoFLOXacin tablet [Levaquin tablet] 250 mg PO DAILY #5 tab 05/25/20 Following Prescriptions Were Given to Patient: Aripiprazole [Abilify] 2 mg PO QHS #1 tab Hydrocortisone Acetate [Anusol-Hc] 25 mg RC BID #10 supp.rect Furosemide [Lasix] 20 mg PO BIDLX #1 tab levoFLOXacin tablet [Levaquin tablet] 250 mg PO DAILY #5 tab Primary Care Physician: Yoandy Rousseau MD [Primary Care Provider] - Please follow up with your Primary Care Physician in: Dr. Yoandy Rousseau Please Follow Up With: Kyaw Ye MD When: Please Follow Up With: Hospice SW for psychotherapy Please Follow Up With: [facility] E[facility] rehab after DC from SNF Disposition: [facility] facility [facility] Minutes spent on discharge:: 45 Patient Condition:: Poor Medical Necessity - Tobacco Use Smoking Status: Current every day smoker Tobacco Use: Cigarettes Meaningful Use Info Meaningful Use Diagnoses (Choose all that apply): None applicable Inpatient E&M: 82214 Disch Hosp
[2020-05-25 10:45] LABS: Anion Gap 7 (5-15); BUN 10 mg/dL (7-18); BUN/Creat Ratio 23.4 RATIO (10-20); Calcium,Total 8.5 mg/dL (8.5-10.1); Chloride 109 mmol/L (98-107); Creatinine, Serum 0.43 mg/dL (0.55-1.02); EST Glomerular Filtration Rate 157 mL/min (>60); Est Glom Filt Rate - Afr Amer 189 mL/min (>60); Estimated Creatinine Clearance 40.36 ml/min; Glucose 102 mg/dL (74-106); Potassium 3.9 mmol/L (3.5-5.1); Sodium Level 142 mmol/L (136-145)
[2020-05-25] MEDS: Furosemide 20 MG/2 ML VIAL IV ×2 (11:26→16:53)
[2020-05-25] MEDS: 0.9% Saline Lock 10 ML Syringe IV (16:54)
--- NOTE | 2020-05-25 17:00 | NURSING ---
SNF given report and patients daughter here for transport.
== END 2020-05-25 17:00 | disposition skilled nursing facility (03) | DRG 559 ==
PROVIDERS: Admitting Provider Internal Medicine; PCP Family Medicine; Visit Provider Internal Medicine
DX: S72.002D Fracture of unspecified part of neck of left femur, subsequent encounter for closed fracture with routine healing (principal); E43 Unspecified severe protein-calorie malnutrition; Z68.1 Body mass index [BMI] 19.9 or less, adult; K92.1 Melena; E51.2 Wernicke's encephalopathy; F10.239 Alcohol dependence with withdrawal, unspecified; E87.2 Acidosis; N39.0 Urinary tract infection, site not specified; Z16.11 Resistance to penicillins; W19.XXXD Unspecified fall, subsequent encounter; F32.9 Major depressive disorder, single episode, unspecified; F41.9 Anxiety disorder, unspecified; I25.10 Atherosclerotic heart disease of native coronary artery without angina pectoris; K76.0 Fatty (change of) liver, not elsewhere classified; F17.210 Nicotine dependence, cigarettes, uncomplicated; D69.6 Thrombocytopenia, unspecified; K82.8 Other specified diseases of gallbladder; B96.4 Proteus (mirabilis) (morganii) as the cause of diseases classified elsewhere; J44.9 Chronic obstructive pulmonary disease, unspecified; E87.6 Hypokalemia; R32 Unspecified urinary incontinence
CPT/HCPCS: 36415; 70450; 80048; 80053; 81001; 82040; 82274; 82962; 83630; 83735; 84100; 84478; 85014; 85018; 85027; 85652; 87077; 87086; 87088; 87186; 87426; 87506; 92507; 92523; 97110; 97116; 97129; 97130; 97162; 97166; 97530; 97535; 97802; 97803; 99251; 99406; J7040; P9047; A4216; G0463; J1940; J3490; J7799

== ENCOUNTER → 2020-09-03 14:02 | Outpatient (CLI) | payer MEDICARE, OTHER, SELFPAY ==
[2020-09-03 18:16] LABS: Hemoglobin 11.6 g/dL (12.0-15.0); Mean Corp Hgb Conc 30.5 g/dL (32-36); Mean Corpuscular Hgb 28.9 pg (27.0-32.0); Mean Corpuscular Volume 94.5 fL (81-99); Mean Platelet Vol. 10.2 fl (6.2-12.0); Platelet Count 504 K/mm3 (150-450); RBC Distribution Width CV 14.2 % (11.6-14.6); RBC Distribution Width SD 49.1 fl (35.1-43.9); Red Blood Count 4.02 M/mm3 (4.2-5.4); White Blood Count 10.5 K/mm3 (4.4-11.0)
[2020-09-03 18:22] LABS: Anion Gap 10 (5-15); BUN 5 mg/dL (7-18); BUN/Creat Ratio 9.7 RATIO (10-20); Calcium,Total 9.3 mg/dL (8.5-10.1); Chloride 104 mmol/L (98-107); Creatinine, Serum 0.52 mg/dL (0.55-1.02); EST Glomerular Filtration Rate 126 mL/min (>60); Est Glom Filt Rate - Afr Amer 152 mL/min (>60); Glucose 74 mg/dL (74-106); Potassium 4.2 mmol/L (3.5-5.1); Sodium Level 138 mmol/L (136-145)
== END ==
PROVIDERS: Nurse Practitioner Family; PCP Family Medicine; Visit Provider Family Medicine
DX: R53.83 Other fatigue (principal)
CPT/HCPCS: 36415; 80048; 85027

== ENCOUNTER → 2021-01-10 12:46 | Outpatient (CLI) | payer MEDICARE, SELFPAY ==
--- NOTE | 2021-01-10 12:51 | CDU_ITS ---
Reason For Study: left carotid bruit Rt. Velocities/BP Lt. Velocities/BP Prox CCA 59.1/12.1 cm/sec. Prox CCA 79.6/21.1 cm/sec. Mid CCA 49.9/12.1 cm/sec. Mid CCA 72.1/19.2 cm/sec. Dist CCA 48.7/10.2 cm/sec. Dist CCA 58.9/19.2 cm/sec. Prox ICA 52.5/20.2 cm/sec. Prox ICA 67.4/20.1 cm/sec. Mid ICA 70.3/21.2 cm/sec. Mid ICA 74.0/25.8 cm/sec. Dist ICA 110.9/32.3 cm/sec. Dist ICA 74.9/31.5 cm/sec. Rt. ICA/CCA = 2.2. Lt. ICA/CCA = 1.0. Prox ECA 137.5/18.8 cm/sec. Prox ECA 57.0/13.5 cm/sec. Rt. Vert. 34.3/9.9 cm/sec. Lt. Vert. 55.1/20.1 cm/sec. Right Extracranial There is heterogeneous, irregular atherosclerotic plaque noted in the right common carotid artery. There is heterogeneous, irregular atherosclerotic plaque noted in the right internal carotid artery. There is homogeneous, smooth atherosclerotic plaque noted in the right external carotid artery. Antegrade flow is noted in the right vertebral artery. Left Extracranial There is heterogeneous, irregular atherosclerotic plaque noted in the left common carotid artery. There is intimal thickening but no significant atherosclerotic plaque noted in the left internal carotid artery. There is heterogeneous, irregular atherosclerotic plaque noted in the left external carotid artery. Antegrade flow is noted in the left vertebral artery. Procedure Carotid Duplex [id number]. This is a Carotid Duplex examination using B-mode, color flow and specral Doppler. The exam was diagnostic. Exam performed in department. VL/Carotid Duplex Ultrasound Interpretation Summary Mild (<50%) stenosis right extracranial internal carotid. No significant athero sclerotic plaque or stenosis noted in the left internal carotid artery. Flow within the vertebral a rteries is antegrade bilaterally. Ordering Physician: Amalia Han Performed By: Fredy Bates RVT
== END ==
PROVIDERS: PCP Registered Nurse; Referring Provider Registered Nurse; Visit Provider Registered Nurse
DX: R09.89 Other specified symptoms and signs involving the circulatory and respiratory systems (principal)
CPT/HCPCS: 93880

== ENCOUNTER → 2021-01-29 13:17 | Outpatient (CLI) | payer MEDICARE, SELFPAY ==
--- NOTE | 2021-01-29 13:21 | BI_ITS ---
MAMMOGRAPHY - BILATERAL SCREENING REASON FOR EXAM: Female, 65 years old. Routine annual screening examination. PERTINENT HISTORY: Non-contributory. TECHNIQUE: Digital bilateral breast mark (3D mammographic acquisition) in the CC and MLO projections. 2-D mediolateral oblique (MLO) and craniocaudad (CC) views of both breasts were obtained. CAD: Full Field Digital Mammography with Computer Added Detection was performed. COMPARISON: Comparison is made with prior outside examination of 12/27/2013. FINDINGS: Breast Composition: The breasts are heterogeneously dense, which may obscure small masses. There are no dominant masses or suspicious calcifications. No other significant abnormalities are identified. There has been no significant change since the prior study. BI/SCRN MAMM (CAD)W/MARK BILAT IMPRESSION: Stable bilateral screening mammogram. Yearly follow-up mammogram recommended. (A) ASSESSMENT CATEGORY: BIRADS Category 1: Negative. A letter regarding these results will be sent to the patient by the facility within 30 days. Approximately 10% of breast cancers are not detected by mammography. A normal mammogram should not delay biopsy of a clinically suspicious abnormality. [id number] Electronically Signed: Jewel Tee MD at 15:10 EST , Service support ,
--- NOTE | 2021-01-29 13:25 | BD_ITS ---
STUDY: DUAL ENERGY X-RAY ABSORPTIOMETRY / DXA REASON FOR EXAM: Female, 65 years old. [id number] TECHNIQUE: Bone Mineral Density (BMD) measurements of lumbar spine and right hip were obtained. COMPARISON: None. FINDINGS: Lumbar Spine (L1-L4): g/cm2 (0.847) / T-score (-2.1) / Z-score (-0.1) Findings are suggestive of osteopenia with a high fracture risk. Right Femur Total: g/cm2 (0.453) / T-score (-4.0) / Z-score (-2.6) Right Femoral Neck: g/cm2 (0.457) / T-score (-3.5) / Z-score (-1.9) BD/Dexa Bone Density Study IMPRESSION: The patient is considered osteoporotic as outlined below according to World [employer] Organization (WHO) criteria with a high fracture risk. Reference Information: The T-score is the number of standard deviations above or below the standard which is normal for young adults at their peak bone mineral density. The World Health Organization (WHO) interprets the T-scores as follows: Above -1 Normal bone density Between -1 and -2.5 Osteopenia Equal to / or below -2.5 Osteoporosis As a practical clinical guideline, osteopenia may be graded as follows: Mild -1 through -1.5 Moderate -1.6 through -2.0 Severe -2.1 through -2.4 The Z-score is the number of standard deviations above or below age-matched controls. A Z-score of less than -1.5 would be considered abnormal. References: 1. NIH Osteoporosis and Related Bone Diseases www osteo.org 2. International Society for Clinical Densitometry www iscd.org 3. National Osteoporosis Foundation www nof.org Electronically Signed: Jewel Tee MD at 14:59 EST , Service support ,
== END ==
PROVIDERS: PCP Registered Nurse; Referring Provider Family Medicine; Visit Provider Family Medicine
DX: Z12.31 Encounter for screening mammogram for malignant neoplasm of breast (principal); Z78.0 Asymptomatic menopausal state
CPT/HCPCS: 77063; 77067; 77080

== ENCOUNTER 2021-05-23 11:17 | Outpatient (CLI) | payer MEDICARE, SELFPAY ==
[2021-05-23 15:35] LABS: Anion Gap 5 (5-15); BUN 9 mg/dL (7-18); BUN/Creat Ratio 15.5 RATIO (10-20); Calcium,Total 9.4 mg/dL (8.5-10.1); Chloride 107 mmol/L (98-107); Cholesterol 203 mg/dL (200); Creatinine, Serum 0.58 mg/dL (0.55-1.02); EST Glomerular Filtration Rate 110 mL/min (>60); Est Glom Filt Rate - Afr Amer 133 mL/min (>60); Glucose 92 mg/dL (74-106); High Density Lipoprotein 46 mg/dL; Potassium 3.9 mmol/L (3.5-5.1); Sodium Level 140 mmol/L (136-145); Triglycerides 186 mg/dL; Very Low Density Lipoprotein 37 mg/dL (5-40)
== END 2021-05-23 23:59 | disposition home or self-care (01) ==
LOC: MTLAB 11:19
PROVIDERS: PCP Registered Nurse; Referring Provider Registered Nurse; Visit Provider Registered Nurse
DX: I65.21 Occlusion and stenosis of right carotid artery (principal)
CPT/HCPCS: 36415; 80048; 80061

== ENCOUNTER 2022-02-17 09:26 | Outpatient (CLI) | payer MEDICARE, SELFPAY ==
[2022-02-17 10:30] LABS: ALB/GLOB Ratio 1.1 RATIO (0.9-2.4); AST(SGOT) 17 U/L (15-37); Alanine Aminotransfer ALT/SGPT 19 U/L (13-56); Albumin, Serum 3.8 g/dL (3.2-5.0); Alkaline Phosphatase 120 U/L (45-117); Anion Gap 7 (5-15); BUN 4 mg/dL (7-18); BUN/Creat Ratio 7.1 RATIO (10-20); Calcium,Total 9.4 mg/dL (8.5-10.1); Chloride 106 mmol/L (98-107); Cholesterol 222 mg/dL (200); Creatinine, Serum 0.57 mg/dL (0.55-1.02); EST Glomerular Filtration Rate 113 mL/min (>60); Est Glom Filt Rate - Afr Amer 136 mL/min (>60); Globulin 3.4 g/dL (2.2-4.2); Glucose 88 mg/dL (74-106); High Density Lipoprotein 49 mg/dL; Protein, Total 7.2 g/dL (6.4-8.2); Sodium Level 139 mmol/L (136-145); Triglycerides 107 mg/dL; Very Low Density Lipoprotein 21 mg/dL (5-40)
== END 2022-02-17 23:59 | disposition home or self-care (01) ==
LOC: MFPLAB 09:29
PROVIDERS: PCP Registered Nurse; Visit Provider Family Medicine
DX: I65.29 Occlusion and stenosis of unspecified carotid artery (principal)
CPT/HCPCS: 36415; 80053; 80061

== ENCOUNTER → 2022-07-23 | Outpatient (CLI) | payer MEDICARE, SELFPAY ==
--- NOTE | 2022-07-23 13:00 | LES_PTH ---
PATIENT: LC CASH LOC: [facility]#:[id number] AGE/SX: 67/F ROOM: RE07/23/[address]: Dr. Hussain Richard MD : 1955 BED: DIS: 07/23/2022 SPEC #: [id number] RECD: 07/23/22 14:32 STATUS: JOSE REJohn #: [id number] MARCELA: 07/23/22 13:[address]: Hussain Richard DEPT: SURGICAL PATHOLOGY RECD BY: Brittney Trevino ENTERED: 07/24/22 09:45 SP TYPE: Lesion OTHR DR: Amalia Han, DATA WAREHOUSING ENGINEER-C Tissues: A - Skin of face, NOS B - Skin of face, NOS Procedures: Surgery Specimen Level III Surgery Specimen Level IV HEADER OPERATION: Shave biopsy forehead and excision left cheek PRE-OP DIAGNOSIS: Skin lesion forehead and left cheek cyst TISSUE SUBMITTED: A ? Forehead, B ? Left cheek MICROSCOPIC DIAGNOSIS A. Forehead lesion, shave biopsy: Consistent with superficial portion of inflamed seborrheic keratosis with verrucous keratosis-like features. See comment. B. Left cheek lesion, excisional biopsy: Epidermal inclusion cyst. SJ:rg 07/25/2022 COMMENT A. The lesion appears to be transected at the deep margin. Clinical correlation and appropriate follow up are necessary. If there is a high suspicion of malignancy, re-biopsy is suggested if clinically indicated. MICROSCOPIC DESCRIPTION Slides are reviewed. GROSS DESCRIPTION A - Received in fixative is one container labeled with the patient's name and designated shave biopsy forehead skin lesion. The specimen consists of a biopsy of guerrero-brown skin measuring 0.5 x 0.4 x 0.1 cm. The specimen is inked, bisected and submitted entirely in one cassette. B - Received in fixative is one container labeled with the patient's name and designated left cheek cyst. The specimen consists of a piece of guerrero-white skin with underlying tissue measuring 0.6 x 0.3 cm and up to 0.3 cm in thickness. The specimen is inked, bisected and submitted entirely in one cassette. / SJ:edwin 07/24/2022 TC:5 CPT: 46920, 48121
== END | disposition home or self-care (01) ==
PROVIDERS: PCP Registered Nurse; Visit Provider Surgery
DX: L98.9 Disorder of the skin and subcutaneous tissue, unspecified (principal)
CPT/HCPCS: 88304; 88305

== ENCOUNTER → 2022-08-20 | Outpatient (CLI) | payer MEDICARE, SELFPAY ==
[2022-08-20 10:40] LABS: AST(SGOT) 14 U/L (15-37); Alanine Aminotransfer ALT/SGPT 15 U/L (13-56); Albumin, Serum 3.8 g/dL (3.2-5.0); Alkaline Phosphatase 94 U/L (45-117); Anion Gap 5 (5-15); BUN 10 mg/dL (7-18); Calcium,Total 9.6 mg/dL (8.5-10.1); Chloride 109 mmol/L (98-107); Cholesterol 139 mg/dL (200); Creatinine, Serum 0.59 mg/dL (0.55-1.02); EST Glomerular Filtration Rate 108 mL/min (>60); Est Glom Filt Rate - Afr Amer 130 mL/min (>60); Globulin 3.7 g/dL (2.2-4.2); Glucose 89 mg/dL (74-106); High Density Lipoprotein 53 mg/dL; Potassium 3.9 mmol/L (3.5-5.1); Protein, Total 7.5 g/dL (6.4-8.2); Sodium Level 141 mmol/L (136-145); Triglycerides 74 mg/dL; Very Low Density Lipoprotein 15 mg/dL (5-40)
== END | disposition home or self-care (01) ==
LOC: MFPLAB 09:05
PROVIDERS: PCP Family Medicine; Visit Provider Family Medicine
DX: E78.5 Hyperlipidemia, unspecified (principal)
CPT/HCPCS: 36415; 80053; 80061

== ENCOUNTER → 2023-02-24 | Outpatient (CLI) | payer MEDICARE, SELFPAY ==
--- NOTE | 2023-02-24 12:43 | BI_ITS ---
MAMMOGRAPHY - BILATERAL SCREENING REASON FOR EXAM: Female, 67 years old. Routine annual screening examination. PERTINENT HISTORY: Sister with breast cancer. Mother with breast cancer. TECHNIQUE: Digital bilateral breast mark (3D mammographic acquisition) in the CC and MLO projections. 2-D mediolateral oblique (MLO) and craniocaudad (CC) views of both breasts were obtained. CAD: Full Field Digital Mammography with Computer Added Detection was performed. COMPARISON: Comparison is made with prior study dated January 29, 2021. FINDINGS: Breast Composition: The breasts are heterogeneously dense, which may obscure small masses. There are no dominant masses or suspicious calcifications. No other significant abnormalities are identified. There has been no significant change since the prior study. BI/SCRN MAMM (CAD)W/MARK BILAT IMPRESSION: Stable bilateral screening mammogram. Yearly follow-up mammogram recommended. (A) ASSESSMENT CATEGORY: BIRADS Category 1: Negative. A letter regarding these results will be sent to the patient by the facility within 30 days. Approximately 10% of breast cancers are not detected by mammography. A normal mammogram should not delay biopsy of a clinically suspicious abnormality. [id number] Electronically Signed: Jewel Tee MD at 13:49 EST ,
--- NOTE | 2023-02-24 12:49 | BD_ITS ---
STUDY: DUAL ENERGY X-RAY ABSORPTIOMETRY / DXA REASON FOR EXAM: Female, 67 years old. V76.12ScreeningBONE DENSITY REASON FOR EXAM TECHNIQUE: Bone Mineral Density (BMD) measurements of lumbar spine and right hip were obtained. COMPARISON: Comparison is made with prior study January 29, 2021. FINDINGS: Lumbar Spine (L1-L4): g/cm2 (0.975) / T-score (-1.1) / Z-score (1.1) Findings are suggestive of osteopenia with a low fracture risk. Right Femur Total: g/cm2 (0.504) / T-score (-3.6) / Z-score (-2.1) Right Femoral Neck: g/cm2 (0.479) / T-score (-3.3) / Z-score (-1.6) The T-Scores on the most recent prior examination were: Lumbar Spine (L1-L4): There has been improvement of bone density since the previous examination. Left Femur Total: which represents an improvement of 11.2%. BD/Dexa Bone Density Study IMPRESSION: The patient is considered osteoporotic as outlined below according to World [employer] Organization (WHO) criteria with a high fracture risk. There has been improvement of bone density since the previous examination. Reference Information: The T-score is the number of standard deviations above or below the standard which is normal for young adults at their peak bone mineral density. The World Health Organization (WHO) interprets the T-scores as follows: Above -1 Normal bone density Between -1 and -2.5 Osteopenia Equal to / or below -2.5 Osteoporosis As a practical clinical guideline, osteopenia may be graded as follows: Mild -1 through -1.5 Moderate -1.6 through -2.0 Severe -2.1 through -2.4 The Z-score is the number of standard deviations above or below age-matched controls. A Z-score of less than -1.5 would be considered abnormal. References: 1. NIH Osteoporosis and Related Bone Diseases www osteo.org 2. International Society for Clinical Densitometry www iscd.org 3. National Osteoporosis Foundation www nof.org Electronically Signed: Jewel Tee MD at 12:15 EST ,
== END | disposition home or self-care (01) ==
LOC: OPBD 12:41
PROVIDERS: PCP Family Medicine; Referring Provider Family Medicine; Visit Provider Family Medicine
DX: Z00.00 Encounter for general adult medical examination without abnormal findings (principal); Z12.31 Encounter for screening mammogram for malignant neoplasm of breast; Z80.3 Family history of malignant neoplasm of breast; Z78.0 Asymptomatic menopausal state
CPT/HCPCS: 77063; 77067; 77080

== ENCOUNTER → 2023-04-08 | Outpatient (CLI) | payer MEDICARE, SELFPAY ==
--- OUTSIDE RECORDS SUMMARY | 2023-04-08 10:38 | XMS RPT_ITS | CCD ---
Author Name Unknown Address [facility] [facility] [address] [place] [address] Organization [facility] Results Test Name Value Interpretation Reference Range Facil ity Clinical Note 10-04-2020 Note Date & Type Note Facility 10-04-2020 Note Patient Outreach (IN [facility]) SHAILESHJENNIFERLC ([id number]) 1955 F Date Time Provider Department 10/04/20 [facility] IN[facility]TE During your visit today, we recorded the following information about you: Allergies As of Date: 10/04/2020 (No Known Allergies) Date Reviewed: 07/11/2020 Reviewed by: Elis Adames - Fully Assessed Visit Diagnosis:Encounter for screening mammogram for breast cancer [Z12.31] Order(s):[facility] SCREENING [[id number]] Order #: [id number] FUTURE Prescriptions as of 10/08/2020 - furosemide (LASIX) 20 mg tablet - Mirtazapine (REMERON) 7.5 mg tablet TAKE 1 TABLET BY MOUTH EVERYDAY AT BEDTIME - sertraline (ZOLOFT) 25 mg tablet - ARIPiprazole (ABILIFY) 2 mg tablet Take by mouth. - thiamine (VITAMIN B1) 100 mg tablet Take 100 mg by mouth once daily. - cyanocobalamin (VITAMIN B-12) 1,000 mcg tab Take 1 tablet by mouth once daily. - CALCIUM 600 W/D TABLET 600-200 PO Take one(1) tablet two(2) times daily. Problem List As Of Date 10/04/2020 Noted Resolved Fatigue [R53.83] 12/13/2013 01/18/2014 Anxiety [F41.9] 12/13/2013 Essential hypertension [I10] 12/28/2014 Vitamin D deficiency [E55.9] 12/28/2014 Encounter Status:Closed by [facility], PRODUSER on 10/08/20 [facility] Progress note 06-25-2020 Note Date & Type Note Facility 06-25-2020 Note HNO ID: [id number] Author: Judy Benson Service: ? Author Type: Physician Bank Vault Attendant Type: Progress Notes Filed: 07/02/2020 7:00 AM Note Text: HISTORY AND PHYSICAL Lc Morrison 1955 REFERRING PHYSICIAN: Chema Infante MD CHIEF COMPLAINT: No chief complaint on file. HPI: The patient is a 65 year old female referred for endoscopy. Lc notes a history of decreased appetite weight loss x several months. Symptoms started after losing her . Associated symptoms include loose stools. She states t one point she did see some blood in her stools, which has since resolved. Notes she was supposed to be referred for endoscopy previously, but then fell and broke her hip in May requiring surgery. She states that was done through [facility], tough I am not able to see records of this in [facility]. Patient notes her appetite is gradually starting toimprove, and she is starting to gain back some weight. She weighs 78 lbs today, states at one point she had been down to 60 lbs. Lc has not undergone prior endoscopy. 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 - thiamine (VITAMIN B1) 100 mg tablet Take 100 mg by mouth once daily. - cyanocobalamin (VITAMIN B-12) 1,000 mcg tab Take 1 tablet by mouth once daily. - CALCIUM 600 W/D TABLET 600-200 PO Take one(1) tablet two(2) times daily. - atenolol (TENORMIN) 50 mg tablet Take 1 tablet by mouth once daily. No current facility-administered medications for this visit. ALLERGIES: Patient has no known allergies. PERSONAL HISTORY: Social History Tobacco Use - Smoking status: Current Every Day Smoker Packs/day: 1.50 Years: 25.00 Pack years: 37.50 - Smokeless tobacco: Never Used Substance Use Topics - Alcohol use: Yes Alcohol/week: 25.0 standard drinks Types: 10 Cans of Beer (12oz) per week - Drug use: No FAMILY HISTORY: FAMILY HISTORY Problem Relation Age of Onset - Hypertension Mother - Coronary Artery Disease Mother - Breast Cancer Sister REVIEW OF SYMPTOMS: The review of systems data was entered by the nurse and reviewed by vt Nursing Notes: Nena Whitlock LPN 06/25/2020 1:48 PM Signed REVIEW OF SYSTEMS: General: The patient denies fatigue, NOTES weight loss, denies weight gain, denies feeling hot, and denies feelings of cold. Eyes: The patient denies glaucoma, denies eye injury/surgery, wears glasses or contacts. Ear/Nose/Throat: The patient denies allergies, denies hayfever, denies ear infections, and denies bloody noses. Cardiovascular: The patient denies chest pain, denies heart disease, denies high blood pressure,denies cardiac stent, denies prior heart attack, denies irregular heart beat, denies high cholesterol, denies poor circulation, denies heart failure, other cardiac issues, denies claudication, denies cold feet, denies peripheral arterial stent. Respiratory: The patient denies tuberculosis, denies pneumonia, denies frequent cough, denies pulmonary embolism, denies shortness of breath, and denies coughing up blood. Gastrointestinal: The patient denies difficulty swallowing, denies acid reflux, denies ulcers, denies vomiting, denies jaundice/hepatitis, denies gallbladder problems, denies black or tarry stools, denies hemorrhoids, denies bleeding from rectum, denies diverticulitis, denies constipation, denies diarrhea, denies loss of stool control, and denies hernias. Kidney/Bladder: The patient denies kidney stones, denies urine infections, and denies bloody urine. Skin: The patient denies a history of skin cancer, denies bleeding/changing moles, and denies a history of skin rash. Neurologic: The patient denies a history of epilepsy/convulsions, denies headaches, denies head/spinal injuries, and denies stroke/TIA. Psychiatric: The patient denies psychiatric medications, denies depression, and denies voices, denies substance abuse. Endocrine: The patient denies thyroid disorders, denies diabetes, and denies hormonal problems. Hematologic: The patient denies a history of bruising, denies bleeding, and denies anemia, denies blood clots. Infections: The patient denies a history of measles and mumps, denies rheumatic fever, and denies sexually transmitted diseases. Musculoskeletal: The patient denies back pain/injury, denies back problems, denies s (more content not included)... [facility] Progress note 05-18-2020 Note Date & Type Note Facility 05-18-2020 Note HNO ID: [id number] Author: Marii Barraza Ma Service: ? Author Type: ? Type: Progress Notes Filed: 05/18/2020 1:02 PM Note Text: sent letter to make f/u appt. [facility] Clinical Note 05-18-2020 Note Date & Type Note Facility 05-18-2020 Note Patient Outreach (FA [facility]) LC MORRISON ([id number]) 1955 F Date Time Provider Department 05/18/20 MARII BARRAZA) BASSAM During your visit today, we recorded the following information about you: Marii Barraza Ma 05/18/2020 1:02 PM Signed sent letter to make f/u appt. Allergies As of Date: 05/18/2020 (No Known Allergies) Date Reviewed: 04/17/2018 Reviewed by: Chema Infante - Fully Assessed Prescriptions as of 05/18/2020 Sig: ATENOLOL 50 MG TABLET Take 1 tablet by mouth once d* CYANOCOBALAMIN (VIT B-12) 1,0* Take 1 tablet by mouth once d* CALCIUM 600 WITH VITAMIN D2 6* Take one(1) tablet two(2) tami* Problem List As Of Date 05/18/2020 Noted Resolved Fatigue [R53.83] 12/13/2013 01/18/2014 Anxiety [F41.9] 12/13/2013 Essential hypertension [I10] 12/28/2014 Vitamin D deficiency [E55.9] 12/28/2014 Letter Text Encounter Status:Closed by MARII BARRAZA MA on 05/18/20 [facility] Summary Purpose Family History No Family History Records FoundNo Family History Records Found Advance Directives No Advanced Directives Records FoundNo Advanced Directives Records Found Additional Source Comments INFORMATION SOURCE (unrecogn ized section and content) DATE CREATED AUTHOR AUTHOR'S ORGANIZ ATION 04/26/2021 [facility] FOR RECORDS PERTAINING TO PATIENTS WHO ARE OR HAVE BEEN ENROLLED IN A CHEMICAL DEPENDENCY/SUBSTANCEABUSE PROGRAM, SOME INFORMATION MAY BE OMITTED. This clinical summary was aggregated from multiple sources. Caution should be exercised in using it in the provision of clinical care. This summary normalizes information from multiple sources, and as a consequence, information in this document may materially change the coding, format and clinical context of patient data. In addition, data may be omitted in some cases. CLINICAL DECISIONS SHOULD BE BASED ON THE PRIMARY CLINICAL RECORDS. [employer] [facility]. provides no warranty or guarantee of the accuracy or completeness of information in this document.
[2023-04-08 13:47] LABS: Anion Gap 2 (5-15); BUN 11 mg/dL (7-18); Calcium,Total 9.6 mg/dL (8.5-10.1); Chloride 107 mmol/L (98-107); Cholesterol 148 mg/dL (200); Creatinine, Serum 0.73 mg/dL (0.55-1.02); EST Glomerular Filtration Rate 83 mL/min (>60); Est Glom Filt Rate - Afr Amer 101 mL/min (>60); Glucose 101 mg/dL (74-106); High Density Lipoprotein 61 mg/dL; Potassium 3.7 mmol/L (3.5-5.1); Sodium Level 138 mmol/L (136-145); Triglycerides 67 mg/dL; Very Low Density Lipoprotein 13 mg/dL (5-40)
== END | disposition home or self-care (01) ==
LOC: MFPLAB 10:18
PROVIDERS: PCP Family Medicine; Visit Provider Family Medicine
DX: E78.5 Hyperlipidemia, unspecified (principal)
CPT/HCPCS: 36415; 80048; 80061

== ENCOUNTER → 2023-04-27 | Outpatient (CLI) | payer MEDICARE, SELFPAY ==
--- NOTE | 2023-04-27 12:39 | VDLE_ITS ---
Reason For Study: Bilateral leg pain RIGHT LEFT GSV is normal. GSV is normal. CFV is compressible, spontaneous, phasic, CFV is compressible, spontaneous, phasic, competent and demonstrates normal competent, and demonstrates normal augmentation. augmentation. FV is compressible, spontaneous, phasic, FV is compressible, spontaneous, phasic, competent and demonstrates normal competent and demonstrates normal augmentation. augmentation. POP V is compressible, spontaneous, phasic, POP V is compressible, spontaneous, phasic, competent and demonstrates normal competent and demonstrates normal augmentation. augmentation. T/P Trunk is compressible. T/P Trunk is compressible. PTV is compressible. PTV is compressible. RT PerV is compressible. LT PerV is compressible. Procedure This is a venous duplex using B-mode, color flow and spectral Doppler. Exam performed in department. VL/Venous Duplex US - Jordi Extrem Interpretation Summary Deep veins of the bilateral lower extremities are patent and compressible segme ntally. There is no evidence of bilateral lower extremity deep vein thrombosis. The bilateral great saphenous veins appear patent and compressible segmentally. Ordering Physician: Joey Brooke Referring Physician: Silvano Alfaro Performed By: Natalie Dudley RVT
--- NOTE | 2023-04-27 12:39 | ART_ITS ---
Reason For Study: Bilateral leg pain Procedure A bilateral lower extremity continuous wave Doppler with analog waveform analysis,segmental pressures,and ankle brachial indexes without exercise. Left Segmental Pressures Left brachial= 156mmHg. Left thigh = 181mmHg. Left calf = 145mmHg. Left posterior tibial artery = 148mmHg. Left dorsalis pedis artery = 152mmHg. Left digit = 120 mmHg. The left dorsalis pedis waveforms are triphasic. The left posterior tibial artery waveforms are triphasic. Right Segmental Pressures Right brachial= 161mmHg. Right thigh = 188mmHg. Right calf = 160mmHg. Right posterior tibial artery = 149mmHg. Right dorsalis pedis artery = 160mmHg. Right digit = 130 mmHg. The right dorsalis pedis waveforms are triphasic. The right posterior tibial artery waveforms are triphasic. Indices The right ankle brachial index by the dorsalis pedis is 0.99. The right ankle brachial index by the posterior tibial artery is 0.93. The right digital-brachial index is 0.81. The left ankle brachial index by the dorsalis pedis is 0.94. The left ankle brachial index by the posterior tibial artery is 0.92. The left digital-brachial index is 0.75. VL/Lower Ext Art Exam w/o Exercis Interpretation Summary Right AZEEM 0.99, mild arterial insufficiency. Doppler/PVR waveforms and segmenta l pressures do no reveal focal level of disease. Left AZEEM 0.94, mild arterial insufficiency. Doppler/PVR waveforms and segmental pressures reveal distal SFA/popliteal disease Ordering Physician: Joey Brooke Referring Physician: Silvano Alfaro Performed By: Natalie Dudley RVT
--- OUTSIDE RECORDS SUMMARY | 2023-04-27 12:58 | XMS RPT_ITS | CCD ---
Author Name Unknown Address [address] [place] [address] Organization [facility] Results Test Name Value Interpretation Reference Range Facil ity Clinical Note 10-04-2020 Note Date & Type Note Facility 10-04-2020 Note Patient Outreach (IN [facility]N) LC MORRISON ([id number]) 1955 F Date Time Provider Department 10/04/20 CHE[facility] INFANTE During your visit today, we recorded the following information about you: Allergies As of Date: 10/04/2020 (No Known Allergies) Date Reviewed: 07/11/2020 Reviewed by: Elis Adames - Fully Assessed Visit Diagnosis:Encounter for screening mammogram for breast cancer [Z12.31] Order(s):[facility] SCREENING [[id number]] Order #: [id number] FUTURE Prescriptions as of 10/08/2020 - furosemide [...] D deficiency [E55.9] 12/28/2014 Encounter Status:Closed by [facility], PRODUSER on 10/08/20 [facility] Progress note 06-25-2020 Note Date & Type Note Facility 06-25-2020 Note HNO ID: [id number] Author: Judy Benson Service: ? Author Type: Physician Senior Php Developer Type: Progress Notes Filed: 07/02/2020 7:00 AM [...] surgery. She states that was done through [facility], tough I am not able to see records of this in [facility]. Patient notes her appetite is gradually starting toimprove, and she is starting to gain back some weight. She weighs 78 lbs today, states at one point she had been down to 60 lbs. Lc has not undergone prior endoscopy. 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 [facility] Progress note 05-18-2020 Note Date & Type Note Facility 05-18-2020 Note HNO ID: [id number] Author: Marii Barraza Ma Service: ? Author Type: ? Type: Progress Notes Filed: 05/18/2020 1:02 PM Note Text: sent letter to make f/u appt. [facility] Clinical Note 05-18-2020 Note Date & Type Note Facility 05-18-2020 Note Patient Outreach (FA [facility]) LC MORRISON ([id number]) 1955 F Date Time Provider Department 05/18/20 [...] Status:Closed by MARII BARRAZA MA on 05/18/20 [facility] Summary Purpose Family History No Family History Records FoundNo Family History Records Found Advance Directives No Advanced Directives Records FoundNo Advanced Directives Records Found Additional Source Comments INFORMATION SOURCE (unrecogn ized section and content) DATE CREATED AUTHOR AUTHOR'S ORGANIZ ATION 04/26/2021 [facility] FOR RECORDS PERTAINING TO PATIENTS WHO [...] BE BASED ON THE PRIMARY CLINICAL RECORDS. [employer] [facility]. provides no warranty or guarantee of the accuracy or completeness of information in this document.
== END | disposition home or self-care (01) ==
LOC: CVS 12:38
PROVIDERS: PCP Family Medicine; Referring Provider Podiatrist Foot & Ankle Surgery; Visit Provider Podiatrist Foot & Ankle Surgery
DX: I73.9 Peripheral vascular disease, unspecified (principal); M79.605 Pain in left leg; M79.604 Pain in right leg
CPT/HCPCS: 93923; 93970

== ENCOUNTER → 2023-10-21 | Outpatient (CLI) | payer MEDICARE, SELFPAY ==
--- NOTE | 2023-10-21 12:45 | RAD_ITS ---
STUDY: X-RAY - LUMBAR SPINE REASON FOR EXAM: Female, 68 years old. Sciatica. TECHNIQUE: 4 view(s) of the lumbar spine were obtained. COMPARISON: None FINDINGS: Marked osteopenia. Normal lumbar lordosis. Moderate thoracolumbar scoliosis. 1.5 cm of anterolisthesis of L4 on L5. Diffuse lower thoracic and lumbosacral facet sclerosis. Endplate concavities compatible with osteoporosis. Diffuse intervertebral disc space narrowing with osteophyte formation. Vascular calcification and phleboliths. RAD/L/S Spine Min 4 Views IMPRESSION: Osteopenia with marked thoracolumbar scoliosis, grade 1 spondylolisthesis at L4-5 and diffuse moderate to marked lumbosacral spondylosis. Electronically Signed: Julian Borja MD at 10:28 EDT ,
== END | disposition home or self-care (01) ==
LOC: MTRAD 12:41
PROVIDERS: PCP Family Medicine; Referring Provider Family Medicine; Visit Provider Family Medicine
DX: M54.30 Sciatica, unspecified side (principal)
CPT/HCPCS: 72110

== ENCOUNTER 2023-12-12 11:09 | Emergency (ER) | payer MEDICARE, SELFPAY ==
[2023-12-12 11:12] VITALS: BP 174/98; PULSE 98; RESP 18; TEMP 36.9; O2SAT 96; BMI 17.9
[2023-12-12 11:14] VITALS: BP 185/136; PULSE 80; PULSE 81; RESP 17; TEMP 37.2; O2SAT 97
--- NOTE | 2023-12-12 11:40 | RAD_ITS ---
STUDY: X-RAY CHEST REASON FOR EXAM: Female, 68 years old. Cough TECHNIQUE: Frontal and lateral views of the chest COMPARISON: None. FINDINGS: The lungs are clear. There are no pleural effusions. There is no pneumothorax. The heart is normal in size. The visualized osseous structures are within normal limits. RAD/Chest PA and Lateral IMPRESSION: No acute thoracic pathology. Electronically Signed: Kyaw Angela MD at 13:42 EDT ,
--- NOTE | 2023-12-12 11:41 | CT_ITS ---
STUDY: CT ABDOMEN AND PELVIS WITHOUT CONTRAST REASON FOR EXAM: Female, 68 years old. Hypertension. Left flank pain. Nausea and vomiting. RADIATION DOSAGE (If Supplied By Facility): CTDIvol = ( 6.04 ) mGy, DLP = ( 244.60 ) mGycm TECHNIQUE: Transaxial images were obtained from the dome of the diaphragm to the symphysis pubis without oral contrast, and without intravenous contrast. Sagittal and coronal images were reconstructed. CT scan performed according to ALARA principles. Automated exposure control used during exam. COMPARISON: No relevant prior comparison study available FINDINGS: Evaluation of the abdominal viscera is limited in the absence of intravenous contrast. LOWER THORAX: The visualized lung bases are clear. The visualized portions of the heart and pericardium are within normal limits. There are coronary artery calcifications. GALLBLADDER / BILE DUCTS: There are no calcified gallstones present. The common bile duct is normal in caliber. There are no calcified ductal stones. LIVER: The liver demonstrates an unremarkable unenhanced appearance. SPLEEN: The spleen is normal in size. PANCREAS: The pancreas demonstrates an unremarkable unenhanced appearance. ADRENAL GLANDS: The adrenal glands are within normal limits. KIDNEYS / BLADDER: There are no renal or ureteral stones. There is no hydronephrosis. There are no focal renal lesions identified on this noncontrast exam. The urinary bladder is partially distended and appears grossly unremarkable. STOMACH / BOWEL: Normal visualized stomach. There is no bowel obstruction or inflammation. The appendix is visualized and appears normal. PERITONEUM / RETROPERITONEUM: There is no abdominal or pelvic free air, free fluid or fluid collection. There is no abnormal soft tissue mass identified. There is no abdominal or pelvic lymphadenopathy. VESSELS: There are atherosclerotic calcifications noted in the aorta and its branches. The aorta is normal in caliber. The IVC is unremarkable. BONES: There are degenerative changes noted in the spine. There are no destructive osseous lesions. SOFT TISSUES: The visualized soft tissues are within normal limits. CT/Abdomen/Pelvis without Cont IMPRESSION: No bowel obstruction or inflammation. Normal appendix. No urinary calculi. No hydronephrosis. Atherosclerosis and coronary artery disease. Electronically Signed: Kyaw Angela MD at 13:38 EDT ,
--- NOTE | 2023-12-12 11:46 | EDS_ITS ---
<Statement entered by Donte Arango, - 12/13/23 14:38> Supervisory Physician Note Patient was seen and examined with the Advanced Practice Provider. Nursing notes and vital signs have been reviewed. Pertinent old records have been reviewed. I agree with the essential elements of the DILCIA's history, physical exam, assessment, and plan. The differential diagnosis and management options were discussed with the DILCIA. I participated in determining and agree with the management, procedures, final impression and disposition as documented. See changes noted by me. Please see addendum or separate note for any additional details. 68-year-old female presents for evaluation of left-sided flank pain. Symptoms started 2 days ago but have not improved. Prior to arrival the pain became severe and sharp which is what brought her to the ED. Pain is already improving. Pain at times is worse with movement. Associated symptom nausea and vomiting. Denies any fever, chills, shortness of breath, chest pain, dysuria, hematuria, diarrhea, constipation. Gen: A&O x3, NAD Head: Normocephalic, atraumatic Eyes: No sclera icterus, conjunctiva clear ENT: Moist mucous membranes Neck: Trachea midline, No JVD CV: RRR, no murmurs, no peripheral edema Resp: Lungs CTA BL, no w/r/c GI: Abd soft, non-distended, non-tender, no r/r/g Musc: Full ROM, no deformity Skin: Warm, dry Neuro: Alert, oriented, grossly intact, sensation intact Psych: Cooperative, appropriate mood and affect 68-year-old female presents for evaluation of left flank pain. Denies chest pain. Pain is improving. Differential diagnosis includes but is not limited to urolithiasis, UTI, viral syndrome, musculoskeletal strain. Suspect less likely ACS or pneumonia. Presentation patient is hypertensive but also in pain. Zofran, morphine, NS bolus given for symptoms. EKG was personally reviewed and interpreted by myself. Normal sinus rhythm. Heart rate 85. No acute ischemic changes. Chest x-ray personally reviewed and interpreted by me. No pneumonia, pneumothorax, cardiomegaly, effusion. CBC with mild leukocytosis of 12. CMP is consistent with dehydration with hyponatremia and hypokalemia. P.o. potassium ordered. No ELIER. No transaminitis. Troponin unremarkable. Lipase unremarkable. UA is negative for UTI but has leuk esterases. Will send for culture. Patient has ketones in her urine which is consistent with dehydration. She does have blood. This is concerning for possible urolithiasis. CT abdomen pelvis shows no acute abdominal pathology. No urinary calculi. On ree xamination, patient's pain has improved as well as her nausea. Her blood pressure is improved. Patient passed p.o. challenge. Patient stable to discharge home. No clear etiology for patient's pain at this time however given that there is blood in her urine she may have passed a small stone. Could be early viral infection. She confirmed understanding of plan. Follow-up with PCP especially for her blood pressure as well as hematuria/pain. She confirmed understanding of plan. Return precautions explained. Impression: 1. Left flank pain 2. Microscopic hematuria 3. Dehydration secondary to vomiting 4. Hypokalemia HPI History of Present Illness Chief Complaint: Flank Pain Narrative Narrative: Patient is a 68-year-old female with history of osteoporosis, tobacco use who smokes 1 pack/day presenting to the [facility] apartment left sided chest pain, left flank pain that started all of a sudden 2 days ago. Patient states that the pain can be worse with movement however the pain was severe and started sharply while she was just sitting there. Patient did go to urgent care, secondary the patient having some nausea and vomiting, blood pressure elevation, they referred her to the emergency department. Patient states that she felt hot and sweaty however denies any fevers. Patient denies any worsening cough. Denies any sick contacts. PFSH PFSH Home Medications ?Medication ?Instructions ?Recorded ?Last Taken ?Type ondansetron 4 mg disintegrating 4 mg PO Q8H PRN PRN Nausea #10 tabs 12/12/23 Unknown Rx tablet Allergy/AdvReac Type Severity Reaction Status Date / Time gabapentin Allergy Severe Angioedema Verified 12/12/23 11:33 Social History Smoking Status: Current every day smoker tobacco type: cigarettes ROS ROS ED ROS Narrative Constitutional: Negative for fever, weight loss, weakness. Positive for chills Eyes: Negative for vision loss, vision change, double vision ENT: Negative for any sore throat, ear pain, congestion Cardiovascular: Negative for any chest pain, tightness, palpitations Respiratory: Negative for any cough, sputum production, hemoptysis, dyspnea, dyspnea on exertion, orthopnea Gastrointestinal: Negative for any vomiting, diarrhea, constipation, blood in stool, blood in vomit. Positive for left sided flank pain, nausea and vomiting : Negative for any urinary frequency, dysuria, retention, blood in urine Muscle skeletal: Negative for any neck pain, back pain Neurological: Negative for any headache, syncope, dizziness Skin: Negative for any rashes, itching, abrasions, lacerations Psychiatric: Negative for any depression, anxiety, stress, suicidal ideation, homicidal ideation Hematologic: Negative for any excessive bruising, easy bleeding EXAM Physical Exam Narrative Exam Narrative: Vital signs reviewed. Patient is in no obvious distress, patient is hypertensive on my initial evaluation. HEET: Head normocephalic atraumatic, TMs clear bilaterally. Posterior pharynx is clear, moist mucous membranes. Nares clear bilaterally. Neck: Supple with no lymphadenopathy or tenderness. No signs of meningismus. Cardiac: Regular rate and rhythm no murmurs gallops or rubs, equal peripheral pulses bilaterally. Respiratory: Diminished lung sounds of bilateral lower lobes. No chest tenderness. Abdomen: Soft, nontender, nondistended. No abdominal bruit or pulsatile masses. No hepatosplenomegaly Extremities: No peripheral edema, no signs of gross trauma or deformity. Active full range of motion of all extremities. Neuro: Cranial nerves II through XII intact, no focal neurological deficits. Skin: Clean dry and intact with no rash, purpura, petechiae, vesicles or pustules. Backs/flank: No CVA tenderness, no midline spinal tenderness, no deformity. Difficult to elicit the pain. Psych: Normal mood and affect. No SI, HI or acute psychosis. Const Vital Signs: 12/12/23 11:12 12/12/23 11:14 12/12/23 11:14 Temperature 98.4 F 98.9 F Temperature Source Oral Oral Pulse Rate 98 81 80 Respiratory Rate 18 17 17 Respiratory Effort Respiratory Pattern Blood Pressure 174/98 H 185/136 H 185/136 H Blood Pressure Mean 123 152 152 Pulse Ox 96 97 97 Oxygen Delivery Method Room Air Room Air Room Air 12/12/23 11:26 12/12/23 13:14 Temperature Temperature Source Pulse Rate 84 Respiratory Rate 22 H Respiratory Effort Normal Respiratory Pattern Normal Blood Pressure 194/94 H Blood Pressure Mean 127 Pulse Ox 95 Oxygen Delivery Method Positive well nourished and well developed General Appearance ED: well developed MDM MDM Lab Data Labs: Laboratory Results - last 24 hr 12/12/23 12/12/23 12:05 12:31 WBC 12.0 H RBC 4.87 Hgb 15.0 Hct 45.0 MCV 92.4 MCH 30.8 MCHC 33.3 RDW Std Deviation 41.2 RDW Coeff of Alana 12.1 Plt Count 339 MPV 10.4 Immature Gran % (Auto) 0.400 Neut % (Auto) 79.9 H Lymph % (Auto) 14.4 L [place] % (Auto) 5.0 Eos % (Auto) 0.1 Baso % (Auto) 0.2 Absolute Neuts (auto) 9.6 H Absolute Lymphs (auto) 1.73 Nucleated RBC % 0 Sodium 133 L Potassium 3.2 L Chloride 98 Carbon Dioxide 27.0 Anion Gap 8 BUN 11 Creatinine 0.72 Estim Creat Clear Calc 43.15 Est GFR (MDRD) Af Amer 103 Est GFR (MDRD) Non-Af 85 BUN/Creatinine Ratio 15.3 Glucose 104 Calcium 10.3 H Total Bilirubin 0.80 AST 19 ALT 14 Alkaline Phosphatase 104 Troponin I High Sens 18 Total Protein 8.9 H Albumin 4.7 Globulin 4.2 Albumin/Globulin Ratio 1.1 Lipase 33 Urine Color Yellow Urine Clarity Clear Urine pH 7.0 Ur Specific [place] 1.005 Urine Protein 15 H Urine Glucose (UA) Normal Urine Ketones 15 H Urine Occult Blood 150 H Urine Nitrite Negative Urine Bilirubin Negative Urine Urobilinogen Normal Ur Leukocyte Esterase 25 H Urine RBC 5-10 SEEN Urine WBC 0-5 SEEN Ur Squamous Epith Cells 0-5 SEEN Urine Bacteria 0 SEEN Urine Mucus 0 SEEN Radiography Diagnostic Testing: Clinical Impression(s) from Imaging Studies Chest X-Ray 12/12/23 11:40 IMPRESSION: No acute thoracic pathology. Electronically Signed: Kyaw Angela MD at 13:42 EDT , Abdomen/Pelvis CT 12/12/23 11:41 IMPRESSION: No bowel obstruction or inflammation. Normal appendix. No urinary calculi. No hydronephrosis. Atherosclerosis and coronary artery disease. Electronically Signed: Kyaw Angela MD at 13:38 EDT , EKG Normal sinus rhythm: Attestation: I personally reviewed and interpreted this EKG as follows: Comments: Normal sinus rhythm, rate of 85 bpm, MA interval 150 ms, QRS duration 76 ms, no acute ST elevation, no acute infarct noted. Treatment and Re-Evaluation :: Differential diagnosis includes however is not limited to: Obstructing kidney stone, UTI, community-acquired pneumonia, viral syndrome, muscle strain Patient is slightly hypertensive however does not appear to be in any distress. Patient looks nontoxic. Presenting to the emergency department with complaints of left-sided back pain, nausea and vomiting. Patient does have history of tobacco use, patient again is a poor informant, she is having difficulty d escribing the pain. Patient will receive a cardiac workup as well as abdominal workup. Patient will given 4 mg of Zofran, 4 mg of morphine and recheck the patient's blood pressure to see if the blood pressure is pain related. All radiologic examinations were read, reviewed by the emergency department attending. From these reads, a plan of care will be put in place. Patient's chest x-ray shows no acute pathology. Patient CT scan of the abdomen pelvis shows no bowel obstruction or inflammation, normal appendix. No urinary calculi, no hydronephrosis. Patient's laboratory values show a slight elevation of white blood cell count 12.0, no anemia. Chemistries showed a sodium 133, potassium 3.2, this was replaced orally. Kidney function unremarkable, lipase was -33. At this time, patient did have pain relief, patient's blood pressure did improved. Patient did have to be redosed with Zofran secondary to the nausea. Urinalysis was negative for any infection however was sent for culture, there was occult blood, however there is no obstructing stone. Patient need to follow-up outpatient. Patient was able to pass a p.o. challenge, she is instructed to follow-up outpatient. She will follow-up with her PCP regarding her blood pressure as well as her blood in her urine. She is instructed return for any worsening symptoms, all questions answered, stable for discharge. Discharge Plan Triage Chief Complaint: Flank Pain Other Complaint: Hypertension ED Midlevel Provider: Silvano Cristobal ED Provider: Donte Arango Dx/Rx/DC Orders Clinical Impression: Acute flank pain, Hematuria, Nausea & vomiting Instructions: ED Flank Pain, Uncertain Cause, ED Hematuria, ED Vomiting (Adult) Prescriptions: New ondansetron 4 mg tablet,disintegrating 4 mg PO Q8H PRN PRN (Reason: Nausea) Qty: 10 0RF Primary Care Provider: Silvano Alfaro Referrals: Silvano Alfaro MD [Primary Care Provider] - Activity Restrictions/Additional Instructions: You had a negative workup today, please follow-up with your PCP regarding your blood pressure, as well as your blood in your urine. Use the nausea medicine for any sort of nausea at home. Advance her diet as tolerated. Continue to use ibuprofen and Tylenol. Print Language: Citizen Of [place] Disposition Disposition: Home, Self Care
--- NOTE | 2023-12-12 11:54 | EKG12_ITS ---
Test Reason : Blood Pressure : / mmHG Vent. Rate : 085 BPM Atrial Rate : 085 BPM P-R Int : 150 ms QRS Dur : 076 ms QT Int : 402 ms P-R-T Axes : 082 052 069 degrees QTc Int : 478 ms Normal sinus rhythm Septal infarct , age undetermined Abnormal ECG Confirmed by BRIGIDO CELIS, ANDREY ([id number]), senior technical editor COCO GALVAN ([id number]) on 12/15/2023 2:00:09 PM Referred By: Confirmed By:ANDREY FOFANA MD
[2023-12-12] MEDS: Morphine 4 MG/ML Syringe IV (11:57)
[2023-12-12] MEDS: Ondansetron 4 MG/2 ML Vial IV ×2 (11:57→13:48)
[2023-12-12] MEDS: 0.9% Normal Saline (1000mL) 1,000 ML 999 ML IV (11:58)
[2023-12-12 12:14] LABS: Absolute Lymphocyte Count 1.73 X10^3/uL (0.83-4.51); Absolute Neutrophil Count 9.6 X10^3/uL (2.0-7.7); Basophil# 0.02 X10^3/uL; Basophil% 0.2 % (0-1); Eosinophil# 0.01 X10^3/uL; Eosinophils% 0.1 % (0-5); Lymphocyte # 1.73 X10^3/ul (0.83-4.51); Lymphocyte % 14.4 % (19-41); Mean Corp Hgb Conc 33.3 g/dL (32-36); Mean Corpuscular Hgb 30.8 pg (27.0-32.0); Mean Corpuscular Volume 92.4 fL (81-99); Mean Platelet Vol. 10.4 fl (6.2-12.0); NRBC Flagged by Analyzer 0 % (0-5); Neutrophil % 79.9 % (47-70); Platelet Count 339 K/mm3 (150-450); RBC Distribution Width CV 12.1 % (11.6-14.6); RBC Distribution Width SD 41.2 fl (35.1-43.9); Red Blood Count 4.87 M/mm3 (4.2-5.4)
[2023-12-12 12:37] LABS: Bacteria 0 SEEN /hpf (None Seen); Mucous, Urine 0 SEEN /hpf (<or=2+)
[2023-12-12 12:38] LABS: ALB/GLOB Ratio 1.1 RATIO (0.9-2.4); AST(SGOT) 19 U/L (15-37); Alanine Aminotransfer ALT/SGPT 14 U/L (13-56); Albumin, Serum 4.7 g/dL (3.2-5.0); Alkaline Phosphatase 104 U/L (45-117); Anion Gap 8 (5-15); BUN 11 mg/dL (7-18); BUN/Creat Ratio 15.3 RATIO (10-20); Calcium,Total 10.3 mg/dL (8.5-10.1); Chloride 98 mmol/L (98-107); Creatinine, Serum 0.72 mg/dL (0.55-1.02); EST Glomerular Filtration Rate 85 mL/min (>60); Est Glom Filt Rate - Afr Amer 103 mL/min (>60); Estimated Creatinine Clearance 43.15 ml/min; Globulin 4.2 g/dL (2.2-4.2); Glucose 104 mg/dL (74-106); Lipase 33 U/L (13-75); Potassium 3.2 mmol/L (3.5-5.1); Protein, Total 8.9 g/dL (6.4-8.2); Sodium Level 133 mmol/L (136-145); Troponin-I HS 18 pg/mL (3.0-54.0)
[2023-12-12 12:40] LABS: Color, Urine Yellow (Yellow); Glucose, Dipstick Normal (Normal); Ketone-Dipstick 15 mg/dl (Negative); Leukocyte Esterase-Dipstick 25 /ul (Negative); Nitrite-Dipstick Negative (Negative); Occult Blood-Urine 150 /ul (Negative); Protein-Dipstick 15 mg/dl (Negative); Specific Gravity, Urine 1.005 (1.002-1.030); Urine Bilirubin Dipstick Negative (Negative); Urine Clarity Clear (Clear); Urine Urobilinogen Normal (Normal)
[2023-12-12 12:47] LABS: Red Blood Cells-Urine 5-10 SEEN /hpf (0-5); Squamous Epithelial Cells - UA 0-5 SEEN /hpf (5-10); White Blood Cells 0-5 SEEN /hpf (0-5)
[2023-12-12 13:14] VITALS: BP 194/94; PULSE 84; RESP 22; O2SAT 95
[2023-12-12] MEDS: Potassium Chloride Oral Tablet 20 MEQ 40 MEQ PO (13:48)
[2023-12-12 15:00] VITALS: BP 190/98; PULSE 82; PULSE 86; RESP 16; TEMP 36.6; O2SAT 94
== END 2023-12-12 15:05 | disposition home or self-care (01) ==
PROVIDERS: Nurse Practitioner; Emergency Provider Surgery; PCP Family Medicine; Visit Provider Surgery
DX: R10.9 Unspecified abdominal pain (principal); F17.210 Nicotine dependence, cigarettes, uncomplicated; R31.21 Asymptomatic microscopic hematuria; E86.0 Dehydration; R11.10 Vomiting, unspecified; E87.6 Hypokalemia
CPT/HCPCS: 71046; 74176; 80053; 81001; 83690; 84484; 85025; 87086; 87088; 87631; 93005; 96361; 96374; 96375; 96376; 99284; J7030; A4216; J2405

== ENCOUNTER 2023-12-13 19:53 | Emergency (ER) | payer MEDICARE, SELFPAY ==
[2023-12-13 19:55] VITALS: BP 185/95; PULSE 107; RESP 18; TEMP 36.3; O2SAT 87; BMI 17.9
[2023-12-13] MEDS: traMADol 50 MG Tablet PO (20:58)
[2023-12-13] MEDS: amLODIPine 5 MG Tablet PO (20:58)
[2023-12-13 20:59] VITALS: BP 177/78; PULSE 78; RESP 16; TEMP 36.7; O2SAT 99
--- NOTE | 2023-12-13 21:03 | EX.ED.DYSGE1 ---
HPI History of Present Illness Chief Complaint: Back Narrative Narrative: 68-year-old female presents with her friend because of left flank pain that she has had for the last few days. She states she was seen in the emergency department here and had a workup including a CT scan, which did not show anything acute, no kidney stone. She denies any exacerbating or alleviating factors but states that her whole left back and flank hurts her. No fevers or chills, no other symptoms. Of note, she notes that her blood pressure was elevated as well. While it was elevated yesterday, she states she was only given Zofran for nausea and sent home. She took 1 of those this evening because she did have mild nausea, but noticed that her blood pressure was better than it was yesterday, but was still elevated in the 180's. She denies any chest pain or palpitations, no shortness of breath. PFSH PFS Home Medications ?Medication ?Instructions ?Recorded ?Last Taken ?Type acetaminophen 325 mg tablet 650 mg (2 x 325 mg) PO Q4H PRN PRN 05/10/20 Unknown Rx fever, pain 1-10 calcium 500 mg (as 1 tab PO BIDCM supplement 05/10/20 Unknown History carbonate)-vitamin D3 5 mcg (200 unit) tablet aripiprazole 2 mg tablet 2 mg PO QHS #1 TAB 05/25/20 Unknown Rx bisacodyl 10 mg rectal suppository 10 mg RECTAL .PRN X 1 PRN 05/25/20 Unknown Rx Constipation thiamine HCl (vitamin B1) 100 mg 100 mg PO BIDCM 05/25/20 Unknown Rx tablet aspirin 81 mg tablet,delayed 81 mg PO DAILY 07/17/22 Unknown History release alendronate 70 mg tablet 70 mg PO QWEEK 12/13/23 Unknown History amlodipine 5 mg tablet (Norvasc) 5 mg PO DAILY #30 tabs 12/13/23 Unknown Rx rosuvastatin 5 mg tablet 5 mg PO DAILY 12/13/23 Unknown History tramadol 50 mg tablet 50 mg PO Q6H PRN pain #12 tabs 12/13/23 Unknown Rx Allergy/AdvReac Type Severity Reaction Status Date / Time No Known Allergies Allergy Verified 12/13/23 19:55 Social History Smoking Status: Current every day smoker tobacco type: cigarettes alcohol intake: former substance use type: does not use ROS ROS ED ROS Narrative Constitutional: No fever, no chills. HEENT: No sore throat. No neck pain. No loss of vision. No rhinorrhea. Cardiovascular: No chest pain. No palpitations. No pedal edema. Respiratory: No cough, no shortness of breath. Abdominal: No abdominal pain. No nausea. No vomiting. Genitourinary: No dysuria. No hematuria. Positive left flank pain. Musculoskeletal: No myalgias. No arthralgias. Neurologic: No headaches. No dizziness. No lightheadedness. Skin: No rash. No change in color. Psychiatric: No depression. No anxiety. EXAM Physical Exam Narrative Exam Narrative: Afebrile. Vital signs noted. Regular rate and rhythm. Lungs are clear to auscultation bilaterally. Abdomen soft nontender with normal active bowel sounds. Neurological examination is nonfocal and nonlateralizing. No pedal edema. Const Vital Signs: 12/13/23 19:55 12/13/23 20:28 12/13/23 20:59 Temperature 97.4 F L 98.1 F Temperature Source Temporal Pulse Rate 107 H 78 Respiratory Rate 18 16 Respiratory Pattern Normal Blood Pressure 185/95 H 177/78 H Blood Pressure Mean 125 111 Pulse Ox 87 99 Oxygen Delivery Method Room Air MDM MDM MDM Narrative Medical decision making narrative: I attempted to review the patient's prior records under this medical record number, but apparently she had registered under [employer] yesterday, so I reviewed the other chart which had a solitary visit. She did have a CT of the flank and laboratory work which were grossly unremarkable. Although she has slight elevation in her WBC count, I do not feel it needs to be repeated. Additionally she had urinalysis and CT imaging which I also do not feel needs repeated. Initially she had a blood pressure systolically in the 180s and it has come down by itself to the 170s. I do not feel that she requires admission and essentially she is having asymptomatic hypertension because she does not have headache or chest pain or shortness of breath. I feel that in the differential diagnosis for her back pain could be more musculoskeletal back pain given her negative workup yesterday. I did discuss patient with her primary care provider Dr. Alfaro after she was ordered an Ultram tablet and Norvasc 5 mg orally. He agrees with starting her on Norvasc 5 mg and giving her a few Ultram tablets for her pain and he will follow-up with her later this week. I do not feel she requires observation or admission. I feel she can be discharged safely home with follow-up. Return instructions were reviewed. Disposition is discharged home in stable condition. Discharge Plan Triage Chief Complaint: Back Other Complaint: Hypertension ED Provider: Thony Claros Dx/Rx/DC Orders Clinical Impression: Hypertension, Acute left flank pain Instructions: ED Back Pain (Acute or Chronic), ED Flank Pain, Uncertain Cause, ED Hypertension New Begin Treatment Prescriptions: New tramadol 50 mg tablet 50 mg PO Q6H PRN (Reason: pain) Qty: 12 0RF amlodipine [Norvasc] 5 mg tablet 5 mg PO DAILY Qty: 30 0RF No Action aspirin 81 mg tablet,delayed release (DR/EC) 81 mg PO DAILY acetaminophen 325 MG tablet 650 mg PO Q4H PRN PRN (Reason: fever, pain 1-10) 0RF calcium carbonate-vitamin D3 1 TABLET tablet 1 tab PO BIDCM bisacodyl 10 MG suppository 10 mg RECTAL .PRN X 1 PRN (Reason: Constipation) 0RF thiamine HCl (vitamin B1) 100 MG tablet 100 mg PO BIDCM 0RF aripiprazole 2 MG tablet 2 mg PO QHS Qty: 1 0RF alendronate 70 mg tablet 70 mg PO QWEEK rosuvastatin 5 mg tablet 5 mg PO DAILY Primary Care Provider: Silvano Alfaro Referrals: Silvano Alfaro MD [Primary Care Provider] - 3-5 Days Activity Restrictions/Additional Instructions: Keep a full log of your blood pressures for your primary care provider. Start your new medication of Norvasc. You can take Ultram as needed for pain. Return with new or worsening symptoms. Print Language: Thai Disposition Disposition: Home, Self Care
== END 2023-12-13 21:43 | disposition home or self-care (01) ==
PROVIDERS: Emergency Provider Emergency Medicine; PCP Family Medicine; Referring Provider Emergency Medicine; Visit Provider Emergency Medicine
DX: M54.9 Dorsalgia, unspecified (principal); I10 Essential (primary) hypertension; R10.9 Unspecified abdominal pain; F17.210 Nicotine dependence, cigarettes, uncomplicated
CPT/HCPCS: 99283; A4216

== ENCOUNTER → 2024-05-16 | Outpatient (CLI) | payer MEDICARE, SELFPAY ==
[2024-05-16 21:49] LABS: Anion Gap 13 (5-15); BUN 13 mg/dL (4-19); BUN/Creat Ratio 24.4 RATIO (10-20); Calcium 10.1 mg/dL (7.6-11.0); Carbon Dioxide 23.8 mmol/L (22.0-29.0); Chloride 104 mmol/L (96-108); Creatinine, Serum 0.55 mg/dL (0.70-1.20); EST Glomerular Filtration Rate 99 (>60); Glucose 82 mg/dL (70-99); Potassium 3.6 mmol/L (3.3-5.1); Sodium Level 141 mmol/L (133-145)
[2024-05-16 23:00] LABS: Cholesterol 146 mg/dL (<=200); High Density Lipoprotein 59 mg/dL; Low Density Lipoprotein Calc. 52 mg/dL; Triglycerides 179 mg/dL; Very Low Density Lipoprotein 36 mg/dL (5-40); cholesterol:hdl ratio screen 2.49
== END | disposition home or self-care (01) ==
LOC: MFPLAB 11:51
PROVIDERS: PCP Family Medicine; Referring Provider Family Medicine; Visit Provider Family Medicine
DX: I10 Essential (primary) hypertension (principal)
CPT/HCPCS: 36415; 80048; 80061

== ENCOUNTER → 2024-07-05 | Outpatient (CLI) | payer MEDICARE, SELFPAY ==
--- NOTE | 2024-07-05 12:44 | CDU_ITS ---
Reason For Study : CAROTID ARTERIAL DISEASE Rt. Velocities/BP Lt. Velocities/BP Prox CCA 47.8/8.1 cm/sec. Prox CCA 99.0/11.3 cm/sec. Mid CCA 65.8/11.9 cm/sec. Mid CCA 102.7/20.4 cm/sec. Dist CCA 45.3/10.3 cm/sec. Dist CCA 84.2/14.2 cm/sec. Prox ICA 63.7/17.1 cm/sec. Prox ICA 89.1/10.6 cm/sec. Mid ICA 65.0/15.8 cm/sec. Mid ICA 107.2/27.4 cm/sec. Dist ICA 96.9/29.9 cm/sec. Dist ICA 139.9/39.5 cm/sec. Rt. ICA/CCA = 96.9/65.8=1.5. Lt. ICA/CCA = 139.9/102.7=1.4. Prox ECA 112.5/13.0 cm/sec. Prox ECA 72.0/8.1 cm/sec. Rt. Vert. 48.8/10.4 cm/sec. Lt. Vert. 52.8/16.0 cm/sec. Right Extracranial There is heterogeneous, irregular atherosclerotic plaque noted in the right common carotid artery. There is heterogeneous, irregular atherosclerotic plaque noted in the right internal carotid artery. There is homogeneous, smooth atherosclerotic plaque noted in the right external carotid artery. Antegrade flow is noted in the right vertebral artery. Left Extracranial There is heterogeneous, irregular atherosclerotic plaque noted in the left common carotid artery. There is homogeneous, smooth atherosclerotic plaque noted in the left internal carotid artery. The left internal carotid artery is very tortuous. There is heterogeneous, irregular atherosclerotic plaque noted in the left external carotid artery. Antegrade flow is noted in the left vertebral artery. Procedure Carotid Duplex [id number]. This is a Carotid Duplex examination using B-mode, color flow and specral Doppler. Exam performed in department. VL/Carotid Duplex Ultrasound Interpretation Summary Mild (<50%) stenosis right extracranial internal carotid. Moderate (50-69%) stenosis left extracranial internal carotid. Patent and antegrade vertebrals bilaterally. Ordering Physician: Silvano Alfaro Referring Physician: Silvano Alfaro Performed By: Marzena Gan, LINDA, RVT
== END | disposition home or self-care (01) ==
LOC: CVS 12:43
PROVIDERS: PCP Family Medicine; Referring Provider Family Medicine; Visit Provider Family Medicine
DX: Z12.31 Encounter for screening mammogram for malignant neoplasm of breast (principal); I77.9 Disorder of arteries and arterioles, unspecified; I65.21 Occlusion and stenosis of right carotid artery
CPT/HCPCS: 93880